=== PATIENT | female | born 1980 | race Two or more races ===

== ENCOUNTER → 2016-11-19 | Outpatient (CLI) | payer OTHER ==
[~2016-11-19] MED LIST: IRONTAB3 PO; PREV30TA OR; TRAZ100T4 PO; [UNRECOGNIZED DRUG - OTHER]; [UNRECOGNIZED DRUG - REMARK] PO
--- NOTE | 2016-12-15 01:53 | ECWPNPC ---
PATIENT NAME: OBED ANDERSON : 1980 GENDER: FEMALE VISIT DATE: 11/19/2016 DISCHARGE DATE: 11/19/16 1610 VISIT LOCKED DATE TIME: PHYSICIAN: PREM JONES RESOURCE: PREM JONES REASON FOR APPOINTMENT 1. CHRONIC SHOULDER/LOW BACK HISTORY OF PRESENT ILLNESS NEW PATIENT CONSULT: WHEN DID YOUR PAIN FIRST START? . BRIEFLY DESCRIBE HOW YOUR PAIN STARTED? . HOW DOES YOUR PAIN CHANGE WITH TIME? . DOES YOUR PAIN AWAKEN YOU FROM SLEEP? . HOW MANY HOURS OF SLEEP DO YOU NORMALLY GET? . ANY DIAGNOSTIC TESTING? . FACILITY WHERE TESTS WERE DONE? ____. PAIN TREATMENT TREATMENT YES CANCER HAVE YOU EVER HAD ANY TYPE OF CANCER?NO NO. PAIN SCREENING: PATIENT HAS A COMPLAINT OF ACUTE OR CHRONIC PAIN YES FALL RISK SCREENING: SCREENING :NO FALLS IN THE PAST YEAR DONIS INVENTORY: QUESTIONNAIRE ASSESSEDYES SCORE VALUE CALCULATED YES SCORE: 2/63. DENIES SUICIDDAL OR HOMICIDAL IDEATION TODAY'S VISIT: NOTES: ONSET OF PAIN AFER WORKING AT [employer] AND HAD RESIDENT "POP HIS JAW OUT" ON HER SHOULDER RIGHT. HAS ALSO NOTED THE PAIN SENSATION IF CARRYING AN OBJECT ON THE RIGHT SIDE. RIGHT FINGER TIPS, GOES NUMB. THEY TEURN WHITE AND CAN HURT WITH THE COLD. STRENGTH IS FAIRLY NORMAL BUT SLIGHTLY DECREASED. NO SWELLING IN JOINTS. SHOULDER CAN OCCASIONALLY SWELL. LOW BACK PAIN HAS BEEN PRESENT SINCE PRIOR TO GASTRIC BYPASS SURGERY. ANN MARIE IS WORSE WHEN BENDING OVER AND ESPECIALLY WHEN STANDING BACK UP. WORST IN EARLY AM. PAIN RARELY RADIATES TO HIP OR LEGS. NO N/T IN FEET OR TOES. NO WEAKNESS I LEGS. HAS DONE PT AND HAD TENS WHICH WAS HELPFUL. HAD MRI AT [facility]. NO INJECTIONS, NO CHIRO. PAIN CAN LIMIT ACTIVIES AFTER. CAN DECREASE SLEEP. . CURRENT MEDICATIONS TAKING FERROUS SULFATE 325 (65 FE) MG TABLET 1 TABLET WITH MEAL ORALLY TWICE A DAY TAKING COLACE 100 MG CAPSULE 1 -2 CAPSULES NEEDED ORALLY ONCE A DAY TAKING ACETAMINOPHEN 500 MG CAPSULE 2 CAPSULES NEEDED ORALLY EVERY 6-8 HRS NEEDED FOR PAIN TAKING OMEPRAZOLE 40 MG CAPSULE DELAYED RELEASE 1 CAPSULE BEFORE MEAL ORALLY ONCE A DAY TAKING NATURAL VITAMIN D-3 5000 UNIT TABLET 1 TAB WITH MEAL ORALLY TAKING TRAZODONE HCL 100 MG TABLET 1 TABLET AT BEDTIME ORALLY ONCE A DAY TAKING TRAMADOL HCL 50 MG TABLET 1 TAB ORALLY TID TAKING BACLOFEN 10 MG TABLET 1 TABLET WITH FOOD OR MILK ORALLY THREE TIMES A DAY NOT-TAKING PHYSICAL THERAPY EVALUATE AND TREAT PHYSICAL THERAPY DIRECTED CHRONIC RIGHT SHOULDER PAIN 1-3X/WEEK NOT-TAKING VITAMIN B-12 1000 MCG TABLET SUBLINGUAL 1 TABLET UNDER THE TONGUE AND ALLOW TO DISSOLVE SUBLINGUAL ONCE A DAY NOT-TAKING AMOXICILLIN 500 MG CAPSULE 1 CAPSULE ORALLY 3 TIMES A DAY NOT-TAKING VENOFER 20 MG/ML SOLUTION DIRECTED INTRAVENOUS NOT-TAKING METHOCARBAMOL 500 MG TABLET 2 TABS ORAL EVERY 6 HOURS MEDICATION LIST REVIEWED AND RECONCILED WITH THE PATIENT PAST MEDICAL HISTORY GASTROESOPHAGEAL REFLUX DISEASE, ESOPHAGITIS PRESENCE NOT SPECIFIED IRON DEFICIENCY ANEMIA, UNSPECIFIED IRON DEFICIENCY ANEMIA TYPE STATUS POST BARIATRIC SURGERY PRIMARY INSOMNIA VITAMIN D DEFICIENCY VITAMIN B12 DEFICIENCY ALLERGIES BACTRIM DS: RASH/FEVER: ALLERGY SURGICAL HISTORY ASTRIC BY PASS 2005 SECTION 2007,2011 FAMILY HISTORY FATHER: ALIVE MOTHER: ALIVE SIBLINGS: ALIVE SON(S): ALIVE DAUGHTER(S): ALIVE SOCIAL HISTORY GENERAL: TOBACCO USE ARE YOU A:NONSMOKER RECREATIONAL DRUG USE DRUG USE?NO CAFFEINE CAFFEINE USE?NO DIET: NONE. EXERCISE: WALKS DAILY. MARITAL STATUS: . OTHERS AT HOME: MOTHER, SISTER AND CHILDREN. PETS: CAT. SABIANIST: NO PREFERENCE. LANGUAGE: [place]. EDUCATION: GRADUATED HS. PSYCHOLOGICAL HX TREATMENTNO PAIN CLINIC PFS, CLERGY, PUBLIC HEALTH REFERRALS CLERGY REFERRAL NEEDED?NO WAS THE PROVIDER NOTIFIED OF ANY PERTINENT INFO?NO PFS REFERRAL NEEDED?NO PUBLIC HEALTH REFERRAL NEEDED?NO PATIENT: ____. ADVANCED DIRECTIVES HEALTH CARE PROXY?NO POWER OF CLEANING TEAM MEMBER?NO HOSPITALIZATION/MAJOR DIAGNOSTIC PROCEDURE SURGERIES LISTED ONLY HOSPITALIZATIONS REVIEW OF SYSTEMS CONSTITUTIONAL: ANY CHANGE IN YOUR MEDICAL CONDITION? NO . CHILLS NO . FEVER NO . INFECTION: DO YOU HAVE NEW INFECTIONS? NO . DO YOU HAVE HISTORY OF MRSA? NO . MUSCULOSKELETAL: ANY NEW PATTERNS OF PAIN OR NUMBNESS? NO . SYTEMIC LUPUS NO . GASTROENTEROLOGY: GENERAL S/P GASTRIC BYPASS SURGERY 2004. HAS GI PAIN, NO GI BLEED. . ANY NEW CHANGE IN BOWEL CONTROL? NO . BARRETTS ESOPHAGUS NO . CIRRHOSIS NO . HEPATITIS NO . LIVER FAILURE NO . ACID REFLUX YES - TAKES PRN NEEDED . UNEXPLAINED WEIGHT LOSS NO . GENITOURINARY: ANY NEW CHANGE IN BLADDER CONTROL? NO . IS THERE A CHANCE YOU COULD BE ? NO . HEMATOLOGY/LYMPH: DO YOU TAKE ANY BLOOD THINNERS? (FOR EXAMPLE- COUMADIN, PLAVIX, AGGRENOX, PLATEL, PRADAXA, OR XARELTO) NO . WHEN WAS YOUR LAST DOSE? DATE: TIME: . LOW PLATELET COUNT NO . SICKLE CELL DISEASE NO . VON WILLIEBRANDS NO . FACTOR V LEIDEN NO . THALLASEMIA NO . ANEMIA CHRONIC- HAS HAD IRON INFUSIONS. HAS NEEDED BLOOD TRANSFUSION . EASY BRUISING NO . NEUROLOGY: HAVE YOU FALLEN IN THE PAST 6 MONTHS? NO . ANY NEW EXTREMITY NUMBNESS OR WEAKNESS? NO . HEAD INJURY NO . DEMENTIA NO . CEREBRAL PALSY NO . MULTIPLE SCLEROSIS NO . DIZZINESS NO . HEADACHE NO . STROKES NO . VERTIGO NO . CARDIOLOGY: DO YOU HAVE A PACEMAKER OR DEFIBRILLATOR? NO . ANGINA NO . HEART ATTACK NO . HEART SURGERY NO . CONGESTIVE HEART FAILURE/FLUID OVERLOAD NO . CHEST PAIN NO . HIGH BLOOD PRESSURE NO . IRREGULAR HEART BEAT NO . RESPIRATORY: HAVE YOU BEEN SICK IN THE PAST WEEK? NO . FEVER NO . FLU LIKE SYMPTOMS? NO . CPAP NO . BYPAP NO . ASTHMA NO . EMPHYSEMA NO . CHRONIC LUNG DISEASES NO . SHORTNESS OF BREATH ON EXERTION NO . DO YOU USE ANY TYPE OF TOBACCO (SMOKE, SMOKELESS, CHEW)? NO . COUGH NO . SNORING NO . INTEGUMENTARY: DO YOU HAVE ANY RASHES OR OPEN SORES? NO . ALLERGIC/IMMUNO: ARE YOU ALLERGIC TO SHELLFISH OR IV DYE? NO . ANY NEW ALLERGIES? NO . PSYCHIATRIC: DO YOU HAVE THOUGHTS OF HURTING YOURSELF OR SOMEONE ELSE? NO . ARE YOU ABUSED, NEGLECTED, OR IN AN UNSAFE ENVIRONMENT? NO . ENDOCRINOLOGY: ARE YOU DIABETIC? NO . THYROID DISORDER NO . OTHER: DO YOU NEED ANY PRESCRIPTIONS? NO . IF YES, PLEASE LIST: ____ . ANY NEW PROBLEMS WITH YOUR MEDICATIONS? NO . WHEN DID YOU LAST EAT? ____ . WHEN DID YOU LAST DRINK? ____ . WHAT DID YOU LAST DRINK? ____ . NAME OF PERSON DRIVING YOU HOME? ____ . DO YOU HAVE ANY OTHER QUESTIONS OR CONCERNS NO . REVIEWED BY: PROVIDER: PREM CHAPPELLP . VITAL SIGNS WT 175 LBS, HT 65 IN, BMI 29.12 INDEX, BP 114/60 MM HG, HR 100 /MIN, RR 18 /MIN, TEMP 98.0 F, OXYGEN SAT % 100%, NA INITIALS SC14:50, REVIEWED BY: KG. EXAMINATION GENERAL EXAMINATION: PSYCHALERT , ORIENTED X 3 , APPROPRIATE MOOD AND AFFECT , TALKATIVE. HEENT:NORMOCEPHALIC, NO LYMPHADENOPATHY, NO THYROMEGLY. LUNGS:CLEAR TO AUSCULTATION BILATERALLY. HEART:HEART RATE REGULAR, NORMAL S1S2, NO MURMURS, CLICK OR RUBS. ABDOMEN:SOFT AND NOT TENDER, BOWEL SOUNDS ACTIVE IN ALL QUADRANTS. MUSCULOSKELETAL:MUSCLE STRENGTH TESTING 5/5 BILATERAL LOWER EXTREMITIES. CAN FLEX TO 45 DEGREES, EXTEND TO 10 DEGREES, ROTATE WITHOUT DIFFICULTY. NEG SLR. POINT TENDERNESS OVER LUMBOSACRAL AXIS. POSTURE UPRIGHT. GAIT NONANTALGIC, TRIGGER POINTS:, ELICITED WITH PALPATION OVER LUMBAR PARAVERTEBRAL MUSCLES AND INTO THE SACRUM. TIGHT FIBROUS BANDS ARE IDENTIFIED IN THIS REGION RESTRICTION OF ROM IN THIS AREA. NEUROLOGIC EXAM:NO SENSORY EFICEIT IN LOWER EXTREMITIES TO LIGHTTOUCH. DIAGNOSTIC TESTS REVIEWEDXRAYS OF LUMBAR SPINE COMPLETED ON 10/13/15. THIS DEMONSTRATED MILD SCOLIOSIS. L5-S1 DEGENERATIVE DISC DISEASE. NO VERTEBAL COMPRESSSION CONFORMITIES.. ASSESSMENTS MYALGIA - M79.1 (PRIMARY) TREATMENT MYALGIA STOP BACLOFEN TABLET, 10 MG, 1 TABLET WITH FOOD OR MILK, ORALLY, THREE TIMES A DAY START BACLOFEN TABLET, 20 MG, 1 TABLET WITH FOOD OR MILK, ORALLY, EVERY 8 HRS, 30 DAY(S), 90, REFILLS 2 [facility] SPINE, SCOLIOSIS [id number],PREM M 11/19/2016 4:01:25 PM > VISIBLE ROTATION TRIGGER POINT 3 + WANDAPREM JONES 11/19/2016 4:02:54 PM > RIGHT NECK/SHOULDER NOTES: BACLOFEN: TAKE 1/2 TAB IN AM AND MIDDAY, AND WHOLE TAB AT BEDTIME. PROCEDURE CODES FA211 ESTABILISHED PATIENT [facility] CHARGE FOLLOW UP AFTER INJECTION (REASON: [facility] NEED MRI[facility]S D[facility] AND LOW BACK. CHECK AUTH FOR TPI) ELECTRONICALLY SIGNED BY KALI RAHMAN ON 12/14/2016 AT 12:50 PM EST DISCLAIMER : THIS IS A VISIT SUMMARY EXTRACTED FROM THE [employer] CHART. IT IS NOT A COPY OF THE [employer] PROGRESS NOTE. [facility]
== END ==
LOC: M PAIN 15:20
PROVIDERS: ATTEND Nurse Practitioner Family
DX: G89.29 Other chronic pain (principal); M79.1 Myalgia; K21.9 Gastro-esophageal reflux disease without esophagitis; D50.9 Iron deficiency anemia, unspecified; F51.01 Primary insomnia; E55.9 Vitamin D deficiency, unspecified; D51.9 Vitamin B12 deficiency anemia, unspecified; Z88.1 Allergy status to other antibiotic agents; Z79.1 Long term (current) use of non-steroidal anti-inflammatories (NSAID); Z79.891 Long term (current) use of opiate analgesic; Z79.899 Other long term (current) drug therapy; Z98.84 Bariatric surgery status

== ENCOUNTER 2016-11-25 11:49 | Emergency (ER) | payer OTHER ==
--- NOTE | 2016-11-25 13:01 | EDDOCDS ---
Physician Documentation [facility] Name: Miroslava Bang Age: 36 yrs Sex: Female : 1980 Arrival Date: 11/25/2016 Time: 11:49 Bed TR7 Private MD: Dee Duffy C Disposition: 11/25/16 12:55 Discharged to Home/Self Care. Impression: Acute frontal sinusitis, unspecified. - Condition is Stable. - Discharge Instructions: Sinusitis, Adult. - Prescriptions for Augmentin 875- 125 mg Oral Tablet - take 1 tablet by ORAL route every 12 hours for 10 days; 20 tablet. Fluticasone 50 mcg/actuation Nasal [place], Suspension - inhale 1 spray by INTRANASAL route 2 times per day; 1 bottle. - Medication Reconciliation form. - Follow up: Emergency Department; When: As needed; Reason: Worsening of conditions. Follow up: Dee Duffy; When: Call to arrange an appointment; Reason: Wound/Symptom Recheck, Recheck today's complaints, Worsening of conditions, Continuance of care. - Problem is an ongoing problem. - Symptoms are unchanged. Historical: - Allergies: Bactrim (Rash); - Home Meds: 1. baclofen 20 mg Oral tab twice a day 2. Iron CR 250 mg Oral cpER daily 3. trazodone 100 mg Oral tab nightly - PMHx: Anemia; Depression; - PSHx: Gastric Bypass; ; - Social history: Smoking status: Patient states was never smoker of tobacco. No barriers to communication noted, The patient speaks fluent [place], Speaks appropriately for age. - Family history: Not pertinent. - : The pt / caregiver states he / she is not on anticoagulants. Home medication list is obtained from the patient. - Exposure Risk Screening:: None identified. 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 5 in. (165.10 cm); Pain 0/10; 11:52 Body Mass Index 29.12 (79.38 kg, 165.10 cm) elp Signatures: Floyd Reina RN RN mlb1 Iman Clifton,RN RN ck1 Brennon, Pietro, BONNIE SANC cc10 MTDD
--- NOTE | 2016-11-25 13:01 | EDDOCDS ---
Nurse's Notes [facility] Name: Miroslava Bang Age: 36 yrs Sex: Female : 1980 Arrival Date: 11/25/2016 Time: 11:49 Bed TR7 Private MD: Dee Duffy C Diagnosis: Acute frontal sinusitis, unspecified Presentation: 11/25 11:53 Presenting complaint: Patient states: Sinus and ear congestion, cough, sore throat for ck1 three weeks. Adult Sepsis Screening: The patient does not have new or worsening altered mentation. Patient's respiratory rate is less than 22. Systolic blood pressure is greater than 100. Patient has a qSOFA score of 0- Negative Sepsis Screen. Suicide/Homicide risk assessment- the patient denies having any suicidal and/or homicidal ideations and does not present with any other emotional, behavioral or mental health complaints. Status: Patient is not a special service representative or dependent. Transition of care: patient was not received from another setting of care. 11:53 Acuity: RUBIO Level 4 ck1 11:53 Method Of Arrival: Walkin/Carried/Asstd ck1 Triage Assessment: 11:55 General: Appears in no apparent distress, comfortable, Behavior is appropriate for age, ck1 cooperative. Pain: Location: head Pain currently is 4 out of 10 on a pain scale. HIV screening NA for this visit Offered previously. Neurological: Level of Consciousness is awake, alert, obeys commands, Oriented to person, place, time. Respiratory: Respiratory effort is unlabored, Respiratory pattern is regular, symmetrical. Derm: Skin is intact, is healthy with good turgor, Skin is pink, warm & dry. 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 baclofen 20 mg Oral tab twice a day 2. Iron CR 250 mg Oral cpER daily 3. trazodone 100 mg Oral tab nightly - PMHx: Anemia; Depression; - PSHx: Gastric Bypass; ; - Social history: Smoking status: Patient states was never smoker of tobacco. No barriers to communication noted, The patient speaks fluent Rwandan, Speaks appropriately for age. - Family history: Not pertinent. - : The pt / caregiver states he / she is not on anticoagulants. Home medication list is obtained from the patient. - Exposure Risk Screening:: None identified. Screenin:56 Screening information is obtained from the patient. Fall risk: No risks identified. mlb1 Assistance ADL's: requires no assistance with activities of daily living. Abuse/DV Screen: The patient / caregiver reports he/she is: not in a situation that causes fear, pain or injury. Nutritional screening: No deficits noted. Advance Directives: Currently, there is no health care proxy. home support is adequate. Assessment: 12:59 General: Appears in no apparent distress, Behavior is appropriate for age, cooperative. mlb1 Pain: Denies pain. Respiratory: Airway is patent Respiratory effort is even, unlabored, Breath sounds are clear bilaterally. Reports cough that is persistent. Vital Signs: 11:52 BP 132 / 85; Pulse 114; Resp 20; Temp 98.4; Pulse Ox 100% ; Weight 79.38 kg; Height 5 elp ft. 5 in. (165.10 cm); Pain 0/10; 11:52 Body Mass Index 29.12 (79.38 kg, 165.10 cm) [facility] Vitals: 11:52 Log In Time: November 25, 2016 at 11:50. [facility] ED Course: 11:51 Patient visited by Nidia Dykes PCA. elp 11:51 Dee Duffy is Private Physician. elp 11:51 Patient moved to Waiting elp 11:52 Patient visited by Nidia Dykes PCA. elp 11:52 Patient moved to Pre RCE elp 11:54 Triage Initiated ck1 12:28 Patient moved to Triage 2 ck1 12:37 Patient visited by Iman Clifton RN. ck1 12:40 [facility] cc[facility] 12:40 Neal Horn MD is Attending Physician. cc10 12:48 Patient visited by Pietro Willett PA-C. cc10 12:48 Patient visited by Pietro Willett PA-C. cc10 12:54 Dee Duffy is Referral Physician. cc10 12:56 No IV's were initiated during this patient's visit. No procedures done that require mlb1 assistance. 12:58 Patient moved to [facility] mlb1 13:00 The patient / caregiver is instructed regarding the plan of care and ED course. mlb1 Order Results: There are currently no results for this order. Outcome: 12:55 Discharge ordered by Provider. cc10 13:00 Discharge Assessment: Patient awake, alert and oriented x 3. No cognitive and/or mlb1 functional deficits noted. Patient verbalized understanding of disposition instructions. patient administered narcotics - no. The following High Risk Discharge criteria are identified: None. Discharged to home ambulatory. Condition: good. Discharge instructions given to patient, Instructed on discharge instructions, follow up and referral plans. Demonstrated understanding of instructions, medications, Pt was receptive of discharge instructions/ teaching. Prescriptions given X 2. No special radiology studies were completed. Property sent home with patient. 13:00 Patient left the ED. mlb1 Signatures: Floyd Reina RN RN mlb1 Iman Clifton,RN RN ck1 Nidia Dykes, HOSIERY MATER HOSIERY MATER Pietro Vizcarra, PA-C PA-C cc10 MTDD
--- NOTE | 2016-11-27 14:01 | EDDOCDS ---
Nurse's Notes [facility] Name: Miroslava Bang Age: 36 yrs Sex: Female : 1980 Arrival Date: 11/25/2016 Time: 11:49 Bed TR7 Private MD: Dee Duffy C Diagnosis: Acute frontal sinusitis, unspecified Presentation: 11/25 11:53 Presenting complaint: Patient states: Sinus and ear congestion, cough, sore throat for ck1 three weeks. Adult Sepsis Screening: The patient does not have new or worsening altered mentation. Patient's respiratory rate is less than 22. Systolic blood pressure is greater than 100. Patient has a qSOFA score of 0- Negative Sepsis Screen. Suicide/Homicide risk assessment- the patient denies having any suicidal and/or homicidal ideations and does not present with any other emotional, behavioral or mental health complaints. Status: Patient is not a director of neighborhood service center or dependent. Transition of care: patient was not received from another setting of care. 11:53 Acuity: RUBIO Level 4 ck1 11:53 Method Of Arrival: Walkin/Carried/Asstd ck1 Triage Assessment: 11:55 General: Appears in no apparent distress, comfortable, Behavior is appropriate for age, ck1 cooperative. Pain: Location: head Pain currently is 4 out of 10 on a pain scale. HIV screening NA for this visit Offered previously. Neurological: Level of Consciousness is awake, alert, obeys commands, Oriented to person, place, time. Respiratory: Respiratory effort is unlabored, Respiratory pattern is regular, symmetrical. Derm: Skin is intact, is healthy with good turgor, Skin is pink, warm & dry. 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 baclofen 20 mg Oral tab twice a day 2. Iron CR 250 mg Oral cpER daily 3. trazodone 100 mg Oral tab nightly - PMHx: Anemia; Depression; - PSHx: Gastric Bypass; ; - Social history: Smoking status: Patient states was never smoker of tobacco. No barriers to communication noted, The patient speaks fluent [place] Lankan, Speaks appropriately for age. - Family history: Not pertinent. - : The pt / caregiver states he / she is not on anticoagulants. Home medication list is obtained from the patient. - Exposure Risk Screening:: None identified. Screenin:56 Screening information is obtained from the patient. Fall risk: No risks identified. mlb1 Assistance ADL's: requires no assistance with activities of daily living. Abuse/DV Screen: The patient / caregiver reports he/she is: not in a situation that causes fear, pain or injury. Nutritional screening: No deficits noted. Advance Directives: Currently, there is no health care proxy. home support is adequate. Assessment: 12:59 General: Appears in no apparent distress, Behavior is appropriate for age, cooperative. mlb1 Pain: Denies pain. Respiratory: Airway is patent Respiratory effort is even, unlabored, Breath sounds are clear bilaterally. Reports cough that is persistent. Vital Signs: 11:52 BP 132 / 85; Pulse 114; Resp 20; Temp 98.4; Pulse Ox 100% ; Weight 79.38 kg; Height 5 elp ft. 5 in. (165.10 cm); Pain 0/10; 11:52 Body Mass Index 29.12 (79.38 kg, 165.10 cm) [facility] Vitals: 11:52 Log In Time: November 25, 2016 at 11:50. [facility] ED Course: 11:51 Patient visited by Nidia Dykes PCA. elp 11:51 Dee Duffy is Private Physician. elp 11:51 Patient moved to Waiting elp 11:52 Patient visited by Nidia Dykes PCA. elp 11:52 Patient moved to Pre RCE elp 11:54 Triage Initiated ck1 12:28 Patient moved to Triage 2 ck1 12:37 Patient visited by Iman Clifton RN. ck1 12:40 Piet[facility]lett [facility]C [facility] cc[facility] 12:40 Neal Horn MD is Attending Physician. cc10 12:48 Patient visited by Pietro Willett PA-C. cc10 12:48 Patient visited by Pietro Willett PA-C. cc10 12:54 Dee Duffy is Referral Physician. cc10 12:56 No IV's were initiated during this patient's visit. No procedures done that require mlb1 assistance. 12:58 Patient moved to [facility] mlb1 13:00 The patient / caregiver is instructed regarding the plan of care and ED course. mlb1 15:08 T-Sheet-- Draft Copy was scanned into [facility] and attached to record. 15:16 Patient name changed from Miroslava\S\Delia\S\Boulio\S\ to Miroslava\S\A\S\Boulio. EDMS 15:18 [facility] Payment Agreement was scanned into [facility] and attached to record. Order Results: There are currently no results for this order. Outcome: 12:55 Discharge ordered by Provider. cc10 13:00 Discharge Assessment: Patient awake, alert and oriented x 3. No cognitive and/or mlb1 functional deficits noted. Patient verbalized understanding of disposition instructions. patient administered narcotics - no. The following High Risk Discharge criteria are identified: None. Discharged to home ambulatory. Condition: good. Discharge instructions given to patient, Instructed on discharge instructions, follow up and referral plans. Demonstrated understanding of instructions, medications, Pt was receptive of discharge instructions/ teaching. Prescriptions given X 2. No special radiology studies were completed. Property sent home with patient. 13:00 Patient left the ED. mlb1 Signatures: Dispatcher [facility] [facility] Madelaine Henao, Reg Reg gb Daysi Burkett, Reg Reg lg Floyd Reina RN RN mlb1 Iman CliftonRN RN ck1 Nidia Dykes, PROGRAM ASSISTANT PROGRAM ASSISTANT Pietro Vizcarra, PA-C PA-C cc10 Chart Complete MTDD
--- NOTE | 2016-11-27 14:01 | EDDOCDS ---
Physician Documentation [facility] Name: Miroslava Bang Age: 36 yrs Sex: Female : 1980 Arrival Date: 11/25/2016 Time: 11:49 Bed TR7 Private MD: Dee Duffy C Disposition: 11/25/16 12:55 Discharged to Home/Self Care. Impression: Acute frontal sinusitis, unspecified. - Condition is Stable. - Discharge Instructions: Sinusitis, Adult. - Prescriptions for Augmentin 875- 125 mg Oral Tablet - take 1 tablet by ORAL route every 12 hours for 10 days; 20 tablet. Fluticasone 50 mcg/actuation Nasal [place], Suspension - inhale 1 spray by INTRANASAL route 2 times per day; 1 bottle. - Medication Reconciliation form. - Follow up: Emergency Department; When: As needed; Reason: Worsening of conditions. Follow up: Dee Duffy; When: Call to arrange an appointment; Reason: Wound/Symptom Recheck, Recheck today's complaints, Worsening of conditions, Continuance of care. - Problem is an ongoing problem. - Symptoms are unchanged. Historical: - Allergies: Bactrim (Rash); - Home Meds: 1. baclofen 20 mg Oral tab twice a day 2. Iron CR 250 mg Oral cpER daily 3. trazodone 100 mg Oral tab nightly - PMHx: Anemia; Depression; - PSHx: Gastric Bypass; ; - Social history: Smoking status: Patient states was never smoker of tobacco. No barriers to communication noted, The patient speaks fluent Panamanian, Speaks appropriately for age. - Family history: Not pertinent. - : The pt / caregiver states he / she is not on anticoagulants. Home medication list is obtained from the patient. - Exposure Risk Screening:: None identified. 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 5 in. (165.10 cm); Pain 0/10; 11:52 Body Mass Index 29.12 (79.38 kg, 165.10 cm) elp MDM: 15:08 T-Sheet-- Draft Copy was scanned into [employer] and attached to record. gb 15:18 [facility] Payment Agreement was scanned into [employer] and attached to record. lg Signatures: Madelaine Henao, Reg Reg gb Daysi Burkett, Reg Reg lg Floyd Reina RN RN mlb1 Iman CliftonRN RN ck1 Pietro Willett, PAGertrudeC PAGertrudeC cc10 The chart was reviewed and I authenticate all verbal orders and agree with the evaluation and treatment provided.Attachments: 15:08 T-Sheet-- Draft Copy gb 15:18 [facility] Payment Agreement lg Chart Complete MTDD
--- NOTE | 2016-11-27 14:01 | EDDOCDS ---
Physician Documentation [facility] Name: Miroslava Bang Age: 36 yrs Sex: Female : 1980 Arrival Date: 11/25/2016 Time: 11:49 Bed TR7 Private MD: Dee Duffy C Disposition: 11/25/16 12:55 Discharged to Home/Self Care. Impression: Acute frontal sinusitis, unspecified. - Condition is Stable. - Discharge Instructions: Sinusitis, Adult. - Prescriptions for Augmentin 875- 125 mg Oral Tablet - take 1 tablet by ORAL route every 12 hours for 10 days; 20 tablet. Fluticasone 50 mcg/actuation Nasal [place], Suspension - inhale 1 spray by INTRANASAL route 2 times per day; 1 bottle. - Medication Reconciliation form. - Follow up: Emergency Department; When: As needed; Reason: Worsening of conditions. Follow up: Dee Duffy; When: Call to arrange an appointment; Reason: Wound/Symptom Recheck, Recheck today's complaints, Worsening of conditions, Continuance of care. - Problem is an ongoing problem. - Symptoms are unchanged. Historical: - Allergies: Bactrim (Rash); - Home Meds: 1. baclofen 20 mg Oral tab twice a day 2. Iron CR 250 mg Oral cpER daily 3. trazodone 100 mg Oral tab nightly - PMHx: Anemia; Depression; - PSHx: Gastric Bypass; ; - Social history: Smoking status: Patient states was never smoker of tobacco. No barriers to communication noted, The patient speaks fluent French, Speaks appropriately for age. - Family history: Not pertinent. - : The pt / caregiver states he / she is not on anticoagulants. Home medication list is obtained from the patient. - Exposure Risk Screening:: None identified. 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 5 in. (165.10 cm); Pain 0/10; 11:52 Body Mass Index 29.12 (79.38 kg, 165.10 cm) elp MDM: 15:08 T-Sheet-- Draft Copy was scanned into [employer] and attached to record. gb 15:18 [facility] Payment Agreement was scanned into [employer] and attached to record. lg Signatures: Madelaine Henao, Reg Reg gb Daysi Burkett, Reg Reg lg Floyd Reina RN RN mlb1 Iman CliftonRN RN ck1 Pietro Willett, PAGertrudeC PAGertrudeC cc10 The chart was reviewed and I authenticate all verbal orders and agree with the evaluation and treatment provided.Attachments: 15:08 T-Sheet-- Draft Copy gb 15:18 [facility] Payment Agreement lg Chart Complete MTDD
== END 2016-11-25 13:00 | disposition home or self-care (01) ==
LOC: M ED 11:49
DX: J01.90 Acute sinusitis, unspecified (principal); H92.09 Otalgia, unspecified ear; D64.9 Anemia, unspecified; F32.9 Major depressive disorder, single episode, unspecified; Z79.899 Other long term (current) drug therapy; Z88.1 Allergy status to other antibiotic agents

== ENCOUNTER 2017-01-09 10:07 | Emergency (ER) | payer OTHER ==
[~2017-01-09] VITALS: Ht 165.1 cm; Wt 79.4 kg
[2017-01-09 10:08] VITALS: BP 129/98
[2017-01-09] MEDS ORDERED: NORCOTAB PO (10:36)
[2017-01-09] MEDS ORDERED: BACL10TA2 PO (10:36)
== END 2017-01-09 10:46 | disposition home or self-care (01) ==
LOC: M ED 10:42
DX: S29.012A Strain of muscle and tendon of back wall of thorax, initial encounter (principal); X58.XXXA Exposure to other specified factors, initial encounter; Y92.89 Other specified places as the place of occurrence of the external cause; Y93.89 Activity, other specified; Y99.8 Other external cause status; R10.30 Lower abdominal pain, unspecified; D64.9 Anemia, unspecified; Z79.899 Other long term (current) drug therapy

== ENCOUNTER → 2017-01-27 | Outpatient (CLI) | payer OTHER ==
[~2017-01-27] MED LIST changes: +BACL10TA2 PO; +NORCOTAB PO
--- NOTE | 2017-02-01 23:59 | ECWPNPC ---
PATIENT NAME: OBED ANDERSON : 1980 GENDER: FEMALE VISIT DATE: 01/27/2017 DISCHARGE DATE: 01/27/17 0000 VISIT LOCKED DATE TIME: PHYSICIAN: PREM JONES RESOURCE: PREM JONES REASON FOR APPOINTMENT 1. FOLLOW UP HISTORY OF PRESENT ILLNESS TODAY'S VISIT: NOTES: FOLLOW UP VISIT. WAS TO BE SCHEDULED FOR TPI BUT THIS HAS NOT BEEN SCHEDULED/COMPLETED YET. HAD THE FLU X 2 AND THEN STREP. BACLOFEN HAS BEEN HELPINGRATES PAIN TODAY 05/17. DESCRIBES PAIN TENDER AND THROBBING. REPORTS PAIN IS LOCATED ACROSS RIGHT NECK AND SHOULDER AND ACROSS THE LOW BACK. NO RADIATION OF PAIN TO RIGHT ARM OR TO LEGS.. CURRENT MEDICATIONS TAKING FERROUS SULFATE 325 (65 FE) MG TABLET 1 TABLET WITH MEAL ORALLY TWICE A DAY TAKING COLACE 100 MG CAPSULE 1 -2 CAPSULES NEEDED ORALLY ONCE A DAY TAKING ACETAMINOPHEN 500 MG CAPSULE 2 CAPSULES NEEDED ORALLY EVERY 6-8 HRS NEEDED FOR PAIN TAKING OMEPRAZOLE 40 MG CAPSULE DELAYED RELEASE 1 CAPSULE BEFORE MEAL ORALLY ONCE A DAY TAKING NATURAL VITAMIN D-3 5000 UNIT TABLET 1 TAB WITH MEAL ORALLY DAILY TAKING TRAZODONE HCL 100 MG TABLET 1 TABLET AT BEDTIME ORALLY ONCE A DAY TAKING TRAMADOL HCL 50 MG TABLET 1 TAB ORALLY TID TAKING BACLOFEN 20 MG TABLET 1 TABLET WITH FOOD OR MILK ORALLY EVERY 8 HRS TAKING LORATADINE 10 MG TABLET 1 TABLET ORALLY ONCE A DAY NOT-TAKING PHYSICAL THERAPY EVALUATE AND TREAT PHYSICAL THERAPY DIRECTED CHRONIC RIGHT SHOULDER PAIN 1-3X/WEEK NOT-TAKING VITAMIN B-12 1000 MCG TABLET SUBLINGUAL 1 TABLET UNDER THE TONGUE AND ALLOW TO DISSOLVE SUBLINGUAL ONCE A DAY NOT-TAKING AMOXICILLIN 500 MG CAPSULE 1 CAPSULE ORALLY 3 TIMES A DAY NOT-TAKING VENOFER 20 MG/ML SOLUTION DIRECTED INTRAVENOUS NOT-TAKING METHOCARBAMOL 500 MG TABLET 2 TABS ORAL EVERY 6 HOURS MEDICATION LIST REVIEWED AND RECONCILED WITH THE PATIENT PAST MEDICAL HISTORY GASTROESOPHAGEAL REFLUX DISEASE, ESOPHAGITIS PRESENCE NOT SPECIFIED IRON DEFICIENCY ANEMIA, UNSPECIFIED IRON DEFICIENCY ANEMIA TYPE STATUS POST BARIATRIC SURGERY PRIMARY INSOMNIA VITAMIN D DEFICIENCY VITAMIN B12 DEFICIENCY ALLERGIES BACTRIM DS: RASH/FEVER: ALLERGY VITAL SIGNS WT 177.8 LBS, HT 65 IN, BMI 29.58 INDEX, BP 95/50 MM HG, REPEAT BP 108/58 MM HG, HR 90 /MIN, RR 18 /MIN, TEMP 97.6 F, OXYGEN SAT % 99, NA INITIALS [id number], REVIEWED BY: AD. EXAMINATION GENERAL EXAMINATION: PSYCHALERT , ORIENTED X 3 , APPROPRIATE MOOD AND AFFECT , TALKATIVE. HEENT:NORMOCEPHALIC, NO LYMPHADENOPATHY, NO THYROMEGLY. LUNGS:CLEAR TO AUSCULTATION BILATERALLY. HEART:HEART RATE REGULAR, NORMAL S1S2, NO MURMURS, CLICK OR RUBS. MUSCULOSKELETAL:MUSCLE STRENGTH TESTING 5/5 BILATERAL UPPER AND LOWER EXTREMITIES. POINT TENDERNESS OVER LUMBOSACRAL AXIS. POSTURE UPRIGHT. GAIT NONANTALGIC, TRIGGER POINTS:, ELICITED WITH PALPATION OVER LUMBAR PARAVERTEBRAL MUSCLES AND INTO THE SACRUM. TIGHT FIBROUS BANDS ARE IDENTIFIED IN THIS REGION RESTRICTION OF ROM IN THIS AREA. NEUROLOGIC EXAM:NO SENSORY EFICEIT IN LOWER EXTREMITIES TO LIGHTTOUCH. ASSESSMENTS MYALGIA - M79.1 (PRIMARY) CERVICALGIA - M54.2 TREATMENT MYALGIA REFILL BACLOFEN TABLET, 20 MG, 1 TABLET WITH FOOD OR MILK, ORALLY, EVERY 8 HRS, 30 DAY(S), 90, REFILLS 2 OTHERS NOTES: CALL DESIGN DRAFTER CHIEF SHELBI ABOUT NOT BEING NOTIFIED ABOUT INJECTION TREATMENT WAS MOVED. [phone]. OTC CREAMS - ASPERCREME WITH LIDOCAINE, TIGERBALM, BLUE EMU, BIOFREEZE. PREVENTIVE MEDICINE PAIN CLINIC TEACHING: PROCEDURE TEACHING TPI PROCEDURE REVIEWED WITH PT AND SHE VERBALIZED UNDERSTANDING. SHE ALREADY HAS THE PRE-PROCEDURE PAPER AND DECLINES A NEW ONE. PROCEDURE CODES FA211 ESTABILISHED PATIENT [facility] CHARGE DISPOSITION & COMMUNICATION FOLLOW UP SCEDULE FOR TPI ELECTRONICALLY SIGNED BY KALI RAHMAN ON 02/01/2017 AT 08:58 AM EDT DISCLAIMER : THIS IS A VISIT SUMMARY EXTRACTED FROM THE [employer] CHART. IT IS NOT A COPY OF THE [employer] PROGRESS NOTE. CLARISSA
== END | disposition home or self-care (01) ==
LOC: M PAIN 14:00
PROVIDERS: ATTEND Nurse Practitioner Family
DX: Z09 Encounter for follow-up examination after completed treatment for conditions other than malignant neoplasm (principal); G89.29 Other chronic pain; M79.1 Myalgia; M54.2 Cervicalgia; K21.9 Gastro-esophageal reflux disease without esophagitis; D50.9 Iron deficiency anemia, unspecified; F51.01 Primary insomnia; E55.9 Vitamin D deficiency, unspecified; E53.8 Deficiency of other specified B group vitamins; Z98.84 Bariatric surgery status; Z79.899 Other long term (current) drug therapy; Z79.891 Long term (current) use of opiate analgesic; Z88.1 Allergy status to other antibiotic agents

== ENCOUNTER 2017-02-18 14:34 | Emergency (ER) | payer MEDICAID, OTHER ==
[~2017-02-18] VITALS: Ht 165.1 cm; Wt 81.6 kg
[2017-02-18] MEDS ORDERED: TYLE325T5 PO (14:45)
[2017-02-18] MEDS ORDERED: KETOROLAC 60 MG/2 ML VIAL (J1885) IM ONE (15:30)
[2017-02-18] MEDS ORDERED: PRED20TA PO (15:32)
[2017-02-18] MEDS ORDERED: CYCL10TA PO (15:32)
[2017-02-18 15:56] VITALS: BP 113/61
== END 2017-02-18 15:59 | disposition home or self-care (01) ==
LOC: M ED 15:43
DX: S39.012A Strain of muscle, fascia and tendon of lower back, initial encounter (principal); X50.0XXA Overexertion from strenuous movement or load, initial encounter; Y92.89 Other specified places as the place of occurrence of the external cause; Y93.89 Activity, other specified; Y99.8 Other external cause status; Z98.84 Bariatric surgery status; Z88.2 Allergy status to sulfonamides; Z79.899 Other long term (current) drug therapy
CPT/HCPCS: 96372; 99282; J1885

== ENCOUNTER → 2017-03-22 | Outpatient (CLI) | payer OTHER ==
[~2017-03-22] MED LIST changes: +CYCL10TA PO; +PRED20TA PO; +TYLE325T5 PO
[2017-03-22 08:35] LABS: BASO % 0.8 % (0.0-1.0); EOS # 0.1 K/mm3 (0.0-0.50); LYMPH # 1.3 K/mm3 (1.5-4.5); MEAN CORPUSCULAR HEMOGLOBIN 26.3 pg (27.0-33.0); MEAN CORPUSCULAR HGB CONC 31.3 g/dl (32.0-36.5); MEAN CORPUSCULAR VOLUME 84.2 fl (80.0-96.0); MONO # 0.2 K/mm3 (0.0-0.8); MONO % 6.9 % (0.0-5.0); NEUTROPHILS # 1.7 K/mm3 (1.8-7.7); NEUTROPHILS % 51.9 % (36.0-66.0); RED CELL DISTRIBUTION WIDTH 14.3 % (11.5-14.5); WHITE BLOOD COUNT 3.2 K/mm3 (4.0-10.0)
[2017-03-22 08:58] LABS: ALBUMIN 3.4 GM/DL (3.2-5.2); ALKALINE PHOSPHATASE 59 U/L (45-117); ALT/SGPT 14 U/L (12-78); ANION GAP 6 MEQ/L (8-16); AST/SGOT 9 U/L (15-37); BILIRUBIN,TOTAL 0.3 MG/DL (0.2-1.0); BLOOD UREA NITROGEN 10 MG/DL (7-18); CARBON DIOXIDE LEVEL 29 MEQ/L (21-32); CHLORIDE LEVEL 106 MEQ/L (98-107); CHOLESTEROL LEVEL 136 MG/DL (<200); CREATININE FOR GFR 0.73 MG/DL (0.55-1.02); FERRITIN 3 NG/ML (8-252); GLOMERULAR FILTRATION RATE > 60.0 (>60); GLUCOSE, FASTING 79 MG/DL (70-105); SODIUM LEVEL 141 MEQ/L (136-145); TOTAL PROTEIN 6.5 GM/DL (6.4-8.2); TRIGLYCERIDES LEVEL 81 MG/DL (<150)
== END ==
LOC: M LAB 07:39
PROVIDERS: ATTEND Physician Assistant Medical
DX: E61.1 Iron deficiency (principal); E78.2 Mixed hyperlipidemia; E55.9 Vitamin D deficiency, unspecified

== ENCOUNTER → 2017-04-13 | Outpatient (CLI) | payer OTHER ==
[~2017-04-13] MED LIST changes: +AMOX500C PO; +CLAR10CA3 PO; +ULTR50TA PO
--- NOTE | 2017-04-13 09:05 | REP ---
MRI CERVICAL SPINE WITHOUT CONTRAST: HISTORY: Neck pain. COMPARISON: 10/12/2013. There is no disc bulge or herniation. The spinal canal and neural foramina are patent. The spinal cord is normal in signal intensity. Normal signal intensity is present in the cervical vertebral bodies. IMPRESSION: Normal study. Signed by Maximus Reilly MD 04/13/2017 09:41 A
== END ==
LOC: M RAD 06:46
PROVIDERS: ATTEND Physician Assistant Medical
DX: M54.2 Cervicalgia (principal)

== ENCOUNTER 2017-04-20 14:15 | Emergency (ER) | payer OTHER ==
[~2017-04-20] VITALS: Ht 167.6 cm; Wt 86.6 kg
[~2017-04-20 14:15] MED LIST changes: -AMOX500C PO; -CLAR10CA3 PO; -ULTR50TA PO
[2017-04-20] MEDS ORDERED: CLAR10CA3 PO (14:29)
[2017-04-20] MEDS ORDERED: ULTR50TA PO (14:42)
[2017-04-20] MEDS ORDERED: AMOX500C PO (14:42)
[2017-04-20 14:56] VITALS: BP 121/71
== END 2017-04-20 14:59 | disposition home or self-care (01) ==
LOC: M ED 14:48
DX: K02.9 Dental caries, unspecified (principal); K08.89 Other specified disorders of teeth and supporting structures; K08.59 Other unsatisfactory restoration of tooth; Z88.2 Allergy status to sulfonamides; Z79.899 Other long term (current) drug therapy

== ENCOUNTER → 2017-05-17 | Outpatient (CLI) | payer OTHER ==
[~2017-05-17] MED LIST changes: +AMOX500C PO; +ASPI81CH PO; +AUGM875T28 PO; +BACL1TAB9; +BACL1TAB9 PO; +CLAR10CA3 PO; +FERR325T3 PO; +OMEP40CA2 PO; +TRAM50TA2 PO; +TRAZ-136 PO; -TRAZ100T4 PO; +ULTR50TA8 PO; +VITA1CAP40 PO
[2017-05-17 09:49] LABS: BASO % 0.6 % (0.0-1.0); EOS % 0.7 % (0.0-3.0); LYMPH % 31.4 % (24.0-44.0); MEAN CORPUSCULAR HEMOGLOBIN 26.7 pg (27.0-33.0); MEAN CORPUSCULAR HGB CONC 32.4 g/dl (32.0-36.5); MEAN CORPUSCULAR VOLUME 82.3 fl (80.0-96.0); MONO # 0.2 K/mm3 (0.0-0.8); MONO % 4.8 % (0.0-5.0); RED CELL DISTRIBUTION WIDTH 15.4 % (11.5-14.5); WHITE BLOOD COUNT 3.3 K/mm3 (4.0-10.0)
[2017-05-17 10:41] LABS: ALBUMIN 3.6 GM/DL (3.2-5.2); ALBUMIN/GLOBULIN RATIO 1.09 (1.00-1.93); ALKALINE PHOSPHATASE 62 U/L (45-117); ALT/SGPT 16 U/L (12-78); ANION GAP 6 MEQ/L (8-16); AST/SGOT 13 U/L (15-37); BILIRUBIN,TOTAL 0.2 MG/DL (0.2-1.0); BLOOD UREA NITROGEN 11 MG/DL (7-18); CALCIUM LEVEL 8.3 MG/DL (8.5-10.1); CARBON DIOXIDE LEVEL 27 MEQ/L (21-32); CHLORIDE LEVEL 107 MEQ/L (98-107); CHOLESTEROL LEVEL 143 MG/DL (<200); CREATININE FOR GFR 0.68 MG/DL (0.55-1.02); FERRITIN 4 NG/ML (8-252); GLOMERULAR FILTRATION RATE > 60.0 (>60); GLUCOSE, FASTING 72 MG/DL (70-105); POTASSIUM SERUM 4.1 MEQ/L (3.5-5.1); SODIUM LEVEL 140 MEQ/L (136-145); TOTAL PROTEIN 6.9 GM/DL (6.4-8.2); TRIGLYCERIDES LEVEL 64 MG/DL (<150)
== END ==
LOC: M LAB 08:38
PROVIDERS: ATTEND Physician Assistant Medical
DX: E61.1 Iron deficiency (principal); E78.2 Mixed hyperlipidemia; E55.9 Vitamin D deficiency, unspecified

== ENCOUNTER 2017-05-21 11:28 | Emergency (ER) | payer OTHER ==
[~2017-05-21] VITALS: Ht 165.1 cm; Wt 86.4 kg
[2017-05-21 11:28] VITALS: BP 155/91
[~2017-05-21 11:28] MED LIST changes: -ASPI81CH PO; -AUGM875T28 PO; -BACL1TAB9; -BACL1TAB9 PO; -FERR325T3 PO; -OMEP40CA2 PO; -TRAM50TA2 PO; -VITA1CAP40 PO
[2017-05-21] MEDS ORDERED: BACL1TAB9 PO (11:34)
[2017-09-06] MEDS ORDERED: BACL1TAB9 (14:11)
== END 2017-05-21 11:48 | disposition home or self-care (01) ==
LOC: M ED 11:28
DX: H65.02 Acute serous otitis media, left ear (principal); Z88.2 Allergy status to sulfonamides; Z79.899 Other long term (current) drug therapy

== ENCOUNTER 2017-06-06 15:44 | Emergency (ER) | payer OTHER ==
[~2017-06-06] VITALS: Ht 165.1 cm; Wt 86.4 kg
[~2017-06-06 15:44] MED LIST changes: +BACL1TAB9 PO
[2017-06-06] MEDS ORDERED: CLAR10CA3 PO (15:55)
[2017-06-06] MEDS ORDERED: OMEP40CA2 PO (15:55)
[2017-06-06] MEDS ORDERED: TRAM50TA2 PO (15:55)
[2017-06-06] MEDS ORDERED: FERR325T3 PO (15:55)
[2017-06-06] MEDS ORDERED: VITA1CAP40 PO (15:55)
[2017-06-06 17:28] LABS: ALBUMIN 4.3 GM/DL (3.2-5.2); ALBUMIN/GLOBULIN RATIO 1.08 (1.00-1.93); ALKALINE PHOSPHATASE 68 U/L (45-117); ALT/SGPT 14 U/L (12-78); ANION GAP 9 MEQ/L (8-16); AST/SGOT 10 U/L (15-37); BILIRUBIN,TOTAL 0.3 MG/DL (0.2-1.0); BLOOD UREA NITROGEN 12 MG/DL (7-18); CALCIUM LEVEL 9.1 MG/DL (8.5-10.1); CARBON DIOXIDE LEVEL 26 MEQ/L (21-32); CHLORIDE LEVEL 107 MEQ/L (98-107); CREATININE FOR GFR 0.83 MG/DL (0.55-1.02); GLOMERULAR FILTRATION RATE > 60.0 (>60); GLUCOSE, FASTING 89 MG/DL (70-105); POTASSIUM SERUM 3.5 MEQ/L (3.5-5.1); SODIUM LEVEL 142 MEQ/L (136-145); TOTAL PROTEIN 8.3 GM/DL (6.4-8.2)
[2017-06-06 17:35] LABS: BASO % 0.5 % (0.0-1.0); EOS % 0.5 % (0.0-3.0); LARGE UNSTAINED CELL # 0.1 K/mm3 (0.0-0.4); LARGE UNSTAINED CELL % 1.6 % (0.0-4.0); LYMPH # 1.1 K/mm3 (1.5-4.5); LYMPH % 31.3 % (24.0-44.0); MEAN CORPUSCULAR HEMOGLOBIN 26.5 pg (27.0-33.0); MEAN CORPUSCULAR HGB CONC 33.2 g/dl (32.0-36.5); MEAN CORPUSCULAR VOLUME 79.8 fl (80.0-96.0); MONO # 0.2 K/mm3 (0.0-0.8); MONO % 5.6 % (0.0-5.0); NEUTROPHILS % 60.5 % (36.0-66.0); PLATELET COUNT, AUTOMATED 235 k/mm3 (150-450); RED CELL DISTRIBUTION WIDTH 15.1 % (11.5-14.5); WHITE BLOOD COUNT 3.3 K/mm3 (4.0-10.0)
[2017-06-06 17:46] VITALS: BP 119/83
[2017-09-06] MEDS ORDERED: BACL1TAB9 (14:11)
== END 2017-06-06 18:11 | disposition home or self-care (01) ==
LOC: M ED 15:44
DX: D64.9 Anemia, unspecified (principal); R42 Dizziness and giddiness; R53.83 Other fatigue; Z79.899 Other long term (current) drug therapy; Z88.2 Allergy status to sulfonamides; Z88.8 Allergy status to other drugs, medicaments and biological substances

== ENCOUNTER → 2017-06-30 | Outpatient (REF) | payer OTHER ==
[~2017-06-30] MED LIST changes: +ASPI81CH PO; +AUGM875T28 PO; +BACL1TAB9; +FERR325T3 PO; +OMEP40CA2 PO; +TRAM50TA2 PO; +VITA1CAP40 PO
[2017-06-30 14:44] LABS: PERCENT SATURATION 25.3 % (13.2-45.0)
== END ==
LOC: M LAB REF 13:49
PROVIDERS: ATTEND Internal Medicine Medical Oncology
DX: D50.9 Iron deficiency anemia, unspecified (principal)

== ENCOUNTER → 2017-07-05 | Outpatient (CLI) | payer OTHER ==
--- NOTE | 2017-07-14 00:01 | ECWPNPC ---
PATIENT NAME: OBED ANDERSON : 1980 GENDER: FEMALE VISIT DATE: 07/05/2017 DISCHARGE DATE: 07/05/17927 VISIT LOCKED DATE TIME: PHYSICIAN: PREM JONES RESOURCE: PREM JONES REASON FOR APPOINTMENT 1. MRI REVIEW HISTORY OF PRESENT ILLNESS HISTORY OF PRESENT ILLNESS: PAIN THE PATIENT DESCRIBES THE PAIN... FALL RISK SCREENING: SCREENING :NO FALLS IN THE PAST YEAR TODAY'S VISIT: NOTES: RATES PAIN TODAY 6/10. NOTES PAIN IS INTERMITTANT AND SHOOTING. PAIN IS CENTERED ACROSS LOW BACK. USES HEAT, GEL AND MUSCLES RUBS. PAIN WORSE AT THE END OF THE DAY. . CURRENT MEDICATIONS TAKING FERROUS SULFATE 325 (65 FE) MG TABLET 1 TABLET WITH MEAL ORALLY QID TAKING COLACE 100 MG CAPSULE 1 -2 CAPSULES NEEDED ORALLY ONCE A DAY TAKING ACETAMINOPHEN 500 MG CAPSULE 2 CAPSULES NEEDED ORALLY EVERY 6-8 HRS NEEDED FOR PAIN TAKING OMEPRAZOLE 40 MG CAPSULE DELAYED RELEASE 1 CAPSULE BEFORE MEAL ORALLY ONCE A DAY TAKING NATURAL VITAMIN D-3 5000 UNIT TABLET 1 TAB WITH MEAL ORALLY DAILY TAKING TRAZODONE HCL 100 MG TABLET 1 TABLET AT BEDTIME ORALLY ONCE A DAY TAKING TRAMADOL HCL 50 MG TABLET 1 TAB ORALLY TID TAKING LORATADINE 10 MG TABLET 1 TABLET ORALLY ONCE A DAY TAKING BACLOFEN 20 MG TABLET 1 TABLET WITH FOOD OR MILK ORALLY EVERY 8 HRS NOT-TAKING PHYSICAL THERAPY EVALUATE AND TREAT PHYSICAL THERAPY DIRECTED CHRONIC RIGHT SHOULDER PAIN 1-3X/WEEK NOT-TAKING VITAMIN B-12 1000 MCG TABLET SUBLINGUAL 1 TABLET UNDER THE TONGUE AND ALLOW TO DISSOLVE SUBLINGUAL ONCE A DAY NOT-TAKING AMOXICILLIN 500 MG CAPSULE 1 CAPSULE ORALLY 3 TIMES A DAY NOT-TAKING VENOFER 20 MG/ML SOLUTION DIRECTED INTRAVENOUS NOT-TAKING METHOCARBAMOL 500 MG TABLET 2 TABS ORAL EVERY 6 HOURS MEDICATION LIST REVIEWED AND RECONCILED WITH THE PATIENT PAST MEDICAL HISTORY GASTROESOPHAGEAL REFLUX DISEASE, ESOPHAGITIS PRESENCE NOT SPECIFIED IRON DEFICIENCY ANEMIA, UNSPECIFIED IRON DEFICIENCY ANEMIA TYPE STATUS POST BARIATRIC SURGERY PRIMARY INSOMNIA VITAMIN D DEFICIENCY VITAMIN B12 DEFICIENCY ALLERGIES BACTRIM DS: RASH/FEVER: ALLERGY SURGICAL HISTORY GASTRIC BY PASS 2005 C- SECTION X2 2007,2011 HOSPITALIZATION/MAJOR DIAGNOSTIC PROCEDURE SURGERIES LISTED ONLY HOSPITALIZATIONS REVIEW OF SYSTEMS REVIEWED BY: PROVIDER: PREM JONES CANOE INSPECTOR FINAL . CONSTITUTIONAL: ANY CHANGE IN YOUR MEDICAL CONDITION? NO . CHILLS NO . FEVER NO . INFECTION: DO YOU HAVE NEW INFECTIONS? NO . DO YOU HAVE HISTORY OF MRSA? NO . MUSCULOSKELETAL: ANY NEW PATTERNS OF PAIN OR NUMBNESS? NO . GASTROENTEROLOGY: ANY NEW CHANGE IN BOWEL CONTROL? NO . GENITOURINARY: ANY NEW CHANGE IN BLADDER CONTROL? NO . IS THERE A CHANCE YOU COULD BE ? NO . HEMATOLOGY/LYMPH: DO YOU TAKE ANY BLOOD THINNERS? (FOR EXAMPLE- COUMADIN, PLAVIX, AGGRENOX, PLATEL, PRADAXA, OR XARELTO) NO . WHEN WAS YOUR LAST DOSE? DATE: TIME: . NEUROLOGY: HAVE YOU FALLEN IN THE PAST 6 MONTHS? NO . ANY NEW EXTREMITY NUMBNESS OR WEAKNESS? NO . CARDIOLOGY: DO YOU HAVE A PACEMAKER OR DEFIBRILLATOR? NO . RESPIRATORY: HAVE YOU BEEN SICK IN THE PAST WEEK? NO . FEVER NO . FLU LIKE SYMPTOMS? NO . COUGH NO . INTEGUMENTARY: DO YOU HAVE ANY RASHES OR OPEN SORES? YES, OPEN SORES TO FEET 3 WEEKS AGO PT WAS COOKING AND HOT SAUCE SPLATTERED ON TO FEET. PT SAW PCP FOR THIS AND COVERS THEM WITH NEOSPORIN AND BANDAIDS . ALLERGIC/IMMUNO: ARE YOU ALLERGIC TO SHELLFISH OR IV DYE? NO . ANY NEW ALLERGIES? NO . PSYCHIATRIC: DO YOU HAVE THOUGHTS OF HURTING YOURSELF OR SOMEONE ELSE? NO . ARE YOU ABUSED, NEGLECTED, OR IN AN UNSAFE ENVIRONMENT? NO . ENDOCRINOLOGY: ARE YOU DIABETIC? NO . OTHER: DO YOU NEED ANY PRESCRIPTIONS? NO . IF YES, PLEASE LIST: ____ . ANY NEW PROBLEMS WITH YOUR MEDICATIONS? NO . WHEN DID YOU LAST EAT? ____ . WHEN DID YOU LAST DRINK? ____ . WHAT DID YOU LAST DRINK? ____ . NAME OF PERSON DRIVING YOU HOME? ____ . DO YOU HAVE ANY OTHER QUESTIONS OR CONCERNS NO . VITAL SIGNS WT 191 LBS, HT 65 IN, BMI 31.78 INDEX, BP 128/69 MM HG, HR 88 /MIN, RR 18 /MIN, TEMP 98.2 F, OXYGEN SAT % 100%, REVIEWED BY: EM. EXAMINATION GENERAL EXAMINATION: PSYCHALERT , ORIENTED X 3 , APPROPRIATE MOOD AND AFFECT , TALKATIVE. LUNGS:CLEAR TO AUSCULTATION BILATERALLY. HEART:HEART RATE REGULAR, NORMAL S1S2, NO MURMURS, CLICK OR RUBS. MUSCULOSKELETAL:. POINT TENDERNESS OVER LUMBOSACRAL AXIS. POSTURE UPRIGHT. GAIT NONANTALGIC, TRIGGER POINTS:, ELICITED WITH PALPATION OVER LUMBAR PARAVERTEBRAL MUSCLES AND INTO THE SACRUM. TIGHT FIBROUS BANDS ARE IDENTIFIED IN THIS REGION RESTRICTION OF ROM IN THIS AREA. DIAGNOSTIC TESTS REVIEWEDMRI OF LUMBAR SPINE COMPLETED ON 05/04/17 REVIEWED DEGENERATIVE CHANGES /SPONDYLOSIS NOTED. LEFT SIDED NEURAL FORAMINAL NARROWING AT L5-S1. DISC BULGES ARE NOTED AT L4-5 AND L5-S1 AND TO A LESSER EXTENT AT L2.MRI CERVICAL SPINE COMPELETED ON 04/13/17. DEMONSTRATES NORMAL STUDY WITH NO EVIDENCE OF DISC BULGES OR HERNIATION.. ASSESSMENTS MYALGIA - M79.1 (PRIMARY) CERVICALGIA - M54.2 TREATMENT MYALGIA REFILL TRAMADOL HCL TABLET, 50 MG, 1-2 TAB, ORALLY, Q 6 HRS PRN PAIN, 30 DAY(S), 120, REFILLS 1 TRIGGER POINT 3 + PREM RODRIGUEZ 07/05/2017 9:16:19 AM > LOW BACK NOTES: CONTINE EXECISES AND STRETCHES.,TRIGGER POINT INJECTION MATERIAL WAS PRINTED, REVIEWED AND GIVEN TO PT. CLINICAL NOTES: ISTOP REGISTRY REVIEWED AND DEMNOSTRATES COMPLLIANCE. PROCEDURE CODES FA211 ESTABILISHED PATIENT [facility] CHARGE DISPOSITION & COMMUNICATION FOLLOW UP AFTER INJECTION (REASON: CHECK AUTH FOR TPI) ELECTRONICALLY SIGNED BY KALI RAHMAN ON 07/13/2017 AT 11:37 AM EDT DISCLAIMER : THIS IS A VISIT SUMMARY EXTRACTED FROM THE [employer] CHART. IT IS NOT A COPY OF THE [employer] PROGRESS NOTE. CLARISSA
== END ==
LOC: M PAIN 08:30
PROVIDERS: ATTEND Nurse Practitioner Family
DX: G89.29 Other chronic pain (principal); M79.1 Myalgia; M54.2 Cervicalgia; K21.9 Gastro-esophageal reflux disease without esophagitis; D50.9 Iron deficiency anemia, unspecified; G47.00 Insomnia, unspecified; E55.9 Vitamin D deficiency, unspecified; E53.8 Deficiency of other specified B group vitamins; Z79.891 Long term (current) use of opiate analgesic; Z79.899 Other long term (current) drug therapy; Z88.8 Allergy status to other drugs, medicaments and biological substances

== ENCOUNTER 2017-08-20 17:22 | Emergency (ER) | payer OTHER ==
[~2017-08-20] VITALS: Ht 167.6 cm; Wt 88.6 kg
[~2017-08-20 17:22] MED LIST changes: -ASPI81CH PO; -AUGM875T28 PO; -BACL1TAB9
[2017-08-20] MEDS ORDERED: ASPI81CH PO (17:41)
[2017-08-20] MEDS ORDERED: AUGM875T28 PO (20:04)
[2017-08-20] MEDS ORDERED: TRAM50TA2 PO (20:05)
[2017-08-20 20:08] VITALS: BP 130/72
[2017-09-06] MEDS ORDERED: BACL1TAB9 (14:11)
== END 2017-08-20 20:13 | disposition home or self-care (01) ==
LOC: M ED 17:22
DX: J32.9 Chronic sinusitis, unspecified (principal); K08.89 Other specified disorders of teeth and supporting structures; Z79.899 Other long term (current) drug therapy; Z88.2 Allergy status to sulfonamides; Z88.8 Allergy status to other drugs, medicaments and biological substances

== ENCOUNTER → 2017-08-23 | Outpatient (CLI) | payer OTHER ==
[~2017-08-23] MED LIST changes: +ASPI81CH PO; +AUGM875T28 PO; +BACL1TAB9; +BUPIVACAINE HCL 0.25% 10 ML VIAL As Ordered ONE; +BUPIVACAINE HCL 0.25% 30 ML VIAL As Ordered ONE; +TRIAMCINOLONE ACETONIDE SUSP 40 MG/ML VIAL (J3301) As Ordered ONE; +diazePAM 5 MG TAB As Ordered ONE; +oxyCODONE 5MG TAB As Ordered ONE
--- NOTE | 2017-09-05 23:59 | ECWPNPC ---
PATIENT NAME: OBED ANDERSON : 1980 GENDER: FEMALE VISIT DATE: 08/23/2017 DISCHARGE DATE: 08/23/17 1636 VISIT LOCKED DATE TIME: PHYSICIAN: LATONYA ÁLVAREZ RESOURCE: LATONYA ÁLVAREZ REASON FOR APPOINTMENT 1. LOW BACK -TPI HISTORY OF PRESENT ILLNESS HISTORY OF PRESENT ILLNESS: PAIN THE PATIENT DESCRIBES THE PAIN... FALL RISK SCREENING: SCREENING :NO FALLS IN THE PAST YEAR CURRENT MEDICATIONS TAKING FERROUS SULFATE 325 (65 FE) MG TABLET 1 TABLET WITH MEAL ORALLY QID, NOTES: 08-23-17 0800 TAKING COLACE 100 MG CAPSULE 1 -2 CAPSULES NEEDED ORALLY ONCE A DAY, NOTES: NONE NEEDED TAKING ACETAMINOPHEN 500 MG CAPSULE 2 CAPSULES NEEDED ORALLY EVERY 6-8 HRS NEEDED FOR PAIN, NOTES: NONE NEEDED TAKING OMEPRAZOLE 40 MG CAPSULE DELAYED RELEASE 1 CAPSULE BEFORE MEAL ORALLY ONCE A DAY, NOTES: NONE NEEDED TAKING TRAZODONE HCL 100 MG TABLET 1 TABLET AT BEDTIME ORALLY ONCE A DAY, NOTES: 08-22-17 2100 TAKING LORATADINE 10 MG TABLET 1 TABLET ORALLY ONCE A DAY, NOTES: 08-23-17 08 TAKING BACLOFEN 20 MG TABLET 1 TABLET WITH FOOD OR MILK ORALLY EVERY 8 HRS, NOTES: 08-23-17 08 TAKING TRAMADOL HCL 50 MG TABLET 1-2 TAB ORALLY Q 6 HRS PRN PAIN, NOTES: 08-23-17 08 DISCONTINUED NATURAL VITAMIN D-3 5000 UNIT TABLET 1 TAB WITH MEAL ORALLY DAILY DISCONTINUED VITAMIN B-12 1000 MCG TABLET SUBLINGUAL 1 TABLET UNDER THE TONGUE AND ALLOW TO DISSOLVE SUBLINGUAL ONCE A DAY DISCONTINUED AMOXICILLIN 500 MG CAPSULE 1 CAPSULE ORALLY 3 TIMES A DAY DISCONTINUED VENOFER 20 MG/ML SOLUTION DIRECTED INTRAVENOUS DISCONTINUED METHOCARBAMOL 500 MG TABLET 2 TABS ORAL EVERY 6 HOURS UNKNOWN PHYSICAL THERAPY EVALUATE AND TREAT PHYSICAL THERAPY DIRECTED CHRONIC RIGHT SHOULDER PAIN 1-3X/WEEK MEDICATION LIST REVIEWED AND RECONCILED WITH THE PATIENT PAST MEDICAL HISTORY GASTROESOPHAGEAL REFLUX DISEASE, ESOPHAGITIS PRESENCE NOT SPECIFIED IRON DEFICIENCY ANEMIA, UNSPECIFIED IRON DEFICIENCY ANEMIA TYPE STATUS POST BARIATRIC SURGERY PRIMARY INSOMNIA VITAMIN D DEFICIENCY VITAMIN B12 DEFICIENCY ALLERGIES BACTRIM DS: RASH/FEVER: ALLERGY SOCIAL HISTORY GENERAL: TOBACCO USE ARE YOU A:NONSMOKER RECREATIONAL DRUG USE DRUG USE?NO CAFFEINE CAFFEINE USE?NO DIET: NONE. EXERCISE: WALKS DAILY. MARITAL STATUS: . OTHERS AT HOME: MOTHER, SISTER AND CHILDREN. PETS: CAT. JAIN NO PREFERENCE. LANGUAGE MONGOLIAN. EDUCATION GRADUATED HS. PSYCHOLOGICAL HX TREATMENTNO PAIN CLINIC PFS, CLERGY, PUBLIC HEALTH REFERRALS PFS REFERRAL NEEDED?NO CLERGY REFERRAL NEEDED?NO PUBLIC HEALTH REFERRAL NEEDED?NO WAS THE PROVIDER NOTIFIED OF ANY PERTINENT INFO?NO HAS THE PATIENT BEEN EDUCATED REGARDING HIS/HER PLAN OF CARE?YES HAS THE PATIENT BEEN EDUCATED REGARDING PAIN, THE RISK FOR PAIN, THE IMPORTANCE OF EFFECTIVE PAIN MANAGEMENT, AND THE PAIN ASSESSMENT PROCESS?YES PATIENT: ____. ADVANCE DIRECTIVES HEALTH CARE PROXY?NO POWER OF SMUDGER?NO REVIEW OF SYSTEMS REVIEWED BY: PROVIDER: . CONSTITUTIONAL: ANY CHANGE IN YOUR MEDICAL CONDITION? NO . CHILLS NO . FEVER NO . INFECTION: DO YOU HAVE NEW INFECTIONS? NO . DO YOU HAVE HISTORY OF MRSA? NO . MUSCULOSKELETAL: ANY NEW PATTERNS OF PAIN OR NUMBNESS? NO . GASTROENTEROLOGY: ANY NEW CHANGE IN BOWEL CONTROL? NO . GENITOURINARY: ANY NEW CHANGE IN BLADDER CONTROL? NO . IS THERE A CHANCE YOU COULD BE ? NO . HEMATOLOGY/LYMPH: DO YOU TAKE ANY BLOOD THINNERS? (FOR EXAMPLE- COUMADIN, PLAVIX, AGGRENOX, PLATEL, PRADAXA, OR XARELTO) NO . WHEN WAS YOUR LAST DOSE? DATE: TIME: . NEUROLOGY: HAVE YOU FALLEN IN THE PAST 6 MONTHS? NO . ANY NEW EXTREMITY NUMBNESS OR WEAKNESS? NO . CARDIOLOGY: DO YOU HAVE A PACEMAKER OR DEFIBRILLATOR? NO . RESPIRATORY: HAVE YOU BEEN SICK IN THE PAST WEEK? NO . FEVER NO . FLU LIKE SYMPTOMS? NO . COUGH NO . INTEGUMENTARY: DO YOU HAVE ANY RASHES OR OPEN SORES? NO . ALLERGIC/IMMUNO: ARE YOU ALLERGIC TO SHELLFISH OR IV DYE? NO . ANY NEW ALLERGIES? NO . PSYCHIATRIC: DO YOU HAVE THOUGHTS OF HURTING YOURSELF OR SOMEONE ELSE? NO . ARE YOU ABUSED, NEGLECTED, OR IN AN UNSAFE ENVIRONMENT? NO . ENDOCRINOLOGY: ARE YOU DIABETIC? NO . OTHER: DO YOU NEED ANY PRESCRIPTIONS? NO . IF YES, PLEASE LIST: ____ . ANY NEW PROBLEMS WITH YOUR MEDICATIONS? NO . WHEN DID YOU LAST EAT? 08-23-17 0800 . WHEN DID YOU LAST DRINK? 08-23-17 NOON . WHAT DID YOU LAST DRINK? WATER . NAME OF PERSON DRIVING YOU HOME? BRISA . DO YOU HAVE ANY OTHER QUESTIONS OR CONCERNS YES, INQUIRE ABOUT DIFFERENT PAIN MED . VITAL SIGNS WT 195 LBS, HT 65 IN, BMI 32.45 INDEX, BP 125/61 MM HG, HR 71 /MIN, RR 18 /MIN, TEMP 98.0 F, OXYGEN SAT % 100%, NA INITIALS SC 15:02, REVIEWED BY: CM. ASSESSMENTS MYALGIA - M79.1 (PRIMARY) PROCEDURES PN TRIGGER POINT INJECTION WITH STEROIDS PRE PROCEDURE DIAGNOSIS 1. MYALGIA 2. PAIN AT BILATERAL LOWER BACK AREA POST PROCEDURE DIAGNOSIS 1. MYALGIA 2. PAIN AT BILATERAL LOWER BACK AREA PROCEDURE TRIGGER POINT INJECTION AT BILATERAL LOWER BACK AREA SURGEON DR. LATONYA ÁLVAREZ NURSE MIDWIFE/CLINICAL INSTRUCTOR NONE ANESTHESIA LOCAL PRE PROCEDURE NOTE THE PATIENT HAS A HISTORY OF CHRONIC PAIN AT THE RIGHT AND LEFT LOWER BACK AREA. I EVALUATE THE PATIENT AND REVIEWED THE CHART. THERE IS EVIDENCE OF BANDS OF TISSUE WITH RESTRICTION OF MOVEMENT AND PRESENCE OF TRIGGER POINT AT THE AFFECTED AREA. I WENT OVER THE RISKS, ALTERNATIVES, AND BENEFITS ASSOCIATED WITH THIS PROCEDURE. THE PATIENT WOULD LIKE TO PROCEED AND GIVE CONSENT TO PERFORMED THE PROCEDURE. THE PATIENT DENIES UNEXPLAINABLE WEIGHT LOSS, FEVER, CHILLS, OR NEW CHANGES IN URINARY OR BOWEL CONTROL DESCRIPTION OF PROCEDURE THE PATIENT WAS BROUGHT TO THE PROCEDURE ROOM AND PLACED IN THE SITTING POSITION. THE AREA WAS CLEANED WITH ALCOHOL. THE PROCEDURE WAS DONE USING ASEPTIC STERILE TECHNIQUE. I CHECKED LATERALITY AND THE LEVEL WHERE THE PROCEDURE WAS GOING TO BE PERFORMED WITH THE PATIENT AND THE SUPPORTING STAFF AT THE MOMENT OF THE TIME OUT IN THE PROCEDURE ROOM. USING A 25-GAUGE NEEDLE, TRIGGER POINTS WERE INJECTED AT THE RIGHT AND LEFT LOWER BACK AREA WITH A TOTAL OF 40 ML OF BUPIVACAINE 0.25% AND KENALOG 40 MG. THERE WAS NO EVIDENCE OF BLOOD, PARESTHESIA OR CEREBROSPINAL FLUID DURING THE PROCEDURE. THE PATIENT WAS SENT TO THE RECOVERY ROOM. THE PATIENT WAS MOVING THE EXTREMITIES AND DOING WELL. THERE WAS NO COMPLICATION DURING THE PROCEDURE POST PROCEDURE NOTE THE PATIENT WILL BE SEEN IN A FOLLOW UP IN THE NEXT FEW WEEKS. INSTRUCTIONS WERE GIVEN, QUESTIONS WERE ANSWERED, AND THE PATIENT EXPRESSED UNDERSTANDING AND AGREES WITH THE PLAN. I, YOANA HOOKER, DOCUMENTED THE ABOVE INFORMATION ACTING A SCRIBE FOR DR. ÁLVAREZ. I HAVE REVIEWED THE ABOVE DOCUMENT, WRITTEN BY YOANA PIRES AND I VERIFY THAT IT IS ACCURATE PROCEDURE CODES 43103 INJ TRIGGER POINT 11/09 [facility] DISPOSITION & COMMUNICATION FOLLOW UP 3 WEEKS ELECTRONICALLY SIGNED BY LATONYA ÁLVAREZ MD ON 09/05/2017 AT 07:40 PM EDT DISCLAIMER : THIS IS A VISIT SUMMARY EXTRACTED FROM THE [employer] CHART. IT IS NOT A COPY OF THE [employer] PROGRESS NOTE. CLARISSA
== END ==
LOC: M PAIN 15:00
PROVIDERS: ATTEND Anesthesiology
DX: G89.29 Other chronic pain (principal); M54.5 Low back pain; M79.1 Myalgia; K21.9 Gastro-esophageal reflux disease without esophagitis; D50.9 Iron deficiency anemia, unspecified; F51.01 Primary insomnia; E55.9 Vitamin D deficiency, unspecified; Z79.891 Long term (current) use of opiate analgesic; Z79.899 Other long term (current) drug therapy
CPT/HCPCS: 20552; J3301

== ENCOUNTER → 2017-09-20 | Outpatient (CLI) | payer OTHER ==
[~2017-09-20] MED LIST changes: -BUPIVACAINE HCL 0.25% 10 ML VIAL As Ordered ONE; -BUPIVACAINE HCL 0.25% 30 ML VIAL As Ordered ONE; -TRIAMCINOLONE ACETONIDE SUSP 40 MG/ML VIAL (J3301) As Ordered ONE; -diazePAM 5 MG TAB As Ordered ONE; -oxyCODONE 5MG TAB As Ordered ONE
--- NOTE | 2017-10-07 01:12 | ECWPNPC ---
PATIENT NAME: OBED ANDERSON : 1980 GENDER: FEMALE VISIT DATE: 09/20/2017 DISCHARGE DATE: 09/20/17 1530 VISIT LOCKED DATE TIME: PHYSICIAN: PREM JONES RESOURCE: PREM JONES REASON FOR APPOINTMENT 1. POST PROCEDURE/MEDS HISTORY OF PRESENT ILLNESS HISTORY OF PRESENT ILLNESS: PAIN THE PATIENT DESCRIBES THE PAIN... FALL RISK SCREENING: SCREENING :NO FALLS IN THE PAST YEAR TODAY'S VISIT: NOTES: S/P TPI TO LOW BACK COMPLETED ON08/23/17. DID NOTE IMPROVEMENT AFTER INJECTION BUT HAD LEFT SCIATIC PAIN AND HAD TO GO ER. IS STILL HAVING PAIN RADIATING DOWN LEFT LEFT. IS WORKING 2 JOBS AND HAS WALKING AND STANDING MORE. . CURRENT MEDICATIONS TAKING FERROUS SULFATE 325 (65 FE) MG TABLET 1 TABLET WITH MEAL ORALLY QID TAKING COLACE 100 MG CAPSULE 1 -2 CAPSULES NEEDED ORALLY ONCE A DAY TAKING OMEPRAZOLE 40 MG CAPSULE DELAYED RELEASE 1 CAPSULE BEFORE MEAL ORALLY ONCE A DAY TAKING TRAZODONE HCL 100 MG TABLET 1 TABLET AT BEDTIME ORALLY ONCE A DAY TAKING LORATADINE 10 MG TABLET 1 TABLET ORALLY ONCE A DAY TAKING BACLOFEN 20 MG TABLET 1 TABLET WITH FOOD OR MILK ORALLY EVERY 8 HRS NOT-TAKING ACETAMINOPHEN 500 MG CAPSULE 2 CAPSULES NEEDED ORALLY EVERY 6-8 HRS NEEDED FOR PAIN NOT-TAKING VOLTAREN 1 % GEL 2 GRAMS TO AFFECTED AREA OF LOWER BACK TRANSDERMAL Q6 HOURS, NOTES: INSURANCE WONT COVER NOT-TAKING TRAMADOL HCL 50 MG TABLET 1-2 TAB ORALLY Q 6 HRS PRN PAIN MEDICATION LIST REVIEWED AND RECONCILED WITH THE PATIENT PAST MEDICAL HISTORY GASTROESOPHAGEAL REFLUX DISEASE, ESOPHAGITIS PRESENCE NOT SPECIFIED IRON DEFICIENCY ANEMIA, UNSPECIFIED IRON DEFICIENCY ANEMIA TYPE STATUS POST BARIATRIC SURGERY PRIMARY INSOMNIA VITAMIN D DEFICIENCY VITAMIN B12 DEFICIENCY ALLERGIES BACTRIM DS: RASH/FEVER: ALLERGY SURGICAL HISTORY GASTRIC BY PASS 2005 C- SECTION X2 2007,2011 SOCIAL HISTORY GENERAL: TOBACCO USE ARE YOU A:NONSMOKER RECREATIONAL DRUG USE DRUG USE? NO. CAFFEINE CAFFEINE USE? NO . DIET: NONE. EXERCISE: WALKS DAILY. MARITAL STATUS: . OTHERS AT HOME: MOTHER, SISTER AND CHILDREN. PETS: CAT. ORIENTAL ORTHODOX NO PREFERENCE. LANGUAGE PORTUGUESE. EDUCATION GRADUATED HS. LEARNING BARRIERS / SPECIAL NEEDS BARRIERS TO LEARNING?NO READINESS TO LEARN?YES LEARNING PREFERENCES?NO LEARNING CAPABILITIES PRESENT?YES PSYCHOLOGICAL HX TREATMENT NO . PAIN CLINIC PFS, CLERGY, PUBLIC HEALTH REFERRALS PFS REFERRAL NEEDED?NO CLERGY REFERRAL NEEDED?NO PUBLIC HEALTH REFERRAL NEEDED?NO WAS THE PROVIDER NOTIFIED OF ANY PERTINENT INFO?NO HAS THE PATIENT BEEN EDUCATED REGARDING HIS/HER PLAN OF CARE?YES HAS THE PATIENT BEEN EDUCATED REGARDING PAIN, THE RISK FOR PAIN, THE IMPORTANCE OF EFFECTIVE PAIN MANAGEMENT, AND THE PAIN ASSESSMENT PROCESS?YES PATIENT: ____. ADVANCE DIRECTIVES HEALTH CARE PROXY? NO, POWER OF PERSONAL COMPUTER NETWORK ENGINEER? NO. HOSPITALIZATION/MAJOR DIAGNOSTIC PROCEDURE SURGERIES LISTED ONLY HOSPITALIZATIONS REVIEW OF SYSTEMS REVIEWED BY: PROVIDER: . CONSTITUTIONAL: ANY CHANGE IN YOUR MEDICAL CONDITION? NO . CHILLS NO . FEVER NO . INFECTION: DO YOU HAVE NEW INFECTIONS? NO . DO YOU HAVE HISTORY OF MRSA? NO . MUSCULOSKELETAL: ANY NEW PATTERNS OF PAIN OR NUMBNESS? NO . GASTROENTEROLOGY: ANY NEW CHANGE IN BOWEL CONTROL? NO . GENITOURINARY: ANY NEW CHANGE IN BLADDER CONTROL? NO . IS THERE A CHANCE YOU COULD BE ? NO . HEMATOLOGY/LYMPH: DO YOU TAKE ANY BLOOD THINNERS? (FOR EXAMPLE- COUMADIN, PLAVIX, AGGRENOX, PLATEL, PRADAXA, OR XARELTO) NO . WHEN WAS YOUR LAST DOSE? DATE: TIME: . NEUROLOGY: HAVE YOU FALLEN IN THE PAST 6 MONTHS? NO . ANY NEW EXTREMITY NUMBNESS OR WEAKNESS? NO . CARDIOLOGY: DO YOU HAVE A PACEMAKER OR DEFIBRILLATOR? NO . RESPIRATORY: HAVE YOU BEEN SICK IN THE PAST WEEK? NO . FEVER NO . FLU LIKE SYMPTOMS? NO . COUGH NO . INTEGUMENTARY: DO YOU HAVE ANY RASHES OR OPEN SORES? NO . ALLERGIC/IMMUNO: ARE YOU ALLERGIC TO SHELLFISH OR IV DYE? NO . ANY NEW ALLERGIES? NO . PSYCHIATRIC: DO YOU HAVE THOUGHTS OF HURTING YOURSELF OR SOMEONE ELSE? NO . ARE YOU ABUSED, NEGLECTED, OR IN AN UNSAFE ENVIRONMENT? NO . ENDOCRINOLOGY: ARE YOU DIABETIC? NO . OTHER: DO YOU NEED ANY PRESCRIPTIONS? YES . IF YES, PLEASE LIST: BACLOFEN, TRAMADOL . ANY NEW PROBLEMS WITH YOUR MEDICATIONS? NO . WHEN DID YOU LAST EAT? ____ . WHEN DID YOU LAST DRINK? ____ . WHAT DID YOU LAST DRINK? ____ . NAME OF PERSON DRIVING YOU HOME? ____ . DO YOU HAVE ANY OTHER QUESTIONS OR CONCERNS NO . VITAL SIGNS WT 195 LBS, HT 65 IN, BMI 32.45 INDEX, BP 117/66 MM HG, HR 78 /MIN, RR 18 /MIN, TEMP 97 F, OXYGEN SAT % 98, REVIEWED BY: NL. ASSESSMENTS MYALGIA - M79.1 (PRIMARY) TREATMENT MYALGIA START TIZANIDINE HCL TABLET, 4 MG, 1/2 TO 1 TAB, ORALLY, THREE TIMES A DAY, 30 DAY(S), 90, REFILLS 1 REFILL TRAMADOL HCL TABLET, 50 MG, 1-2 TAB, ORALLY, Q 6 HRS PRN PAIN, 30 DAY(S), 120, REFILLS 1 INJECTION ANESTHETIC SACROILIAC JOINTPREM JONES 09/20/2017 3:18:02 PM > LEFT NOTES: ICE AND HEAT TO LOW BACK. PROCEDURE CODES FA211 ESTABILISHED PATIENT [facility] CHARGE DISPOSITION & COMMUNICATION FOLLOW UP AFTER INJECTION (REASON: CHECK AUTH FOR LEFT SIJ INJECTION) ELECTRONICALLY SIGNED BY KALI RAHMAN ON 10/05/2017 AT 08:48 AM EST DISCLAIMER : THIS IS A VISIT SUMMARY EXTRACTED FROM THE [employer] CHART. IT IS NOT A COPY OF THE [employer] PROGRESS NOTE. CLARISSA
== END ==
LOC: M PAIN 14:00
PROVIDERS: ATTEND Nurse Practitioner Family
DX: G89.29 Other chronic pain (principal); M79.1 Myalgia; K21.9 Gastro-esophageal reflux disease without esophagitis; D50.9 Iron deficiency anemia, unspecified; Z98.84 Bariatric surgery status; G47.00 Insomnia, unspecified; E55.9 Vitamin D deficiency, unspecified; E53.8 Deficiency of other specified B group vitamins; Z79.899 Other long term (current) drug therapy; Z88.1 Allergy status to other antibiotic agents

== ENCOUNTER → 2017-10-27 | Outpatient (CLI) | payer OTHER ==
[~2017-10-27] MED LIST changes: -AMOX500C PO; -ASPI81CH PO; -AUGM875T28 PO; -BACL10TA2 PO; -BACL1TAB9; -BACL1TAB9 PO; +BUPIVACAINE HCL 0.25% 30 ML VIAL As Ordered; -CLAR10CA3 PO; -CYCL10TA PO; -FERR325T3 PO; -IRONTAB3 PO; +ISOVUE-M 300 61% 15ML VIAL (Q9967) As Ordered; +LIDOCAINE 1% SDV INJ 30 ML VIAL As Ordered; -NORCOTAB PO; -OMEP40CA2 PO; -PRED20TA PO; -PREV30TA OR; -TRAM50TA2 PO; -TRAZ-136 PO; +TRIAMCINOLONE ACETONIDE SUSP 40 MG/ML VIAL (J3301) As Ordered; -TYLE325T5 PO; -ULTR50TA8 PO; -VITA1CAP40 PO; -[UNRECOGNIZED DRUG - OTHER]; -[UNRECOGNIZED DRUG - REMARK] PO; +diazePAM 5 MG TAB As Ordered; +oxyCODONE 5MG TAB As Ordered
== END ==
LOC: M PAIN 10:15
DX: G89.29 Other chronic pain (principal); M46.1 Sacroiliitis, not elsewhere classified; M53.88 Other specified dorsopathies, sacral and sacrococcygeal region; K21.9 Gastro-esophageal reflux disease without esophagitis; G47.00 Insomnia, unspecified; Z88.1 Allergy status to other antibiotic agents; Z79.891 Long term (current) use of opiate analgesic; Z79.899 Other long term (current) drug therapy; Z98.84 Bariatric surgery status
CPT/HCPCS: J3301

== ENCOUNTER → 2017-12-06 | Outpatient (CLI) | payer OTHER | LOC: M PAIN 10:15 | DX: M25.511 Pain in right shoulder (principal); M79.1 Myalgia; M54.2 Cervicalgia; G89.29 Other chronic pain; K21.9 Gastro-esophageal reflux disease without esophagitis; E55.9 Vitamin D deficiency, unspecified; D50.9 Iron deficiency anemia, unspecified; Z79.899 Other long term (current) drug therapy; Z98.84 Bariatric surgery status; Z88.1 Allergy status to other antibiotic agents | CPT/HCPCS: G0463 ==

== ENCOUNTER → 2017-12-20 | Outpatient (CLI) | payer OTHER ==
[2017-12-20 08:28] LABS: ALBUMIN 3.9 GM/DL (3.2-5.2); ALBUMIN/GLOBULIN RATIO 1.08 (1.00-1.93); ALKALINE PHOSPHATASE 83 U/L (45-117); ALT/SGPT 20 U/L (12-78); ANION GAP 7 MEQ/L (8-16); AST/SGOT 16 U/L (7-37); BILIRUBIN,TOTAL 0.3 MG/DL (0.2-1.0); BLOOD UREA NITROGEN 10 MG/DL (7-18); CALCIUM LEVEL 8.6 MG/DL (8.5-10.1); CARBON DIOXIDE LEVEL 29 MEQ/L (21-32); CHLORIDE LEVEL 105 MEQ/L (98-107); CHOLESTEROL LEVEL 211 MG/DL (<200); CHOLESTEROL RISK RATIO 3.767 (<5); CREATININE FOR GFR 0.75 MG/DL (0.55-1.30); GLOMERULAR FILTRATION RATE > 60.0 (>60); GLUCOSE, FASTING 80 MG/DL (70-100); HDL CHOLESTEROL 56 MG/DL (>40); LDL CHOLESTEROL 129.2 MG/DL (<100); NON-HDL-C 155 MG/DL; POTASSIUM SERUM 4.1 MEQ/L (3.5-5.1); SODIUM LEVEL 141 MEQ/L (136-145); TOTAL PROTEIN 7.5 GM/DL (6.4-8.2); TRIGLYCERIDES LEVEL 129 MG/DL (<150)
[2017-12-20 09:43] LABS: TOTAL 25(OH) VITAMIN D 20.3 NG/ML (30.0-100.0)
== END ==
LOC: M LAB 07:09
DX: E78.2 Mixed hyperlipidemia (principal)
CPT/HCPCS: 80053

== ENCOUNTER → 2017-12-20 | Outpatient (CLI) | payer OTHER | LOC: M RAD 07:13 | DX: M25.511 Pain in right shoulder (principal); M79.621 Pain in right upper arm | CPT/HCPCS: 73030 ==

== ENCOUNTER → 2017-12-24 | Outpatient (CLI) | payer OTHER ==
[~2017-12-24] MED LIST changes: +BUPIVACAINE HCL 0.25% 10 ML VIAL As Ordered; -ISOVUE-M 300 61% 15ML VIAL (Q9967) As Ordered; -LIDOCAINE 1% SDV INJ 30 ML VIAL As Ordered
== END ==
LOC: M PAIN 09:45
DX: G89.29 Other chronic pain (principal); M54.2 Cervicalgia; M25.511 Pain in right shoulder; M79.1 Myalgia; K21.9 Gastro-esophageal reflux disease without esophagitis; G47.00 Insomnia, unspecified; Z79.891 Long term (current) use of opiate analgesic; Z79.899 Other long term (current) drug therapy; Z88.1 Allergy status to other antibiotic agents; Z98.84 Bariatric surgery status
CPT/HCPCS: J3301

== ENCOUNTER → 2018-01-11 | Outpatient (REF) | payer OTHER ==
[2018-01-11 18:45] LABS: FERRITIN 6 NG/ML (8-252); IRON (FE) 106 UG/DL (50-170); PERCENT SATURATION 19.2 % (13.2-45.0); TOTAL IRON BINDING CAPACITY 552 UG/DL (250-450)
== END ==
LOC: M LAB REF 17:34
DX: D64.9 Anemia, unspecified (principal)

== ENCOUNTER 2018-02-18 13:13 | Outpatient (RCR) | payer OTHER | END 2018-03-07 | LOC: M PT 13:13 | DX: Z51.89 Encounter for other specified aftercare (principal); M54.2 Cervicalgia; M79.1 Myalgia; M25.511 Pain in right shoulder ==

== ENCOUNTER → 2018-02-28 | Outpatient (CLI) | payer OTHER | LOC: M PAIN 11:15 | DX: M79.1 Myalgia (principal); M54.2 Cervicalgia; M25.511 Pain in right shoulder; K21.9 Gastro-esophageal reflux disease without esophagitis; G47.00 Insomnia, unspecified; Z79.891 Long term (current) use of opiate analgesic; Z79.899 Other long term (current) drug therapy; Z88.1 Allergy status to other antibiotic agents | CPT/HCPCS: G0463 ==

== ENCOUNTER → 2018-03-24 | Outpatient (REF) | payer OTHER, MEDICAID ==
[2018-03-24 14:10] LABS: HEMATOCRIT 38.4 % (36.0-47.0); HEMOGLOBIN 12.1 g/dl (12.0-15.5); IMMATURE GRANULOCYTE % 0.3 % (0-3.0); LYMPH # 1.4 10^3/uL (1.5-4.5); LYMPH % 36.6 % (24.0-44.0); MEAN CORPUSCULAR HEMOGLOBIN 27.1 pg (27.0-33.0); MEAN CORPUSCULAR HGB CONC 31.5 g/dl (32.0-36.5); MEAN CORPUSCULAR VOLUME 85.9 fl (80.0-96.0); MONO # 0.3 10^3/uL (0.0-0.8); MONO % 7.3 % (0.0-5.0); NEUTROPHILS # 2.1 10^3/uL (1.8-7.7); NEUTROPHILS % 53.8 % (36.0-66.0); PLATELET COUNT, AUTOMATED 291 10^3/uL (150-450); RED BLOOD COUNT 4.47 10^6/uL (4.00-5.40); RED CELL DISTRIBUTION WIDTH 13.7 % (11.5-14.5); WHITE BLOOD COUNT 3.8 10^3/uL (4.0-10.0)
[2018-03-24 14:17] LABS: ESTIMATED AVERAGE GLUCOSE 88 MG/DL (60-110); HEMOGLOBIN A1c 4.7 %
[2018-03-24 14:18] LABS: FOLATE 8.4 NG/ML; TOTAL 25(OH) VITAMIN D 16.4 NG/ML (30.0-100.0); VITAMIN B12 LEVEL 303 PG/ML
[2018-03-24 14:26] LABS: ALBUMIN 4.1 GM/DL (3.2-5.2); ALBUMIN/GLOBULIN RATIO 1.11 (1.00-1.93); ALKALINE PHOSPHATASE 97 U/L (45-117); ALT/SGPT 27 U/L (12-78); ANION GAP 4 MEQ/L (8-16); AST/SGOT 19 U/L (7-37); BILIRUBIN,TOTAL 0.4 MG/DL (0.2-1.0); BLOOD UREA NITROGEN 8 MG/DL (7-18); CALCIUM LEVEL 8.9 MG/DL (8.5-10.1); CARBON DIOXIDE LEVEL 30 MEQ/L (21-32); CHLORIDE LEVEL 108 MEQ/L (98-107); CHOLESTEROL LEVEL 176 MG/DL (<200); CHOLESTEROL RISK RATIO 2.514 (<5); CREATININE FOR GFR 0.67 MG/DL (0.55-1.30); FERRITIN 5 NG/ML (8-252); GLOMERULAR FILTRATION RATE > 60.0 (>60); GLUCOSE, FASTING 81 MG/DL (70-100); HDL CHOLESTEROL 70 MG/DL (>40); IRON (FE) 56 UG/DL (50-170); LDL CHOLESTEROL 89.8 MG/DL (<100); NON-HDL-C 106 MG/DL; POTASSIUM SERUM 4.5 MEQ/L (3.5-5.1); SODIUM LEVEL 142 MEQ/L (136-145); THYROID STIMULATING HORMONE 0.666 uIU/ML (0.358-3.740); TOTAL PROTEIN 7.8 GM/DL (6.4-8.2); TRIGLYCERIDES LEVEL 81 MG/DL (<150)
[2018-03-24 15:08] LABS: CHLAMYDIA DNA AMPLIFICATION NEGATIVE (NEGATIVE); GC DNA AMPLIFICATION NEGATIVE (NEGATIVE)
[2018-03-29 00:07] LABS: VITAMIN B1 LEVEL WHOLE BLOOD 23.8 nmol/L (66.5-200.0)
== END ==
LOC: M LAB REF 11:57
DX: R53.83 Other fatigue (principal); Z13.29 Encounter for screening for other suspected endocrine disorder; D50.9 Iron deficiency anemia, unspecified; E55.9 Vitamin D deficiency, unspecified; Z11.3 Encounter for screening for infections with a predominantly sexual mode of transmission
CPT/HCPCS: 82746

== ENCOUNTER → 2018-06-03 | Outpatient (CLI) | payer OTHER | LOC: M PAIN 13:45 | DX: M79.1 Myalgia (principal); K21.9 Gastro-esophageal reflux disease without esophagitis; G47.00 Insomnia, unspecified; E55.9 Vitamin D deficiency, unspecified; Z79.891 Long term (current) use of opiate analgesic; Z79.899 Other long term (current) drug therapy; Z88.1 Allergy status to other antibiotic agents; Z98.84 Bariatric surgery status | CPT/HCPCS: J3301 ==

== ENCOUNTER → 2018-06-17 | Outpatient (CLI) | payer OTHER | LOC: M PAIN 09:30 | DX: M79.1 Myalgia (principal); K21.9 Gastro-esophageal reflux disease without esophagitis; D50.9 Iron deficiency anemia, unspecified; E55.9 Vitamin D deficiency, unspecified; Z98.84 Bariatric surgery status; Z79.899 Other long term (current) drug therapy; Z88.8 Allergy status to other drugs, medicaments and biological substances | CPT/HCPCS: G0463 ==

== ENCOUNTER 2018-07-13 12:09 | Emergency (ER) | payer OTHER | END 2018-07-13 15:30 | disposition left against medical advice (07) | LOC: M ED 12:09 | DX: Z53.21 Procedure and treatment not carried out due to patient leaving prior to being seen by health care provider (principal) ==

== ENCOUNTER 2018-07-16 15:56 | Inpatient (IN) | payer OTHER ==
[2018-07-16] MEDS: NS 1,000 ML IV ×2 (17:15→19:56)
[2018-07-16 17:30] LABS: HEMOGLOBIN 11.7 g/dl (12.0-15.5); MEAN CORPUSCULAR HEMOGLOBIN 25.9 pg (27.0-33.0); MEAN CORPUSCULAR HGB CONC 31.6 g/dl (32.0-36.5); PLATELET COUNT, AUTOMATED 400 10^3/uL (150-450); RED BLOOD COUNT 4.51 10^6/uL (4.00-5.40); RED CELL DISTRIBUTION WIDTH 16.5 % (11.5-14.5); WHITE BLOOD COUNT 10.7 10^3/uL (4.0-10.0)
[2018-07-16 17:34] LABS: CONTROL LINE HCG INT CTR LINE PRESENT; HCG, SERUM QUALITATIVE NEGATIVE (NEGATIVE)
[2018-07-16 17:43] LABS: ALBUMIN 4.6 GM/DL (3.2-5.2); ALBUMIN/GLOBULIN RATIO 1.28 (1.00-1.93); ALKALINE PHOSPHATASE 82 U/L (45-117); ALT/SGPT 20 U/L (12-78); ANION GAP 16 MEQ/L (8-16); AST/SGOT 32 U/L (7-37); BILIRUBIN,DIRECT 0.1 MG/DL (0.0-0.2); BILIRUBIN,TOTAL 0.6 MG/DL (0.2-1.0); BLOOD UREA NITROGEN 17 MG/DL (7-18); CALCIUM LEVEL 9.4 MG/DL (8.5-10.1); CARBON DIOXIDE LEVEL 22 MEQ/L (21-32); CHLORIDE LEVEL 101 MEQ/L (98-107); CPK CREATINE PHOSPHOKINASE 209 U/L (26-192); CREATININE FOR GFR 1.48 MG/DL (0.55-1.30); ETHYL ALCOHOL (ETHANOL) < 0.003 % (0.000-0.010); GLOMERULAR FILTRATION RATE 42.2 (>60); GLUCOSE, FASTING 83 MG/DL (70-100); POTASSIUM SERUM 3.6 MEQ/L (3.5-5.1); SALICYLATE LEVEL < 1.7 MG/DL (5.0-30.0); SODIUM LEVEL 139 MEQ/L (136-145); TOTAL PROTEIN 8.2 GM/DL (6.4-8.2); TROPONIN I < 0.02 NG/ML (< 0.10)
[2018-07-16 17:49] LABS: CK-MB VALUE MASS 5.2 NG/ML (<3.6); MB/CK RELATIVE INDEX 2.48 (< OR =4); THYROID STIMULATING HORMONE 0.103 uIU/ML (0.358-3.740)
[2018-07-16 17:52] LABS: ACETAMINOPHEN LEVEL < 2.0 UG/ML (10.0-30.0)
[2018-07-16] MEDS: BACLOFEN 10 MG TAB PO (17:53)
[2018-07-16] MEDS: LORazepam 2 MG/ML VIAL (J2060) IV ×5 (17:54→19:53)
[2018-07-16] MEDS: diphenhydrAMINE INJ 50MG/ML VIAL (J1200) IV (19:32)
[2018-07-16] MEDS ORDERED: ACETAMINOPHEN TAB 650MG DOSE (2X325MG) PO (19:45)
[2018-07-16] MEDS ORDERED: LORazepam 2 MG/ML VIAL (J2060) IV (19:45)
[2018-07-16] MEDS ORDERED: OLANZapine INTRAMUSCULAR 10 MG VIAL (S0166) IM (20:30)
[2018-07-16] MEDS ORDERED: MIDAZOLAM INJ 2 MG/2 ML VIAL (J2250) As Ordered ×3 (20:35→21:45)
[2018-07-16] MEDS ORDERED: PROPOFOL 1,000 MG/100 ML VIAL As Ordered (20:41)
[2018-07-16] MEDS: PROPOFOL 1,000 MG in APPROPRIATE DILUENT 1 EA IV ×2 (20:56→23:36)
[2018-07-16] MEDS ORDERED: MORPHINE 4 MG/ML 1ML VIAL/SYRINGE (J2270) IV (21:30)
[2018-07-16 21:37] LABS: ABG BASE EXCESS -3.6 (-2.0-2.0); ABG HCO3 19.5 MEQ/L (22.0-26.0); ABG O2 SATURATION 99.3 % (95.0-99.0); ABG PARTIAL PRESSURE CO2 29.2 mmHg (35.0-45.0); ABG PARTIAL PRESSURE O2 168.8 mmHg (75.0-100.0); ABG STANDARD HCO3 21.5 MEQ/L (22.0-26.0); ABG TOTAL CO2 20.4 MEQ/L (22.0-29.0); ABG pH (ARTERIAL) 7.442 UNITS (7.350-7.450)
[2018-07-16] MEDS: MIDAZOLAM INJ 2 MG/2 ML VIAL (J2250) IV ×3 (21:45→22:30)
[2018-07-16 21:58] LABS: AMPHETAMINES LEVEL URINE NEGATIVE (NEGATIVE); BARBITURATES URINE NEGATIVE (NEGATIVE); BENZODIAZEPINES URINE POSITIVE (NEGATIVE); CANNABINOIDS URINE NEGATIVE (NEGATIVE); COCAINE METABOLITE URINE NEGATIVE (NEGATIVE); METHADONE URINE NEGATIVE (NEGATIVE); OPIATES URINE POSITIVE (NEGATIVE); PHENCYCLIDINE URINE NEGATIVE (NEGATIVE)
[2018-07-16] MEDS ORDERED: BACLOFEN 10 MG TAB PO (22:00)
[2018-07-17] MEDS: PROPOFOL 1,000 MG in APPROPRIATE DILUENT 1 EA IV ×3 (02:49→08:13)
[2018-07-17 04:35] LABS: BASO % 0.2 % (0.0-1.0); HEMATOCRIT 31.7 % (36.0-47.0); HEMOGLOBIN 9.9 g/dl (12.0-15.5); IMMATURE GRANULOCYTE % 0.5 % (0-3.0); LYMPH # 0.8 10^3/uL (1.5-4.5); LYMPH % 7.5 % (24.0-44.0); MEAN CORPUSCULAR HEMOGLOBIN 26.1 pg (27.0-33.0); MEAN CORPUSCULAR HGB CONC 31.2 g/dl (32.0-36.5); MEAN CORPUSCULAR VOLUME 83.4 fl (80.0-96.0); MONO # 0.5 10^3/uL (0.0-0.8); MONO % 4.5 % (0.0-5.0); NEUTROPHILS # 8.7 10^3/uL (1.8-7.7); NEUTROPHILS % 87.3 % (36.0-66.0); RED CELL DISTRIBUTION WIDTH 16.7 % (11.5-14.5)
[2018-07-17 04:41] LABS: PLATELET COUNT, AUTOMATED 290 10^3/uL (150-450)
[2018-07-17 04:49] LABS: ANION GAP 13 MEQ/L (8-16); BLOOD UREA NITROGEN 16 MG/DL (7-18); CALCIUM LEVEL 8.5 MG/DL (8.5-10.1); CARBON DIOXIDE LEVEL 20 MEQ/L (21-32); CHLORIDE LEVEL 109 MEQ/L (98-107); CREATININE FOR GFR 0.91 MG/DL (0.55-1.30); GLOMERULAR FILTRATION RATE > 60.0 (>60); GLUCOSE, FASTING 87 MG/DL (70-100); POTASSIUM SERUM 3.2 MEQ/L (3.5-5.1); SODIUM LEVEL 142 MEQ/L (136-145)
[2018-07-17] MEDS: MIDAZOLAM INJ 2 MG/2 ML VIAL (J2250) IV ×2 (04:53→07:57)
[2018-07-17 06:14] LABS: ABG BASE EXCESS -3.2 (-2.0-2.0); ABG HCO3 20.3 MEQ/L (22.0-26.0); ABG O2 SATURATION 99.5 % (95.0-99.0); ABG PARTIAL PRESSURE O2 197.9 mmHg (75.0-100.0); ABG STANDARD HCO3 21.9 MEQ/L (22.0-26.0); ABG TOTAL CO2 21.3 MEQ/L (22.0-29.0); ABG pH (ARTERIAL) 7.434 UNITS (7.350-7.450)
[2018-07-17] MEDS: IPRATROPIUM 0.5MG/ALBUTEROL 2.5MG INH SOL UD 3ML (DUONEB)(J7620) NEB (07:53)
[2018-07-17] MEDS: CHLORHEXIDINE ORAL RINSE 0.12%/15ML 120ML BOTTLE MT (08:41)
[2018-07-17] MEDS: ENOXAPARIN 40 MG/0.4 ML SYRINGE (J1650) SC (08:41)
[2018-07-17] MEDS ORDERED: PILL CRUSHER/CUTTER 1 EACH XX (08:45)
[2018-07-17] MEDS: THIAMINE 100 MG TAB PO (10:30)
[2018-07-17] MEDS: POTASSIUM CHLORIDE 10 MEQ SR TABLET PO (10:30)
[2018-07-18 07:32] LABS: BASO % 0.4 % (0.0-1.0); EOS % 0.4 % (0.0-3.0); HEMATOCRIT 31.3 % (36.0-47.0); IMMATURE GRANULOCYTE % 0.4 % (0-3.0); LYMPH # 1.1 10^3/uL (1.5-4.5); MEAN CORPUSCULAR HEMOGLOBIN 25.9 pg (27.0-33.0); MEAN CORPUSCULAR HGB CONC 31.9 g/dl (32.0-36.5); MEAN CORPUSCULAR VOLUME 81.1 fl (80.0-96.0); MONO # 0.4 10^3/uL (0.0-0.8); MONO % 7.9 % (0.0-5.0); NEUTROPHILS # 3.8 10^3/uL (1.8-7.7); NEUTROPHILS % 70.9 % (36.0-66.0); PLATELET COUNT, AUTOMATED 254 10^3/uL (150-450); RED BLOOD COUNT 3.86 10^6/uL (4.00-5.40); WHITE BLOOD COUNT 5.4 10^3/uL (4.0-10.0)
[2018-07-18 07:40] LABS: ANION GAP 9 MEQ/L (8-16); BLOOD UREA NITROGEN 8 MG/DL (7-18); CALCIUM LEVEL 8.3 MG/DL (8.5-10.1); CARBON DIOXIDE LEVEL 25 MEQ/L (21-32); CHLORIDE LEVEL 109 MEQ/L (98-107); CREATININE FOR GFR 0.57 MG/DL (0.55-1.30); GLOMERULAR FILTRATION RATE > 60.0 (>60); GLUCOSE, FASTING 88 MG/DL (70-100); POTASSIUM SERUM 2.9 MEQ/L (3.5-5.1); SODIUM LEVEL 143 MEQ/L (136-145)
[2018-07-18] MEDS: VITAMIN D 50,000 UNITS CAPSULE (ERGOCALCIFEROL 1.25MG) PO (08:46)
[2018-07-18] MEDS: THIAMINE 100 MG TAB PO (08:46)
[2018-07-18] MEDS: POTASSIUM CHLORIDE 10 MEQ SR TABLET PO (08:46)
[2018-07-18] MEDS: KCL 10MEQ/100ML SWI (KRUN) 10 MEQ in APPROPRIATE DILUENT 1 EA IV ×4 (08:46→12:01)
[2018-07-18] MEDS ORDERED: PROPOFOL 200 MG/20 ML VIAL (11:23)
[2018-07-18] MEDS ORDERED: ROCURONIUM BROMIDE 50 MG/5 ML VIAL (11:23)
[2018-07-18 20:04] LABS: POTASSIUM SERUM 3.7 MEQ/L (3.5-5.1)
[2018-07-19 06:16] LABS: BASO % 0.6 % (0.0-1.0); EOS # 0.1 10^3/uL (0.0-0.50); EOS % 1.3 % (0.0-3.0); HEMATOCRIT 31.5 % (36.0-47.0); HEMOGLOBIN 10.2 g/dl (12.0-15.5); IMMATURE GRANULOCYTE % 0.4 % (0-3.0); LYMPH % 14.1 % (24.0-44.0); MEAN CORPUSCULAR HEMOGLOBIN 26.4 pg (27.0-33.0); MEAN CORPUSCULAR HGB CONC 32.4 g/dl (32.0-36.5); MEAN CORPUSCULAR VOLUME 81.6 fl (80.0-96.0); MONO # 0.4 10^3/uL (0.0-0.8); MONO % 6.1 % (0.0-5.0); NEUTROPHILS # 5.2 10^3/uL (1.8-7.7); NEUTROPHILS % 77.5 % (36.0-66.0); PLATELET COUNT, AUTOMATED 233 10^3/uL (150-450); RED BLOOD COUNT 3.86 10^6/uL (4.00-5.40); RED CELL DISTRIBUTION WIDTH 16.7 % (11.5-14.5); WHITE BLOOD COUNT 6.8 10^3/uL (4.0-10.0)
[2018-07-19 06:37] LABS: ANION GAP 8 MEQ/L (8-16); BLOOD UREA NITROGEN 8 MG/DL (7-18); CALCIUM LEVEL 8.4 MG/DL (8.5-10.1); CARBON DIOXIDE LEVEL 28 MEQ/L (21-32); CHLORIDE LEVEL 107 MEQ/L (98-107); CREATININE FOR GFR 0.56 MG/DL (0.55-1.30); GLOMERULAR FILTRATION RATE > 60.0 (>60); GLUCOSE, FASTING 89 MG/DL (70-100); POTASSIUM SERUM 3.4 MEQ/L (3.5-5.1); SODIUM LEVEL 143 MEQ/L (136-145)
[2018-07-19] MEDS: THIAMINE 100 MG TAB PO (08:42)
[2018-07-19] MEDS: POTASSIUM CHLORIDE 10 MEQ SR TABLET PO (08:43)
[2018-07-19] MEDS: traMADol 50 MG TAB PO (19:18)
[2018-07-19] MEDS: RAMELTEON 8 MG TAB (ROZEREM) PO (21:19)
[2018-07-20 06:46] LABS: HEMATOCRIT 31.9 % (36.0-47.0); MEAN CORPUSCULAR HEMOGLOBIN 26.2 pg (27.0-33.0); MEAN CORPUSCULAR HGB CONC 31.3 g/dl (32.0-36.5); MEAN CORPUSCULAR VOLUME 83.5 fl (80.0-96.0); PLATELET COUNT, AUTOMATED 224 10^3/uL (150-450); RED BLOOD COUNT 3.82 10^6/uL (4.00-5.40); RED CELL DISTRIBUTION WIDTH 16.6 % (11.5-14.5); WHITE BLOOD COUNT 5.7 10^3/uL (4.0-10.0)
[2018-07-20 07:11] LABS: ANION GAP 6 MEQ/L (8-16); BLOOD UREA NITROGEN 7 MG/DL (7-18); CALCIUM LEVEL 8.4 MG/DL (8.5-10.1); CARBON DIOXIDE LEVEL 29 MEQ/L (21-32); CHLORIDE LEVEL 107 MEQ/L (98-107); CREATININE FOR GFR 0.57 MG/DL (0.55-1.30); GLOMERULAR FILTRATION RATE > 60.0 (>60); GLUCOSE, FASTING 86 MG/DL (70-100); POTASSIUM SERUM 3.5 MEQ/L (3.5-5.1); SODIUM LEVEL 142 MEQ/L (136-145)
[2018-07-20] MEDS: THIAMINE 100 MG TAB PO (08:26)
== END 2018-07-20 11:29 | disposition home or self-care (01) | DRG 776 ==
LOC: M MSPAV 07-17 19:51 → M ED 15:56 → M ED INP 19:40 → M ICU 21:43
PROC: 0BH17EZ Insertion of Endotracheal Airway into Trachea, Via Natural or Artificial Opening (ICD-10-PCS; principal; 2018-07-16)
PROC: 5A1935Z Respiratory Ventilation, Less than 24 Consecutive Hours (ICD-10-PCS; 2018-07-16)
DX: F13.230 Sedative, hypnotic or anxiolytic dependence with withdrawal, uncomplicated (principal); J96.90 Respiratory failure, unspecified, unspecified whether with hypoxia or hypercapnia; G93.40 Encephalopathy, unspecified; N17.9 Acute kidney failure, unspecified; M54.5 Low back pain; E86.0 Dehydration; M54.2 Cervicalgia; K21.9 Gastro-esophageal reflux disease without esophagitis; E87.6 Hypokalemia; D50.9 Iron deficiency anemia, unspecified; T42.8X6A Underdosing of antiparkinsonism drugs and other central muscle-tone depressants, initial encounter; Z88.2 Allergy status to sulfonamides; Z79.82 Long term (current) use of aspirin; Z91.128 Patient's intentional underdosing of medication regimen for other reason; Z98.84 Bariatric surgery status; Z79.891 Long term (current) use of opiate analgesic; Z79.899 Other long term (current) drug therapy

== ENCOUNTER → 2018-08-09 | Outpatient (CLI) | payer OTHER | LOC: M PAIN 14:00 | DX: M79.12 Myalgia of auxiliary muscles, head and neck (principal); M54.5 Low back pain; K21.9 Gastro-esophageal reflux disease without esophagitis; E55.9 Vitamin D deficiency, unspecified; G47.00 Insomnia, unspecified; Z79.891 Long term (current) use of opiate analgesic; Z79.899 Other long term (current) drug therapy; Z88.1 Allergy status to other antibiotic agents; Z88.8 Allergy status to other drugs, medicaments and biological substances; Z98.84 Bariatric surgery status | CPT/HCPCS: G0463 ==

== ENCOUNTER → 2019-02-03 | Outpatient (CLI) | payer OTHER ==
[~2019-02-03] MED LIST changes: +AMOX500C PO; +ASPI81CH49 PO; +AUGM875T28 PO; +BACL10TA2 PO; +BACL1TAB9 PO; -BUPIVACAINE HCL 0.25% 10 ML VIAL As Ordered; -BUPIVACAINE HCL 0.25% 30 ML VIAL As Ordered; +CLAR10CA3 PO; +CYCL10TA PO; +FERR325T3 PO; +HYDR-3715 PO; +IRONTAB3 PO; +OMEP40CA2 PO; +PRED20TA PO; +PREV30TA OR; +THIA100T7 PO; +TRAM50TA2 PO; +TRAZ-163 PO; -TRIAMCINOLONE ACETONIDE SUSP 40 MG/ML VIAL (J3301) As Ordered; +TYLE325T5 PO; +ULTR50TA8 PO; +VITA50005 PO; +[UNRECOGNIZED DRUG - OTHER]; +[UNRECOGNIZED DRUG - REMARK] PO; -diazePAM 5 MG TAB As Ordered; -oxyCODONE 5MG TAB As Ordered
--- NOTE | 2019-02-15 01:54 | ECWPNPC ---
PATIENT NAME: OBED ANDERSON : 1980 GENDER: FEMALE VISIT DATE: 02/03/2019 DISCHARGE DATE: 02/03/19 1423 VISIT LOCKED DATE TIME: PHYSICIAN: GAIL GARRISON RESOURCE: GAIL GARRISON REASON FOR APPOINTMENT 1. POST TPI HISTORY OF PRESENT ILLNESS HISTORY OF PRESENT ILLNESS: HERE FOR F/U OF CHRONIC RIGHT UPPER BACK/NECK PAIN.ALSO SUFFERS FROM CHRONIC LOW BACK PAIN.USUALLY RESPONDS WELL TO TPI IN PAST.RATING PAIN VAS 7/10.. PAIN THE PATIENT DESCRIBES THE PAIN... FALL RISK SCREENING: SCREENING :NO FALLS REPORTED IN THE LAST YEAR CURRENT MEDICATIONS TAKING FERROUS SULFATE 325 (65 FE) MG TABLET 1 TABLET WITH MEAL ORALLY QID TAKING COLACE 100 MG CAPSULE 1 -2 CAPSULES NEEDED ORALLY ONCE A DAY TAKING OMEPRAZOLE 40 MG CAPSULE DELAYED RELEASE 1 CAPSULE BEFORE MEAL ORALLY ONCE A DAY TAKING VITAMIN D 1000 UNIT TABLET 1 TABLET ORALLY ONCE A DAY TAKING TRAMADOL HCL 50 MG TABLET 1-2 TAB ORALLY Q 6 HRS PRN PAIN MDD=6 TAKING BACLOFEN 20 MG TABLET 1 TABLET WITH FOOD OR MILK ORALLY EVERY 8 HRS, NOTES: PT TOLD TO STOP WHEN HOSPITALIZED TAKING TIZANIDINE HCL 2 MG TABLET 1 TABLET NEEDED ORALLY BEFORE BEDTIME NOT-TAKING TRAZODONE HCL 100 MG TABLET 1 TABLET AT BEDTIME ORALLY ONCE A DAY NOT-TAKING LORATADINE 10 MG TABLET 1 TABLET ORALLY ONCE A DAY MEDICATION LIST REVIEWED AND RECONCILED WITH THE PATIENT PAST MEDICAL HISTORY GASTROESOPHAGEAL REFLUX DISEASE, ESOPHAGITIS PRESENCE NOT SPECIFIED IRON DEFICIENCY ANEMIA, UNSPECIFIED IRON DEFICIENCY ANEMIA TYPE STATUS POST BARIATRIC SURGERY PRIMARY INSOMNIA VITAMIN D DEFICIENCY VITAMIN B12 DEFICIENCY ALLERGIES BACTRIM DS: RASH/FEVER - ALLERGY BACLOFEN: CONFUSION - CONTRAINDICATION SURGICAL HISTORY GASTRIC BY PASS 2005 C- SECTION X2 2007,2011 FAMILY HISTORY FATHER: ALIVE MOTHER: ALIVE SIBLINGS: ALIVE SON(S): ALIVE DAUGHTER(S): ALIVE SOCIAL HISTORY GENERAL: TOBACCO USE ARE YOU A:NONSMOKER ALCOHOL SCREENING DID YOU HAVE A DRINK CONTAINING ALCOHOL IN THE PAST YEAR?NO POINTS0 INTERPRETATIONNEGATIVE RECREATIONAL DRUG USE DRUG USE? NO. CAFFEINE CAFFEINE USE? NO . DRUZE NO PREFERENCE. LANGUAGE ALBANIAN. EDUCATION GRADUATED HS. LEARNING BARRIERS / SPECIAL NEEDS BARRIERS TO LEARNING?NO READINESS TO LEARN?YES LEARNING PREFERENCES?NO LEARNING CAPABILITIES PRESENT?YES DIET: NONE. EXERCISE: WALKS DAILY. MARITAL STATUS: . OTHERS AT HOME: MOTHER, SISTER AND CHILDREN. PAIN CLINIC PFS, CLERGY, PUBLIC HEALTH REFERRALS PFS REFERRAL NEEDED?NO CLERGY REFERRAL NEEDED?NO PUBLIC HEALTH REFERRAL NEEDED?NO WAS THE PROVIDER NOTIFIED OF ANY PERTINENT INFO?NO HAS THE PATIENT BEEN EDUCATED REGARDING HIS/HER PLAN OF CARE?YES HAS THE PATIENT BEEN EDUCATED REGARDING PAIN, THE RISK FOR PAIN, THE IMPORTANCE OF EFFECTIVE PAIN MANAGEMENT, AND THE PAIN ASSESSMENT PROCESS?YES ADVANCE DIRECTIVE ADVANCE DIRECTIVE DISCUSSED WITH PATIENT:YES DECLINED INFORMATION REVIEWED WITH PATIENT 08/09/18 1411 JS. HOSPITALIZATION/MAJOR DIAGNOSTIC PROCEDURE SURGERIES LISTED ONLY HOSPITALIZATIONS AMS 06/2018 REVIEW OF SYSTEMS REVIEWED BY: PROVIDER: GAIL VERGARA . CONSTITUTIONAL: ANY CHANGE IN YOUR MEDICAL CONDITION? NO . CHILLS NO . FEVER NO . INFECTION: DO YOU HAVE NEW INFECTIONS? NO . DO YOU HAVE HISTORY OF MRSA? NO . MUSCULOSKELETAL: ANY NEW PATTERNS OF PAIN OR NUMBNESS? NO . GASTROENTEROLOGY: ANY NEW CHANGE IN BOWEL CONTROL? NO . GENITOURINARY: ANY NEW CHANGE IN BLADDER CONTROL? NO . IS THERE A CHANCE YOU COULD BE ? NO . HEMATOLOGY/LYMPH: DO YOU TAKE ANY BLOOD THINNERS? (FOR EXAMPLE- COUMADIN, PLAVIX, AGGRENOX, PLATEL, PRADAXA, OR XARELTO) NO . WHEN WAS YOUR LAST DOSE? DATE: TIME: . NEUROLOGY: HAVE YOU FALLEN IN THE PAST 12 MONTHS? NO . ANY NEW EXTREMITY NUMBNESS OR WEAKNESS? NO . CARDIOLOGY: DO YOU HAVE A PACEMAKER OR DEFIBRILLATOR? NO . RESPIRATORY: HAVE YOU BEEN SICK IN THE PAST WEEK? NO . FEVER NO . FLU LIKE SYMPTOMS? NO . COUGH NO . INTEGUMENTARY: DO YOU HAVE ANY RASHES OR OPEN SORES? NO . ALLERGIC/IMMUNO: ARE YOU ALLERGIC TO IV DYE? NO . ANY NEW ALLERGIES? NO . PSYCHIATRIC: DO YOU HAVE THOUGHTS OF HURTING YOURSELF OR SOMEONE ELSE? NO . ARE YOU ABUSED, NEGLECTED, OR IN AN UNSAFE ENVIRONMENT? NO . ENDOCRINOLOGY: ARE YOU DIABETIC? NO . OTHER: DO YOU NEED ANY PRESCRIPTIONS? YES, TRAMADOL . IF YES, PLEASE LIST: ____ . ANY NEW PROBLEMS WITH YOUR MEDICATIONS? NO . WHEN DID YOU LAST EAT? ____ . WHEN DID YOU LAST DRINK? ____ . WHAT DID YOU LAST DRINK? ____ . NAME OF PERSON DRIVING YOU HOME? ____ . DO YOU HAVE ANY OTHER QUESTIONS OR CONCERNS NO . VITAL SIGNS WT 204.0 LBS, HT 65 IN, BMI 33.94 INDEX, BP 150/77 MM HG, HR 95 /MIN, RR 18 /MIN, TEMP 99.4 F, OXYGEN SAT % 100%, NA INITIALS SC 13:20, REVIEWED BY: YASSINE. EXAMINATION GENERAL EXAMINATION: GENERAL APPEARANCE: AWAKE,ALERT ,PLEAASANT . PSYCH AFFECT NORMAL . LUNGS: LUNG [place]HE[place]RIA ARE CLEAR TO AUSCULTATION BILATERALLY. GOOD MOVEMENT OF AIR . HEART: S1, S2 IN A REGULAR RATE AND RHYTHM. NO SIGNIFICANT MURMURS, RUBS OR GALLOPS NOTED . CERVICAL TRIGGER POINTS: RIGHT CERVICAL AND TRAPEZIUS ..PAIN IS AGGREVATED WITH ROJM NECK. ASSESSMENTS MYALGIA, OTHER SITE - M79.18 (PRIMARY) TREATMENT MYALGIA, OTHER SITE NOTES: TPI RIGHT NECK. PROCEDURE CODES FA211 ESTABILISHED PATIENT [facility] CHARGE DISPOSITION & COMMUNICATION FOLLOW UP POST (REASON: TPI RIGHT NECK) ELECTRONICALLY SIGNED BY URSULA BARDALES ON 02/13/2019 AT 02:41 PM EDT DISCLAIMER : THIS IS A VISIT SUMMARY EXTRACTED FROM THE [employer] CHART. IT IS NOT A COPY OF THE [employer] PROGRESS NOTE. CLARISSA
== END ==
LOC: M PAIN 13:15
PROVIDERS: ATTEND Nurse Practitioner Family
DX: M79.18 Myalgia, other site (principal); K21.9 Gastro-esophageal reflux disease without esophagitis; D50.9 Iron deficiency anemia, unspecified; G47.00 Insomnia, unspecified; E55.9 Vitamin D deficiency, unspecified; E53.8 Deficiency of other specified B group vitamins; Z98.84 Bariatric surgery status; Z79.899 Other long term (current) drug therapy; Z88.2 Allergy status to sulfonamides; Z88.8 Allergy status to other drugs, medicaments and biological substances

== ENCOUNTER 2019-03-02 13:54 | Emergency (ER) | payer OTHER ==
[~2019-03-02] VITALS: Ht 165.1 cm; Wt 89.2 kg
[2019-03-02] MEDS ORDERED: IBUP-1022 PO (14:45)
[2019-03-02] MEDS ORDERED: PENI500T PO (14:45)
[2019-03-02 15:12] VITALS: BP 178/100
== END 2019-03-02 15:24 | disposition home or self-care (01) ==
LOC: M ED 13:54
DX: K04.6 Periapical abscess with sinus (principal); R68.84 Jaw pain; S02.5XXA Fracture of tooth (traumatic), initial encounter for closed fracture; X58.XXXA Exposure to other specified factors, initial encounter; Y92.89 Other specified places as the place of occurrence of the external cause; K02.9 Dental caries, unspecified; E11.9 Type 2 diabetes mellitus without complications; I10 Essential (primary) hypertension; Z98.84 Bariatric surgery status; Z88.2 Allergy status to sulfonamides; Z79.899 Other long term (current) drug therapy

== ENCOUNTER → 2019-05-09 | Outpatient (CLI) | payer OTHER ==
[~2019-05-09] MED LIST changes: +BUPIVACAINE HCL 0.25% 10 ML VIAL As Ordered ONE; +BUPIVACAINE HCL 0.25% 30 ML VIAL As Ordered ONE; +IBUP-1022 PO; +PENI500T PO; +TRIAMCINOLONE ACETONIDE SUSP 40 MG/ML VIAL (J3301) As Ordered ONE; +diazePAM 5 MG TAB As Ordered ONE; +oxyCODONE 5MG TAB As Ordered ONE
--- NOTE | 2019-05-19 00:56 | ECWPNPC ---
PATIENT NAME: OBED ANDERSON : 1980 GENDER: FEMALE VISIT DATE: 05/09/2019 DISCHARGE DATE: 05/09/19 1202 VISIT LOCKED DATE TIME: PHYSICIAN: LATONYA ÁLVAREZ MD RESOURCE: LATONYA ÁLVAREZ MD REASON FOR APPOINTMENT 1. TPI HISTORY OF PRESENT ILLNESS HISTORY OF PRESENT ILLNESS: PAIN THE PATIENT DESCRIBES THE PAIN... FALL RISK SCREENING: SCREENING :NO FALLS REPORTED IN THE LAST YEAR CURRENT MEDICATIONS TAKING FERROUS SULFATE 325 (65 FE) MG TABLET 1 TABLET WITH MEAL ORALLY QID, NOTES: 05/08 2000 TAKING COLACE 100 MG CAPSULE 1 -2 CAPSULES NEEDED ORALLY ONCE A DAY, NOTES: LAST WEEK TAKING TRAMADOL HCL 50 MG TABLET 1-2 TAB ORALLY Q 6 HRS PRN PAIN MDD=6, NOTES: 05/08 1700 TAKING TIZANIDINE HCL 2 MG TABLET 1 TABLET NEEDED ORALLY BEFORE BEDTIME, NOTES: 05/08 2100 TAKING BACLOFEN 20 MG TABLET 1 TABLET WITH FOOD OR MILK ORALLY EVERY 8 HRS, NOTES: 05/09 0800 NOT-TAKING OMEPRAZOLE 40 MG CAPSULE DELAYED RELEASE 1 CAPSULE BEFORE MEAL ORALLY ONCE A DAY NOT-TAKING VITAMIN D 1000 UNIT TABLET 1 TABLET ORALLY ONCE A DAY NOT-TAKING TRAZODONE HCL 100 MG TABLET 1 TABLET AT BEDTIME ORALLY ONCE A DAY NOT-TAKING LORATADINE 10 MG TABLET 1 TABLET ORALLY ONCE A DAY MEDICATION LIST REVIEWED AND RECONCILED WITH THE PATIENT PAST MEDICAL HISTORY GASTROESOPHAGEAL REFLUX DISEASE, ESOPHAGITIS PRESENCE NOT SPECIFIED IRON DEFICIENCY ANEMIA, UNSPECIFIED IRON DEFICIENCY ANEMIA TYPE STATUS POST BARIATRIC SURGERY PRIMARY INSOMNIA VITAMIN D DEFICIENCY VITAMIN B12 DEFICIENCY NECK PAIN ALLERGIES BACTRIM DS: RASH/FEVER - ALLERGY BACLOFEN: CONFUSION - SIDE EFFECTS SURGICAL HISTORY GASTRIC BY PASS 2005 C- SECTION X2 2007,2011 FAMILY HISTORY FATHER: ALIVE, HISTORY UNKNOWN MOTHER: ALIVE, ANXIETY. DDD, DIAGNOSED WITH HYPERTENSION, OTHER SIBLINGS: ALIVE SON(S): ALIVE DAUGHTER(S): ALIVE SOCIAL HISTORY GENERAL: TOBACCO USE ARE YOU A:NONSMOKER OTHERS AT HOME: MOTHER, SISTER AND CHILDREN. EDUCATION LEVEL OF EDUCATION:FINISHED HIGH SCHOOL DIET: NONE. LANGUAGE EQUATORIAL GUINEAN. DOMESTIC VIOLENCE DO YOU FEEL SAFE IN YOUR ENVIRONMENT?YES RECREATIONAL DRUG USE DRUG USE? NO. EXERCISE: WALKS DAILY. LEARNING BARRIERS / SPECIAL NEEDS BARRIERS TO LEARNING?NO HEARING IMPAIRED?NO VISION IMPAIRED?YES :CORRECTIVE LENSES COGNITIVELY IMPAIRED?NO READINESS TO LEARN?YES LEARNING PREFERENCES?NO LEARNING CAPABILITIES PRESENT?YES EMOTIONAL BARRIERS?NO SPECIAL DEVICES?NO MEDICAL CLAIMS REPRESENTATIVE NEEDED?NO PAIN CLINIC PFS, CLERGY, PUBLIC HEALTH REFERRALS PFS REFERRAL NEEDED?NO CLERGY REFERRAL NEEDED?NO PUBLIC HEALTH REFERRAL NEEDED?NO WAS THE PROVIDER NOTIFIED OF ANY PERTINENT INFO?NO HAS THE PATIENT BEEN EDUCATED REGARDING HIS/HER PLAN OF CARE?YES HAS THE PATIENT BEEN EDUCATED REGARDING PAIN, THE RISK FOR PAIN, THE IMPORTANCE OF EFFECTIVE PAIN MANAGEMENT, AND THE PAIN ASSESSMENT PROCESS?YES LATEX QUESTIONNAIRE LATEX ALLERGY : HAVE YOU EVER DEVELOPED ANY TYPE OF REACTION AFTER HANDLING LATEX PRODUCTS SUCH RUBBER GLOVES, CONDOMS, DIAPHRAGMS, BALLOONS, SOCKS, OR UNDERWEAR?NO LATEX ALLERGY : HAVE YOU EVER DEVELOPED ANY TYPE OF REACTION DURING OR AFTER DENTAL APPOINTMENT, VAGINAL/RECTAL EXAMINATION, SURGICAL PROCEDURE, OR ANY OTHER EXPOSURE?NO LATEX RISK : HAVE YOU EVER HAD ANY DIFFICULTY BREATHING OR HIVES AFTER EATING OR HANDLING ANY FRUITS, OR VEGETABLES; SUCH KIWI, BANANAS, STONE FRUITS, OR CHESTNUTSNO LATEX RISK : DO YOU HAVE A PREVIOUS PERSONAL HISTORY OF MORE THAN NINE SURGERIES, SPINA BIFIDA, OR REPEATED CATHERTIZATIONS? NO LATEX RISK : ARE YOU FREQUENTLY EXPOSED TO LATEX PRODUCTS IN YOUR OCCUPATION?NO DATE ASKED : 05/09/2019 CAFFEINE CAFFEINE USE? NO. ADVANCE DIRECTIVE ADVANCE DIRECTIVE DISCUSSED WITH PATIENT:YES 05/09/19 PT DOES NOT HAVE ANY ADVANCED DIRECTIVES AND SHE DECLINED INFORMATION ON HCP AT THIS TIME. AD SYNAGOGUE NO PREFERENCE. MARITAL STATUS: . ALCOHOL SCREENING DID YOU HAVE A DRINK CONTAINING ALCOHOL IN THE PAST YEAR?NO POINTS0 INTERPRETATIONNEGATIVE REVIEWED WITH PATIENT 08/09/18 1411 JS. HOSPITALIZATION/MAJOR DIAGNOSTIC PROCEDURE SURGERIES LISTED ONLY HOSPITALIZATIONS AMS 06/2018 REVIEW OF SYSTEMS REVIEWED BY: PROVIDER: . CONSTITUTIONAL: ANY CHANGE IN YOUR MEDICAL CONDITION? NO . CHILLS NO . FEVER NO . INFECTION: DO YOU HAVE NEW INFECTIONS? NO . DO YOU HAVE HISTORY OF MRSA? NO . MUSCULOSKELETAL: ANY NEW PATTERNS OF PAIN OR NUMBNESS? NO . GASTROENTEROLOGY: ANY NEW CHANGE IN BOWEL CONTROL? NO . GENITOURINARY: ANY NEW CHANGE IN BLADDER CONTROL? NO . IS THERE A CHANCE YOU COULD BE ? NO . HEMATOLOGY/LYMPH: DO YOU TAKE ANY BLOOD THINNERS? (FOR EXAMPLE- COUMADIN, PLAVIX, AGGRENOX, PLATEL, PRADAXA, OR XARELTO) NO . WHEN WAS YOUR LAST DOSE? DATE: TIME: . NEUROLOGY: HAVE YOU FALLEN IN THE PAST 12 MONTHS? NO . ANY NEW EXTREMITY NUMBNESS OR WEAKNESS? NO . CARDIOLOGY: DO YOU HAVE A PACEMAKER OR DEFIBRILLATOR? NO . RESPIRATORY: HAVE YOU BEEN SICK IN THE PAST WEEK? NO . FEVER NO . FLU LIKE SYMPTOMS? NO . COUGH NO . INTEGUMENTARY: DO YOU HAVE ANY RASHES OR OPEN SORES? NO . ALLERGIC/IMMUNO: ARE YOU ALLERGIC TO IV DYE? NO . ANY NEW ALLERGIES? NO . PSYCHIATRIC: DO YOU HAVE THOUGHTS OF HURTING YOURSELF OR SOMEONE ELSE? NO . ARE YOU ABUSED, NEGLECTED, OR IN AN UNSAFE ENVIRONMENT? NO . ENDOCRINOLOGY: ARE YOU DIABETIC? NO . OTHER: DO YOU NEED ANY PRESCRIPTIONS? NO . IF YES, PLEASE LIST: ____ . ANY NEW PROBLEMS WITH YOUR MEDICATIONS? NO . WHEN DID YOU LAST EAT? ____05/08/19 1700 . WHEN DID YOU LAST DRINK? ____05/09/19 0700 . WHAT DID YOU LAST DRINK? ____WATER . NAME OF PERSON DRIVING YOU HOME? ____KEYSHAWN MONICA . DO YOU HAVE ANY OTHER QUESTIONS OR CONCERNS NO . VITAL SIGNS WT 202.6 LBS, HT 65 IN, BMI 33.71 INDEX, BP 126/67 MM HG, HR 91 /MIN, RR 18 /MIN, TEMP 98.7 F, OXYGEN SAT % 100%, SAFE IN ENV? (Y/N) Y, NA INITIALS LA 10:25, REVIEWED BY: AD. ASSESSMENTS MYALGIA, OTHER SITE - M79.18 (PRIMARY) PROCEDURES PN TRIGGER POINT INJECTION WITH STEROIDS PRE PROCEDURE DIAGNOSIS 1. MYALGIA 2. PAIN AT RIGHT SHOULDER AREA POST PROCEDURE DIAGNOSIS 1. MYALGIA 2. PAIN AT RIGHT SHOULDER AREA PROCEDURE TRIGGER POINT INJECTION AT RIGHT SHOULDER AREA SURGEON DR. LATONYA ÁLVAREZ CLEARANCE COORDINATOR NONE ANESTHESIA LOCAL PRE PROCEDURE NOTE THE PATIENT HAS A HISTORY OF CHRONIC PAIN AT THE RIGHT SHOULDER AREA. I EVALUATE THE PATIENT AND REVIEWED THE CHART. THERE IS EVIDENCE OF BANDS OF TISSUE WITH RESTRICTION OF MOVEMENT AND PRESENCE OF TRIGGER POINT AT THE AFFECTED AREA. I WENT OVER THE RISKS, ALTERNATIVES, AND BENEFITS ASSOCIATED WITH THIS PROCEDURE. THE PATIENT WOULD LIKE TO PROCEED AND GIVE CONSENT TO PERFORMED THE PROCEDURE. THE PATIENT DENIES UNEXPLAINABLE WEIGHT LOSS, FEVER, CHILLS, OR NEW CHANGES IN URINARY OR BOWEL CONTROL DESCRIPTION OF PROCEDURE THE PATIENT WAS BROUGHT TO THE PROCEDURE ROOM AND PLACED IN THE SITTING POSITION. THE AREA WAS CLEANED WITH ALCOHOL. THE PROCEDURE WAS DONE USING ASEPTIC STERILE TECHNIQUE. I CHECKED LATERALITY AND THE LEVEL WHERE THE PROCEDURE WAS GOING TO BE PERFORMED WITH THE PATIENT AND THE SUPPORTING STAFF AT THE MOMENT OF THE TIME OUT IN THE PROCEDURE ROOM. USING A 25-GAUGE NEEDLE, TRIGGER POINTS WERE INJECTED AT THE RIGHT SHOULDER AREA WITH A TOTAL OF 40 ML OF BUPIVACAINE 0.25% AND KENALOG 40 MG. THERE WAS NO EVIDENCE OF BLOOD, PARESTHESIA OR CEREBROSPINAL FLUID DURING THE PROCEDURE. THE PATIENT WAS SENT TO THE RECOVERY ROOM. THE PATIENT WAS MOVING THE EXTREMITIES AND DOING WELL. THERE WAS NO COMPLICATION DURING THE PROCEDURE POST PROCEDURE NOTE THE PATIENT WILL BE SEEN IN A FOLLOW UP IN THE NEXT FEW WEEKS. INSTRUCTIONS WERE GIVEN, QUESTIONS WERE ANSWERED, AND THE PATIENT EXPRESSED UNDERSTANDING AND AGREES WITH THE PLAN. I, DVAIN SOTO, DOCUMENTED THE ABOVE INFORMATION ACTING A SCRIBE FOR DR. ÁLVAREZ. I HAVE REVIEWED THE ABOVE DOCUMENT, WRITTEN BY DAVIN PIRES AND I VERIFY THAT IT IS ACCURATE. PROCEDURE CODES 97247 INJ TRIGGER POINT /2 [facility] [place] [facility] FOLLOW UP 3 WEEKS ELECTRONICALLY SIGNED BY LATONYA ÁLVAREZ MD, MD ON 05/18/2019 AT 01:47 PM EDT DISCLAIMER : THIS IS A VISIT SUMMARY EXTRACTED FROM THE [employer] [facility] CHART. IT IS NOT A COPY OF THE [employer] [facility] PROGRESS NOTE. CLARISSA
== END ==
LOC: M PAIN 10:30
PROVIDERS: ATTEND Anesthesiology
DX: M79.18 Myalgia, other site (principal); K21.9 Gastro-esophageal reflux disease without esophagitis; D50.9 Iron deficiency anemia, unspecified; G47.00 Insomnia, unspecified; E55.9 Vitamin D deficiency, unspecified; E53.8 Deficiency of other specified B group vitamins; M54.2 Cervicalgia; Z98.84 Bariatric surgery status; Z79.891 Long term (current) use of opiate analgesic; Z79.899 Other long term (current) drug therapy; Z88.2 Allergy status to sulfonamides; Z88.8 Allergy status to other drugs, medicaments and biological substances
CPT/HCPCS: 20552; J3301

== ENCOUNTER 2019-06-24 07:08 | Emergency (ER) | payer OTHER ==
[~2019-06-24] VITALS: Ht 167.6 cm; Wt 90.9 kg
[~2019-06-24 07:08] MED LIST changes: -BUPIVACAINE HCL 0.25% 10 ML VIAL As Ordered ONE; -BUPIVACAINE HCL 0.25% 30 ML VIAL As Ordered ONE; -OMEP40CA2 PO; +OMEP40CA97 PO; -TRAZ-163 PO; +TRAZ-257 PO; -TRIAMCINOLONE ACETONIDE SUSP 40 MG/ML VIAL (J3301) As Ordered ONE; -diazePAM 5 MG TAB As Ordered ONE; -oxyCODONE 5MG TAB As Ordered ONE
[2019-06-24 07:09] VITALS: BP 129/83
[2019-06-24] MEDS ORDERED: BACL1TAB9 PO ×2 (07:22→08:07)
== END 2019-06-24 08:10 | disposition home or self-care (01) ==
LOC: M ED 07:08
DX: Z76.0 Encounter for issue of repeat prescription (principal); G89.29 Other chronic pain; M54.2 Cervicalgia; M54.9 Dorsalgia, unspecified; Z98.84 Bariatric surgery status; G93.40 Encephalopathy, unspecified; Z87.09 Personal history of other diseases of the respiratory system; K21.9 Gastro-esophageal reflux disease without esophagitis; Z87.440 Personal history of urinary (tract) infections; D64.9 Anemia, unspecified; E55.9 Vitamin D deficiency, unspecified; E53.8 Deficiency of other specified B group vitamins; F32.9 Major depressive disorder, single episode, unspecified; Z79.899 Other long term (current) drug therapy; Z88.2 Allergy status to sulfonamides; Z88.1 Allergy status to other antibiotic agents

== ENCOUNTER → 2019-06-26 | Outpatient (CLI) | payer OTHER ==
[~2019-06-26] MED LIST changes: +OMEP40CA2 PO; -OMEP40CA97 PO; +TRAZ-163 PO; -TRAZ-257 PO
--- NOTE | 2019-07-13 03:03 | ECWPNPC ---
PATIENT NAME: OBED ANDERSON : 1980 GENDER: FEMALE VISIT DATE: 06/26/2019 DISCHARGE DATE: 06/26/19 1158 VISIT LOCKED DATE TIME: PHYSICIAN: GAIL GARRISON RESOURCE: GAIL GARRISON DISCLAIMER : THIS IS A VISIT SUMMARY EXTRACTED FROM THE [employer] CHART. IT IS NOT A COPY OF THE [employer] PROGRESS NOTE. MTDD
== END ==
LOC: M PAIN 11:15
PROVIDERS: ATTEND Nurse Practitioner Family
DX: M79.18 Myalgia, other site (principal); D50.9 Iron deficiency anemia, unspecified; Z98.84 Bariatric surgery status; F51.01 Primary insomnia; Z88.1 Allergy status to other antibiotic agents; Z88.8 Allergy status to other drugs, medicaments and biological substances; Z79.891 Long term (current) use of opiate analgesic; Z79.899 Other long term (current) drug therapy

== ENCOUNTER 2019-08-21 11:26 | Observation (INO) | payer OTHER ==
[~2019-08-21] VITALS: Ht 162.6 cm; Wt 88.4 kg
[~2019-08-21 11:26] MED LIST changes: -OMEP40CA2 PO; +OMEP40CA97 PO
[2019-08-21] MEDS ORDERED: IRON65TA2 PO (11:37)
[2019-08-21] MEDS ORDERED: NS 1,000 ML IV ONE (13:15)
[2019-08-21 14:10] LABS: HEMATOCRIT 31.2 % (36.0-47.0); MEAN CORPUSCULAR HGB CONC 28.8 g/dl (32.0-36.5); MEAN CORPUSCULAR VOLUME 72.9 fl (80.0-96.0); PLATELET COUNT, AUTOMATED 295 10^3/uL (150-450); RED BLOOD COUNT 4.28 10^6/uL (4.00-5.40); WHITE BLOOD COUNT 4.3 10^3/uL (4.0-10.0)
[2019-08-21 14:17] LABS: HCG, SERUM QUALITATIVE NEGATIVE (NEGATIVE)
[2019-08-21 14:27] LABS: AMPHETAMINES LEVEL URINE NEGATIVE (NEGATIVE); BARBITURATES URINE NEGATIVE (NEGATIVE); BENZODIAZEPINES URINE NEGATIVE (NEGATIVE); CANNABINOIDS URINE NEGATIVE (NEGATIVE); COCAINE METABOLITE URINE NEGATIVE (NEGATIVE); METHADONE URINE NEGATIVE (NEGATIVE); OPIATES URINE NEGATIVE (NEGATIVE); PHENCYCLIDINE URINE NEGATIVE (NEGATIVE)
[2019-08-21 14:34] LABS: ACETAMINOPHEN LEVEL < 2.0 UG/ML (10.0-30.0); ALBUMIN 4.2 GM/DL (3.2-5.2); ALT/SGPT 15 U/L (12-78); BILIRUBIN,DIRECT 0.1 MG/DL (0.0-0.2); BILIRUBIN,TOTAL 0.4 MG/DL (0.2-1.0); BLOOD UREA NITROGEN 5 MG/DL (7-18); CALCIUM LEVEL 9.1 MG/DL (8.5-10.1); CARBON DIOXIDE LEVEL 23 MEQ/L (21-32); CHLORIDE LEVEL 110 MEQ/L (98-107); CREATININE FOR GFR 0.76 MG/DL (0.55-1.30); ETHYL ALCOHOL (ETHANOL) < 0.003 % (0.000-0.010); GLOMERULAR FILTRATION RATE > 60.0 (>60); GLUCOSE, FASTING 81 MG/DL (70-100); POTASSIUM SERUM 3.5 MEQ/L (3.5-5.1); SALICYLATE LEVEL < 1.7 MG/DL (5.0-30.0); SODIUM LEVEL 142 MEQ/L (136-145); THYROID STIMULATING HORMONE 0.227 uIU/ML (0.358-3.740); TOTAL PROTEIN 7.7 GM/DL (6.4-8.2)
[2019-08-21] MEDS ORDERED: BACL1TAB9 PO (15:02)
[2019-08-21] MEDS ORDERED: TIZA4TAB4 PO (15:02)
[2019-08-21] MEDS ORDERED: ACET25TA12 PO (15:04)
--- NOTE | 2019-08-21 15:14 | HPEPDOC ---
[facility] Medical History & Physical Date of Admission Aug 21, 2019 Date of Service: Aug 21, 2019 Attending Physician: RODGER HERNANDEZ MD History and Physical CHIEF COMPLAINT: Shaking, malaise, fatigue, restless HISTORY OF PRESENT ILLNESS: 38-year-old female with past medical history of chronic back pain due to work-related injury on baclofen and tramadol, presents with symptoms concerning for baclofen withdrawal. She recently moved and reports losing her baclofen, last dose was for 5 days ago, presents to the ED with restlessness, shaking, malaise, fatigue. In the ED, patient is tachycardic with concerns of hallucinations. She reports having similar episode in the past when she was withdrawing from baclofen, reports requiring propofol infusion and intubation at that time. Patient will be admitted for observation and restart home baclofen. She reports significant improvement after getting benzodiazepines in the ED, remains symptomatic, but reports significant improvement. 10 point review of system was negative except for above PAST MEDICAL HISTORY: 1. Anemia. 2. Chronic back pain. 3. Iron deficiency. PAST SURGICAL HISTORY: 1. Gastric bypass. 2. 2. SOCIAL HISTORY: Never smoker, rare alcohol use FAMILY HISTORY: Mother with stroke ALLERGIES: Please see below. HOME MEDICATIONS: Please see below. PHYSICAL EXAMINATION: VITAL SIGNS: Please see below. GENERAL: No distress HEENT: Normocephalic, atraumatic, moist mucous membranes NECK: Supple CARDIOVASCULAR EXAMINATION: S1, S2, tachycardic RESPIRATORY EXAMINATION: Clear to auscultation, no wheezing ABDOMINAL EXAMINATION: Soft, nontender, nondistended, positive bowel sounds EXTREMITIES: Range of motion intact SKIN: No rash NEUROLOGICAL EXAMINATION: Alert and oriented 3, no focal deficits PSYCHIATRIC EXAMINATION: Calm and cooperative LABORATORY DATA: See below. MICROBIOLOGY: Please see below. ASSESSMENT: 38-year-old female with past medical history of gastric bypass, chronic back pain due to work-related injury on baclofen, admitted for baclofen withdrawal.. . PLAN: 1. Medication withdrawal. Restart home baclofen. Admit for observation, will give additional benzodiazepines if needed. Reports significant improvement after getting Valium IV in the ED. Restart home tramadol. Currently hemodynamically stable. 2. Iron deficiency. Continue home iron supplementation. 3. Obesity. Status post gastric bypass. DVT prophylaxis: Heparin subcutaneous. GI prophylaxis: Not needed Vital Signs Vital Signs Date Time Temp Pulse Resp B/P (MAP) Pulse Ox O2 Delivery O2 Flow Rate FiO2 08/21/19 15:00 78 18 148/78 (101) 100 Room Air 08/21/19 11:26 97.6 Laboratory Data Labs 24H Laboratory Tests 2 08/21/19 13:48: Nucleated Red Blood Cells % (auto) 0.0, Urine Color STRAW, Urine Appearance HAZY, Urine pH 5.0, Urine Specific [place] 1.004, Urine Protein NEGATIVE, Urine Glucose (UA) NEGATIVE, Urine Ketones 1+H, Urine Blood 2+H, Urine Nitrite NEGATIVE, Urine Bilirubin NEGATIVE, Urine Urobilinogen 0.2, Urine Leukocyte Esterase NEGATIVE, Urine WBC (Auto) 0, Urine RBC (Auto) 0, Urine Hyaline Casts (Auto) 0, Urine Bacteria (Auto) 1+H, Urine Squamous Epithelial Cells 9, Urine Sperm (Auto) , Anion Gap 9, Glomerular Filtration Rate > 60.0, Calcium Level 9.1, Aspartate Amino Transf (AST/SGOT) 16, Alanine Aminotransferase (ALT/SGPT) 15, Alkaline Phosphatase 93, Total Bilirubin 0.4, Direct Bilirubin 0.1, Total Protein 7.7, Albumin 4.2, Albumin/Globulin Ratio 1.20, Thyroid Stimulating Hormone (TSH) 0.227L, Human Chorionic Gonadotropin, Qual NEGATIVE, Salicylates Level < 1.7L, Urine Opiates Screen NEGATIVE, Urine Methadone Screen NEGATIVE, Acetaminophen Level < 2.0L, Urine Barbiturates Screen NEGATIVE, Urine Phencyclidine Screen NEGATIVE, Urine Amphetamines Screen NEGATIVE, Urine Benzodiazepines Screen NEGATIVE, Urine Cocaine Metabolite Screen NEGATIVE, Urine Cannabinoids Screen NEGATIVE, Ethyl Alcohol Level < 0.003 CBC/BMP Laboratory Tests 08/21/19 13:48 Red Blood Count 4.28, Mean Corpuscular Volume 72.9 L, Mean Corpuscular Hemoglobin 21.0 L, Mean Corpuscular Hemoglobin Concent 28.8 L, Red Cell Distribution Width 17.7 H Home Medications Scheduled Baclofen (Baclofen) 20 Mg Tablet, 20 MG PO TID Ferrous Sulfate (Iron) 325 Mg Tablet, 325 MG PO TID Scheduled PRN Acetaminophen/Diphenhydramine (Acetaminophen Pm Caplet) 1 Each Tablet, 1 TAB PO QHS PRN for SLEEP Tizanidine HCl (Tizanidine HCl) 4 Mg Tablet, 4 MG PO QHS PRN for SLEEP Tramadol HCl (Tramadol HCl) 50 Mg Tab, 100 MG PO Q6H PRN for PAIN Allergies Coded Allergies: Sulfa (Sulfonamide Antibiotics) (Verified Allergy, Intermediate, hives, 03/02/19) sulfamethoxazole (Verified Allergy, Intermediate, hives, 03/02/19) trimethoprim (Verified Allergy, Intermediate, hives, 03/02/19) A-FIB/CHADSVASC A-FIB History Current/History of A-Fib/PAF?: No RODGER HERNANDEZ MD Aug 21, 2019 15:14
[2019-08-21] MEDS ORDERED: POTASSIUM CHLORIDE 10 MEQ SR TABLET PO ONE (16:00)
[2019-08-21 17:10] VITALS: BP 138/78
[2019-08-21] MEDS: BACLOFEN 10 MG TAB PO SCH ×2 (17:25→21:10)
[2019-08-21] MEDS: FERROUS SULFATE 325MG TAB PO SCH ×2 (17:26→21:10)
[2019-08-21] MEDS: traMADol 50 MG TAB PO PRN (17:48)
[2019-08-21] MEDS ORDERED: diphenhydrAMINE 25 MG CAP PO PRN (21:00)
[2019-08-21] MEDS: HEPARIN SOD (PORCINE) 5000 UNITS/ML VIAL SC SCH (21:10)
[2019-08-21 22:00] VITALS: BP 135/71
[2019-08-22] MEDS: HEPARIN SOD (PORCINE) 5000 UNITS/ML VIAL SC SCH (05:07)
[2019-08-22 06:00] VITALS: BP 144/81
[2019-08-22 06:13] LABS: HEMATOCRIT 30.7 % (36.0-47.0); HEMOGLOBIN 8.9 g/dl (12.0-15.5); MEAN CORPUSCULAR HEMOGLOBIN 21.1 pg (27.0-33.0); MEAN CORPUSCULAR VOLUME 72.7 fl (80.0-96.0); PLATELET COUNT, AUTOMATED 290 10^3/uL (150-450); RED BLOOD COUNT 4.22 10^6/uL (4.00-5.40); WHITE BLOOD COUNT 3.3 10^3/uL (4.0-10.0)
[2019-08-22 06:33] LABS: ALT/SGPT 15 U/L (12-78); BILIRUBIN,TOTAL 0.4 MG/DL (0.2-1.0); BLOOD UREA NITROGEN 5 MG/DL (7-18); CALCIUM LEVEL 8.7 MG/DL (8.5-10.1); CARBON DIOXIDE LEVEL 25 MEQ/L (21-32); CHLORIDE LEVEL 110 MEQ/L (98-107); CREATININE FOR GFR 0.73 MG/DL (0.55-1.30); GLOMERULAR FILTRATION RATE > 60.0 (>60); GLUCOSE, FASTING 91 MG/DL (70-100); POTASSIUM SERUM 3.4 MEQ/L (3.5-5.1); SODIUM LEVEL 142 MEQ/L (136-145); TOTAL PROTEIN 7.9 GM/DL (6.4-8.2)
--- NOTE | 2019-08-22 07:38 | ECGEPIP ---
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
[2019-08-22] MEDS: traMADol 50 MG TAB PO PRN (07:50)
[2019-08-22] MEDS: FERROUS SULFATE 325MG TAB PO SCH (07:50)
[2019-08-22] MEDS: BACLOFEN 10 MG TAB PO SCH (07:50)
[2019-08-22] MEDS ORDERED: POTASSIUM CHLORIDE 10 MEQ SR TABLET PO ONE (09:00)
[2019-08-22] MEDS ORDERED: BACL1TAB9 PO (12:22)
[2019-08-22] MEDS ORDERED: TRAM1CAP15 PO (14:30)
--- NOTE | 2019-08-22 17:28 | DS.PDOC ---
Discharge Summary General Date of Admission Aug 21, 2019 at 11:27 Date of Discharge 08/22/2019 Attending Physician: RODGER HERNANDEZ MD Discharge Summary PROCEDURES PERFORMED DURING STAY: None. ADMITTING DIAGNOSES: 1. Medication withdrawal. DISCHARGE DIAGNOSES: 1. Medication withdrawal. COMPLICATIONS/CHIEF COMPLAINT: Chronic Neckand Back Pain,Drug Withddrawal,Steven De. HISTORY OF PRESENT ILLNESS: 38-year-old female with history of chronic back pain due to work-related injury was admitted for baclofen withdrawal. She recently moved and lost her baclofen, tramadol, presented to the ED with symptoms concerning for withdrawal, which included shakiness, dizziness, anxiety, tac hycardia, tachypnea. She was restarted on baclofen, tramadol, and received 1 dose of benzodiazepines. She reports near complete resolution of symptoms today, has no complaints at this time, wishes to go home. She will be sent home on a 5 day supply of baclofen and tramadol until she has her appointment with her pain management physician. HOSPITAL COURSE: As above. DISCHARGE MEDICATIONS: Please see below. ALLERGIES: Please see below. PHYSICAL EXAMINATION: VITAL SIGNS: Please see below. GENERAL: No distress HEENT: Normocephalic, atraumatic, moist mucous membranes NECK: Supple CARDIOVASCULAR EXAMINATION: S1, S2, no murmurs RESPIRATORY EXAMINATION: Clear to auscultation, no wheezing ABDOMINAL EXAMINATION: Soft, nontender, nondistended, positive bowel sounds EXTREMITIES: Range of motion intact SKIN: No rash NEUROLOGICAL EXAMINATION: Alert and oriented 3, no focal deficits PSYCHIATRIC EXAMINATION: Calm and cooperative LABORATORY DATA: Please see below. PROGNOSIS: Good ACTIVITY: As tolerated. DIET: Regular DISCHARGE PLAN: Issues. Follow with pain management and PCP in 1-2 weeks DISPOSITION: 01 Home, Self-Care. DISCHARGE INSTRUCTIONS: 1. As above. DISCHARGE CONDITION: Stable. TIME SPENT ON DISCHARGE: Greater than 26 minutes. Vital Signs/I&Os Vital Signs Date Time Temp Pulse Resp B/P (MAP) Pulse Ox O2 Delivery O2 Flow Rate FiO2 08/22/19 08:20 18 08/22/19 06:00 98.8 83 144/81 (102) 96 08/21/19 16:30 Room Air I&O- Last 24 Hours up to 6 AM 08/22/19 05:59 Intake Total 920 ml Output Total 350 ml Balance 570 ml Laboratory Data Labs 24H Laboratory Tests 2 08/22/19 05:47: Nucleated Red Blood Cells % (auto) 0.0, Anion Gap 7L, Glomerular Filtration Rate > 60.0, Blood Urea Nitrogen 5L, Creatinine 0.73, Sodium Level 142, Potassium Level 3.4L, Chloride Level 110H, Carbon Dioxide Level 25, Calcium Level 8.7, Aspartate Amino Transf (AST/SGOT) 16, Alanine Aminotransferase (ALT/SGPT) 15, Alkaline Phosphatase 89, Total Bilirubin 0.4, Total Protein 7.9, Albumin 4.0, Magnesium Level 2.0, Albumin/Globulin Ratio 1.03 CBC/BMP Laboratory Tests 08/22/19 05:47 Red Blood Count 4.22, Mean Corpuscular Volume 72.7 L, Mean Corpuscular Hemoglobin 21.1 L, Mean Corpuscular Hemoglobin Concent 29.0 L, Red Cell Distribution Width 17.9 H, Calcium Level 8.7, Aspartate Amino Transf (AST/SGOT) 16, Alanine Aminotransferase (ALT/SGPT) 15, Alkaline Phosphatase 89, Total Bilirubin 0.4, Total Protein 7.9, Albumin 4.0 Discharge Medications Scheduled Baclofen (Baclofen) 20 Mg Tablet, 20 MG PO TID Ferrous Sulfate (Iron) 325 Mg Tablet, 325 MG PO TID, (Reported) Tramadol Hcl (Tramadol HCl ER) 100 Mg Cpbp.25.75, 100 MG PO Q6H for severe pain Scheduled PRN Acetaminophen/Diphenhydramine (Acetaminophen Pm Caplet) 1 Each Tablet, 1 TAB PO QHS PRN for SLEEP, (Reported) Tizanidine HCl (Tizanidine HCl) 4 Mg Tablet, 4 MG PO QHS PRN for SLEEP, (Reported) Tramadol HCl (Tramadol HCl) 50 Mg Tab, 100 MG PO Q6H PRN for PAIN, (Reported) Allergies Coded Allergies: Sulfa (Sulfonamide Antibiotics) (Verified Allergy, Intermediate, hives, 03/02/19) sulfamethoxazole (Verified Allergy, Intermediate, hives, 03/02/19) trimethoprim (Verified Allergy, Intermediate, hives, 03/02/19) RODGER HERNANDEZ MD Aug 22, 2019 17:28
== END 2019-08-22 13:30 | disposition home or self-care (01) ==
LOC: M ED 11:26 → M ED INP 11:27 → M MSPAV 17:00
PROVIDERS: ADMIT Internal Medicine; ATTEND Internal Medicine
DX: F11.23 Opioid dependence with withdrawal (principal); G89.29 Other chronic pain; M54.5 Low back pain; D50.9 Iron deficiency anemia, unspecified; Z98.84 Bariatric surgery status; Z79.899 Other long term (current) drug therapy; Z88.2 Allergy status to sulfonamides; Z88.1 Allergy status to other antibiotic agents
CPT/HCPCS: 36415; 80048; 80053; 80076; 80307; 81001; 83735; 84443; 84703; 85027; 93005; 93041; 94760; 96361; 96372; 96374; 99285; G0480; J3360

== ENCOUNTER → 2019-10-16 | Outpatient (CLI) | payer OTHER ==
[~2019-10-16] MED LIST changes: +ACET25TA12 PO; +IRON65TA2 PO; +TIZA4TAB4 PO; +TRAM1CAP15 PO
--- NOTE | 2019-10-19 02:38 | ECWPNPC ---
PATIENT NAME: OBED ANDERSON : 1980 GENDER: FEMALE VISIT DATE: 10/16/2019 DISCHARGE DATE: 10/16/19 1442 VISIT LOCKED DATE TIME: PHYSICIAN: KATE SEBASTIAN RESOURCE: KATE SEBASTIAN REASON FOR APPOINTMENT 1. RIGHT NECK HISTORY OF PRESENT ILLNESS HISTORY OF PRESENT ILLNESS: PAIN THE PATIENT DESCRIBES THE PAIN... 39-YEAR-OLD FEMALE IN FOR CHRONIC PAIN FOLLOW-UP SHE RATES HER PAIN CURRENTLY AT A 7 OUT OF 10 AND DESCRIBES IT SORE, TENDER, AND SHARP. SHE FEELS HER MEDICATIONS ARE WORKING WELL AND DENIES MED SIDE EFFECTS AT THIS TIME. SHE DOES ADMIT TO DISCONTINUATION OF TIZANIDINE. SHE WOULD LIKE TO DISCUSS TRIGGER POINTS FOR HER RIGHT SHOULDER AND NECK AREA SHE'S HAD THESE IN THE PAST AND THEY HAVE HELPED TO ALLEVIATE HER SYMPTOMS. FALL RISK SCREENING: SCREENING :NO FALLS REPORTED IN THE LAST YEAR CURRENT MEDICATIONS TAKING FERROUS SULFATE 325 (65 FE) MG TABLET 1 TABLET WITH MEAL ORALLY QID TAKING COLACE 100 MG CAPSULE 1 -2 CAPSULES NEEDED ORALLY ONCE A DAY TAKING TIZANIDINE HCL 4 MG TABLET 1 TABLET NEEDED ORALLY BEFORE BEDTIME TAKING TRAMADOL HCL 50 MG TABLET 1-2 TAB ORALLY Q8H PRN MDD6 TAKING BACLOFEN 20 MG TABLET 1 TABLET WITH FOOD OR MILK ORALLY EVERY 8 HRS NOT-TAKING OMEPRAZOLE 40 MG CAPSULE DELAYED RELEASE 1 CAPSULE BEFORE MEAL ORALLY ONCE A DAY NOT-TAKING VITAMIN D 1000 UNIT TABLET 1 TABLET ORALLY ONCE A DAY NOT-TAKING TRAZODONE HCL 100 MG TABLET 1 TABLET AT BEDTIME ORALLY ONCE A DAY NOT-TAKING LORATADINE 10 MG TABLET 1 TABLET ORALLY ONCE A DAY MEDICATION LIST REVIEWED AND RECONCILED WITH THE PATIENT PAST MEDICAL HISTORY GASTROESOPHAGEAL REFLUX DISEASE, ESOPHAGITIS PRESENCE NOT SPECIFIED IRON DEFICIENCY ANEMIA, UNSPECIFIED IRON DEFICIENCY ANEMIA TYPE STATUS POST BARIATRIC SURGERY PRIMARY INSOMNIA VITAMIN D DEFICIENCY VITAMIN B12 DEFICIENCY NECK PAIN ALLERGIES BACTRIM DS: RASH/FEVER - ALLERGY BACLOFEN: CONFUSION - SIDE EFFECTS SURGICAL HISTORY GASTRIC BY PASS 2005 C- SECTION X2 2007,2011 FAMILY HISTORY FATHER: ALIVE, HISTORY UNKNOWN MOTHER: ALIVE, ANXIETY. DDD, DIAGNOSED WITH OTHER SPECIFIED CONDITIONS INFLUENCING HEALTH STATUS, HYPERTENSION SIBLINGS: ALIVE SON(S): ALIVE DAUGHTER(S): ALIVE SOCIAL HISTORY GENERAL: TOBACCO USE ARE YOU A:NONSMOKER OTHERS AT HOME: MOTHER, SISTER AND CHILDREN. EDUCATION LEVEL OF EDUCATION:FINISHED HIGH SCHOOL DIET: NONE. LANGUAGE DANISH. DOMESTIC VIOLENCE DO YOU FEEL SAFE IN YOUR ENVIRONMENT?YES RECREATIONAL DRUG USE DRUG USE? NO. EXERCISE: WALKS DAILY. LEARNING BARRIERS / SPECIAL NEEDS BARRIERS TO LEARNING?NO HEARING IMPAIRED?NO VISION IMPAIRED?YES COGNITIVELY IMPAIRED?NO :CORRECTIVE LENSES READINESS TO LEARN?YES LEARNING PREFERENCES?NO LEARNING CAPABILITIES PRESENT?YES EMOTIONAL BARRIERS?NO SPECIAL DEVICES?NO WIRE HARNESS ASSEMBLER NEEDED?NO PAIN CLINIC PFS, CLERGY, PUBLIC HEALTH REFERRALS PFS REFERRAL NEEDED?NO CLERGY REFERRAL NEEDED?NO PUBLIC HEALTH REFERRAL NEEDED?NO WAS THE PROVIDER NOTIFIED OF ANY PERTINENT INFO?NO HAS THE PATIENT BEEN EDUCATED REGARDING HIS/HER PLAN OF CARE?YES HAS THE PATIENT BEEN EDUCATED REGARDING PAIN, THE RISK FOR PAIN, THE IMPORTANCE OF EFFECTIVE PAIN MANAGEMENT, AND THE PAIN ASSESSMENT PROCESS?YES LATEX QUESTIONNAIRE LATEX ALLERGY : HAVE YOU EVER DEVELOPED ANY TYPE OF REACTION AFTER HANDLING LATEX PRODUCTS SUCH RUBBER GLOVES, CONDOMS, DIAPHRAGMS, BALLOONS, SOCKS, OR UNDERWEAR?NO LATEX ALLERGY : HAVE YOU EVER DEVELOPED ANY TYPE OF REACTION DURING OR AFTER DENTAL APPOINTMENT, VAGINAL/RECTAL EXAMINATION, SURGICAL PROCEDURE, OR ANY OTHER EXPOSURE?NO DATE ASKED : 05/09/2019 LATEX RISK : HAVE YOU EVER HAD ANY DIFFICULTY BREATHING OR HIVES AFTER EATING OR HANDLING ANY FRUITS, OR VEGETABLES; SUCH KIWI, BANANAS, STONE FRUITS, OR CHESTNUTSNO LATEX RISK : DO YOU HAVE A PREVIOUS PERSONAL HISTORY OF MORE THAN NINE SURGERIES, SPINA BIFIDA, OR REPEATED CATHERIZATIONS? NO LATEX RISK : ARE YOU FREQUENTLY EXPOSED TO LATEX PRODUCTS IN YOUR OCCUPATION?NO CAFFEINE CAFFEINE USE? NO. ADVANCE DIRECTIVE ADVANCE DIRECTIVE DISCUSSED WITH PATIENT:YES PT DOES NOT HAVE ANY ADVANCED DIRECTIVES AND SHE DECLINED INFORMATION ON HCP AT THIS TIME. DRUZE NO PREFERENCE. MARITAL STATUS: . ALCOHOL SCREENING DID YOU HAVE A DRINK CONTAINING ALCOHOL IN THE PAST YEAR?NO POINTS0 INTERPRETATIONNEGATIVE REVIEWED WITH PATIENT 08/09/18 1411 JS. HOSPITALIZATION/MAJOR DIAGNOSTIC PROCEDURE SURGERIES LISTED ONLY HOSPITALIZATIONS AMS 06/2018 REVIEW OF SYSTEMS REVIEWED BY: PROVIDER: STEPHEN BASS . CONSTITUTIONAL: ANY CHANGE IN YOUR MEDICAL CONDITION? NO . CHILLS NO . FEVER NO . INFECTION: DO YOU HAVE NEW INFECTIONS? NO . DO YOU HAVE HISTORY OF MRSA? NO . MUSCULOSKELETAL: ANY NEW PATTERNS OF PAIN OR NUMBNESS? NO . GASTROENTEROLOGY: ANY NEW CHANGE IN BOWEL CONTROL? NO . GENITOURINARY: ANY NEW CHANGE IN BLADDER CONTROL? NO . IS THERE A CHANCE YOU COULD BE ? NO . HEMATOLOGY/LYMPH: DO YOU TAKE ANY BLOOD THINNERS? (FOR EXAMPLE- COUMADIN, PLAVIX, AGGRENOX, PLATEL, PRADAXA, OR XARELTO) NO . WHEN WAS YOUR LAST DOSE? DATE: TIME: . NEUROLOGY: HAVE YOU FALLEN IN THE PAST 12 MONTHS? NO . ANY NEW EXTREMITY NUMBNESS OR WEAKNESS? NO . CARDIOLOGY: DO YOU HAVE A PACEMAKER OR DEFIBRILLATOR? NO . RESPIRATORY: HAVE YOU BEEN SICK IN THE PAST WEEK? NO . FEVER NO . FLU LIKE SYMPTOMS? NO . COUGH NO . INTEGUMENTARY: DO YOU HAVE ANY RASHES OR OPEN SORES? NO . ALLERGIC/IMMUNO: ARE YOU ALLERGIC TO IV DYE? NO . ANY NEW ALLERGIES? NO . PSYCHIATRIC: DO YOU HAVE THOUGHTS OF HURTING YOURSELF OR SOMEONE ELSE? NO . ARE YOU ABUSED, NEGLECTED, OR IN AN UNSAFE ENVIRONMENT? NO . ENDOCRINOLOGY: ARE YOU DIABETIC? NO . OTHER: DO YOU NEED ANY PRESCRIPTIONS? NO . IF YES, PLEASE LIST: ____ . ANY NEW PROBLEMS WITH YOUR MEDICATIONS? NO . WHEN DID YOU LAST EAT? ____ . WHEN DID YOU LAST DRINK? ____ . WHAT DID YOU LAST DRINK? ____ . NAME OF PERSON DRIVING YOU HOME? ____ . DO YOU HAVE ANY OTHER QUESTIONS OR CONCERNS NO . VITAL SIGNS WT 196.6 LBS, HT 65 IN, BMI 32.71 INDEX, BP 188/79 MM HG, HR 130 /MIN, RR 18 /MIN, TEMP 97.0 F, OXYGEN SAT % 97%, SAFE IN ENV? (Y/N) Y, NA INITIALS AW 1329, REVIEWED BY: KG. EXAMINATION GENERAL EXAMINATION: GENERALNO ACUTE DISTRESS, WELL NOURISHED AND HYDRATED. PSYCHAPPROPRIATE MOOD AND AFFECT . NECK: POINT TENDER RIGHT NECK, AND TRAPEZIUS, SURROUNDING SKIN SHOWS NO ERYTHEMA, ECCHYMOSIS, INCREASED WARMTH, AND/OR SKIN ERUPTIONS NOTED. . LUNGS:CLEAR TO AUSCULTATION BILATERALLY, NO WHEEZES, RHONCHI, RALES. HEART:NO MURMURS, REGULAR RATE AND RHYTHM. ASSESSMENTS MYALGIA, OTHER SITE - M79.18 (PRIMARY) MYALGIA OF MUSCLE OF NECK - M79.18 TREATMENT MYALGIA, OTHER SITE STOP TIZANIDINE HCL TABLET, 4 MG, 1 TABLET NEEDED, ORALLY, BEFORE BEDTIME CLINICAL NOTES: 39-YEAR-OLD FEMALE IN FOR CHRONIC PAIN FOLLOW-UP. GIVEN PRESENTING SYMPTOMS AND RESULTS OF PHYSICAL EXAMINATION RECOMMENDED TPI OF THE RIGHT NECK AND SHOULDER WITH POSTPROCEDURAL FOLLOW-UP. FURTHER RECOMMENDED CONTINUATION OF CURRENT MEDICATIONS. PATIENT HAS EXPRESSED UNDERSTANDING OF AND WAS IN AGREEMENT WITH TREATMENT PLAN. GIVEN TIME TO ASK QUESTIONS AND EXPRESS CONCERNS., ISTOP REGISTRY REVIEWED AND DEMONSTRATES COMPLLIANCE. (REF # [id number] ) BRINGS IN MEDICATIONS WHICH IS APPROPRIATE FOR WHAT WAS DISPENSED. RECENT URINE TOXICOLOGY REVIEWED. NO UNAUTHORIZED MEDICATIONS. NO ILLICIT SUBSTANCES AND PRESCRIBED MEDICATIONS WERE PRESENT. MYALGIA OF MUSCLE OF NECK REFILL BACLOFEN TABLET, 20 MG, 1 TABLET WITH FOOD OR MILK, ORALLY, EVERY 8 HRS, 30 DAY(S), 90 TABLET, REFILLS 0 PROCEDURE CODES FA211 ESTABILISHED PATIENT [facility] CHARGE DISPOSITION & COMMUNICATION FOLLOW UP POSTPROCEDURE (REASON: TPI OF THE RIGHT NECK AND SHOULDER) ELECTRONICALLY SIGNED BY URSULA TOBIN ON 10/18/2019 AT 09:10 AM EST DISCLAIMER : THIS IS A VISIT SUMMARY EXTRACTED FROM THE [employer] CHART. IT IS NOT A COPY OF THE [employer] PROGRESS NOTE. CLARISSA
== END ==
LOC: M PAIN 13:30
PROVIDERS: ATTEND Family Medicine
DX: M79.18 Myalgia, other site (principal); D50.9 Iron deficiency anemia, unspecified; Z98.84 Bariatric surgery status; F51.01 Primary insomnia; Z88.1 Allergy status to other antibiotic agents; Z88.8 Allergy status to other drugs, medicaments and biological substances; Z79.899 Other long term (current) drug therapy

== ENCOUNTER 2020-01-06 09:23 | Emergency (ER) | payer OTHER ==
[~2020-01-06] VITALS: Ht 162.6 cm; Wt 85.5 kg
[~2020-01-06 09:23] MED LIST changes: -TRAZ-163 PO; +TRAZ-257 PO
[2020-01-06 10:44] LABS: BASO % 0.7 % (0.0-1.0); EOS % 0.2 % (0.0-3.0); HEMATOCRIT 28.8 % (36.0-47.0); LYMPH # 1.1 10^3/uL (1.5-5.0); MEAN CORPUSCULAR HEMOGLOBIN 19.5 pg (27.0-33.0); MEAN CORPUSCULAR HGB CONC 27.8 g/dl (32.0-36.5); MEAN CORPUSCULAR VOLUME 70.2 fl (80.0-96.0); MONO # 0.3 10^3/uL (0.0-0.8); MONO % 4.3 % (0.0-5.0); NEUTROPHILS # 4.5 10^3/uL (1.5-8.5); NEUTROPHILS % 76.5 % (36.0-66.0); PLATELET COUNT, AUTOMATED 380 10^3/uL (150-450); WHITE BLOOD COUNT 5.8 10^3/uL (4.0-10.0)
[2020-01-06] MEDS ORDERED: ONDA4TAB6 PO (10:57)
[2020-01-06 11:04] VITALS: BP 163/72
== END 2020-01-06 11:05 | disposition home or self-care (01) ==
LOC: M ED 09:23
DX: D64.9 Anemia, unspecified (principal); Z88.2 Allergy status to sulfonamides; Z88.8 Allergy status to other drugs, medicaments and biological substances

== ENCOUNTER → 2020-01-18 | Outpatient (CLI) | payer OTHER ==
[~2020-01-18] MED LIST changes: +ONDA4TAB6 PO
--- NOTE | 2020-01-24 03:23 | ECWPNPC ---
PATIENT NAME: OBED ANDERSON : 1980 GENDER: FEMALE VISIT DATE: 01/18/2020 DISCHARGE DATE: 01/18/20 1444 VISIT LOCKED DATE TIME: PHYSICIAN: KATE SEBASTIAN RESOURCE: KATE SEBASTIAN REASON FOR APPOINTMENT 1. NURSING VISIT HISTORY OF PRESENT ILLNESS HISTORY OF PRESENT ILLNESS: PAIN THE PATIENT DESCRIBES THE PAIN... FALL RISK SCREENING: SCREENING :NO FALLS REPORTED IN THE LAST YEAR CURRENT MEDICATIONS TAKING FERROUS SULFATE 325 (65 FE) MG TABLET 1 TABLET WITH MEAL ORALLY QID TAKING COLACE 100 MG CAPSULE 1 -2 CAPSULES NEEDED ORALLY ONCE A DAY TAKING TRAMADOL HCL 50 MG TABLET 1-2 TAB ORALLY Q8H PRN MDD6 TAKING BACLOFEN 20 MG TABLET 1 TABLET WITH FOOD OR MILK ORALLY EVERY 8 HRS TAKING TYLENOL PM EXTRA STRENGTH NOT-TAKING OMEPRAZOLE 40 MG CAPSULE DELAYED RELEASE 1 CAPSULE BEFORE MEAL ORALLY ONCE A DAY NOT-TAKING VITAMIN D 1000 UNIT TABLET 1 TABLET ORALLY ONCE A DAY NOT-TAKING TRAZODONE HCL 100 MG TABLET 1 TABLET AT BEDTIME ORALLY ONCE A DAY NOT-TAKING LORATADINE 10 MG TABLET 1 TABLET ORALLY ONCE A DAY MEDICATION LIST REVIEWED AND RECONCILED WITH THE PATIENT PAST MEDICAL HISTORY GASTROESOPHAGEAL REFLUX DISEASE, ESOPHAGITIS PRESENCE NOT SPECIFIED IRON DEFICIENCY ANEMIA, UNSPECIFIED IRON DEFICIENCY ANEMIA TYPE STATUS POST BARIATRIC SURGERY PRIMARY INSOMNIA VITAMIN D DEFICIENCY VITAMIN B12 DEFICIENCY NECK PAIN ALLERGIES BACTRIM DS: RASH/FEVER - ALLERGY BACLOFEN: CONFUSION - SIDE EFFECTS SURGICAL HISTORY GASTRIC BY PASS 2005 C- SECTION X2 2007,2011 FAMILY HISTORY FATHER: ALIVE, HISTORY UNKNOWN MOTHER: ALIVE, ANXIETY. DDD, DIAGNOSED WITH HYPERTENSION, OTHER SPECIFIED CONDITIONS INFLUENCING HEALTH STATUS SIBLINGS: ALIVE SON(S): ALIVE DAUGHTER(S): ALIVE SOCIAL HISTORY GENERAL: TOBACCO USE ARE YOU A:NONSMOKER OTHERS AT HOME: MOTHER, SISTER AND CHILDREN. EDUCATION LEVEL OF EDUCATION:FINISHED HIGH SCHOOL DIET: NONE. LANGUAGE KYRGYZ. DOMESTIC VIOLENCE DO YOU FEEL SAFE IN YOUR ENVIRONMENT?YES RECREATIONAL DRUG USE DRUG USE? NO. EXERCISE: WALKS DAILY. LEARNING BARRIERS / SPECIAL NEEDS BARRIERS TO LEARNING?NO HEARING IMPAIRED?NO VISION IMPAIRED?YES COGNITIVELY IMPAIRED?NO :CORRECTIVE LENSES READINESS TO LEARN?YES LEARNING PREFERENCES?NO LEARNING CAPABILITIES PRESENT?YES EMOTIONAL BARRIERS?NO SPECIAL DEVICES?NO CYCLE SPECIALIST NEEDED?NO PAIN CLINIC PFS, CLERGY, PUBLIC HEALTH REFERRALS PFS REFERRAL NEEDED?NO CLERGY REFERRAL NEEDED?NO PUBLIC HEALTH REFERRAL NEEDED?NO WAS THE PROVIDER NOTIFIED OF ANY PERTINENT INFO?NO HAS THE PATIENT BEEN EDUCATED REGARDING HIS/HER PLAN OF CARE?YES HAS THE PATIENT BEEN EDUCATED REGARDING PAIN, THE RISK FOR PAIN, THE IMPORTANCE OF EFFECTIVE PAIN MANAGEMENT, AND THE PAIN ASSESSMENT PROCESS?YES LATEX QUESTIONNAIRE LATEX ALLERGY : HAVE YOU EVER DEVELOPED ANY TYPE OF REACTION AFTER HANDLING LATEX PRODUCTS SUCH RUBBER GLOVES, CONDOMS, DIAPHRAGMS, BALLOONS, SOCKS, OR UNDERWEAR?NO LATEX ALLERGY : HAVE YOU EVER DEVELOPED ANY TYPE OF REACTION DURING OR AFTER DENTAL APPOINTMENT, VAGINAL/RECTAL EXAMINATION, SURGICAL PROCEDURE, OR ANY OTHER EXPOSURE?NO DATE ASKED : 05/09/2019 LATEX RISK : HAVE YOU EVER HAD ANY DIFFICULTY BREATHING OR HIVES AFTER EATING OR HANDLING ANY FRUITS, OR VEGETABLES; SUCH KIWI, BANANAS, STONE FRUITS, OR CHESTNUTSNO LATEX RISK : DO YOU HAVE A PREVIOUS PERSONAL HISTORY OF MORE THAN NINE SURGERIES, SPINA BIFIDA, OR REPEATED CATHERIZATIONS? NO LATEX RISK : ARE YOU FREQUENTLY EXPOSED TO LATEX PRODUCTS IN YOUR OCCUPATION?NO CAFFEINE CAFFEINE USE? NO. ADVANCE DIRECTIVE ADVANCE DIRECTIVE DISCUSSED WITH PATIENT:YES PT DOES NOT HAVE ANY ADVANCED DIRECTIVES AND SHE DECLINED INFORMATION ON HCP AT THIS TIME. BUDDHISM NO PREFERENCE. MARITAL STATUS: . ALCOHOL SCREENING DID YOU HAVE A DRINK CONTAINING ALCOHOL IN THE PAST YEAR?NO POINTS0 INTERPRETATIONNEGATIVE REVIEWED WITH PATIENT 08/09/18 1411 JS. HOSPITALIZATION/MAJOR DIAGNOSTIC PROCEDURE SURGERIES LISTED ONLY HOSPITALIZATIONS AMS 06/2018 REVIEW OF SYSTEMS REVIEWED BY: PROVIDER: STEPHEN BASS . CONSTITUTIONAL: ANY CHANGE IN YOUR MEDICAL CONDITION? NO . CHILLS NO . FEVER NO . INFECTION: DO YOU HAVE NEW INFECTIONS? NO . DO YOU HAVE HISTORY OF MRSA? NO . MUSCULOSKELETAL: ANY NEW PATTERNS OF PAIN OR NUMBNESS? NO . GASTROENTEROLOGY: ANY NEW CHANGE IN BOWEL CONTROL? NO . GENITOURINARY: ANY NEW CHANGE IN BLADDER CONTROL? NO . IS THERE A CHANCE YOU COULD BE ? NO . HEMATOLOGY/LYMPH: DO YOU TAKE ANY BLOOD THINNERS? (FOR EXAMPLE- COUMADIN, PLAVIX, AGGRENOX, PLATEL, PRADAXA, OR XARELTO) NO . WHEN WAS YOUR LAST DOSE? DATE: TIME: . NEUROLOGY: HAVE YOU FALLEN IN THE PAST 12 MONTHS? NO . ANY NEW EXTREMITY NUMBNESS OR WEAKNESS? NO . CARDIOLOGY: DO YOU HAVE A PACEMAKER OR DEFIBRILLATOR? NO . RESPIRATORY: HAVE YOU BEEN SICK IN THE PAST WEEK? NO . FEVER NO . FLU LIKE SYMPTOMS? NO . COUGH NO . INTEGUMENTARY: DO YOU HAVE ANY RASHES OR OPEN SORES? YES BOTTOM LEFT HIP HYRPES . ALLERGIC/IMMUNO: ARE YOU ALLERGIC TO IV DYE? NO . ANY NEW ALLERGIES? NO . PSYCHIATRIC: DO YOU HAVE THOUGHTS OF HURTING YOURSELF OR SOMEONE ELSE? NO . ARE YOU ABUSED, NEGLECTED, OR IN AN UNSAFE ENVIRONMENT? NO . ENDOCRINOLOGY: ARE YOU DIABETIC? NO . OTHER: DO YOU NEED ANY PRESCRIPTIONS? NO . IF YES, PLEASE LIST: ____ . ANY NEW PROBLEMS WITH YOUR MEDICATIONS? NO . WHEN DID YOU LAST EAT? ____ . WHEN DID YOU LAST DRINK? ____ . WHAT DID YOU LAST DRINK? ____ . NAME OF PERSON DRIVING YOU HOME? ____ . DO YOU HAVE ANY OTHER QUESTIONS OR CONCERNS NO . VITAL SIGNS WT 183.8 LBS, HT 65 IN, BMI 30.58 INDEX, BP 135/61 MM HG, HR 86 /MIN, RR 18 /MIN, TEMP 97.1 F, OXYGEN SAT % 100%, NA INITIALS MS 1335. ASSESSMENTS CHRONIC USE OF OPIATE DRUG FOR THERAPEUTIC PURPOSE - Z79.891 (PRIMARY) TREATMENT CHRONIC USE OF OPIATE DRUG FOR THERAPEUTIC PURPOSE CLINICAL NOTES: UTOX ORDERS. DISPOSITION & COMMUNICATION ELECTRONICALLY SIGNED BY URSULA TOBIN ON 01/23/2020 AT 08:49 AM EDT DISCLAIMER : THIS IS A VISIT SUMMARY EXTRACTED FROM THE [employer] CHART. IT IS NOT A COPY OF THE [employer] PROGRESS NOTE. CLARISSA
== END ==
LOC: M PAIN 13:30
PROVIDERS: ATTEND Family Medicine
DX: M79.18 Myalgia, other site (principal); D50.9 Iron deficiency anemia, unspecified; F51.01 Primary insomnia; Z98.84 Bariatric surgery status; Z88.1 Allergy status to other antibiotic agents; Z88.8 Allergy status to other drugs, medicaments and biological substances; Z79.891 Long term (current) use of opiate analgesic; Z79.899 Other long term (current) drug therapy

== ENCOUNTER → 2020-04-30 | Outpatient (CLI) | payer OTHER ==
[~2020-04-30] MED LIST changes: +CYCL-707 PO; -CYCL10TA PO
--- NOTE | 2020-05-01 23:29 | ECWPNPC ---
PATIENT NAME: OEBD ANDERSON : 1980 GENDER: FEMALE VISIT DATE: 04/30/2020 DISCHARGE DATE: 04/30/20 1049 VISIT LOCKED DATE TIME: PHYSICIAN: KATE SEBASTIAN RESOURCE: KATE SEBASTIAN REASON FOR APPOINTMENT 1. SHOULDER AND LOWER BACK PAIN VIA ZOOM [id number] [employer] II.COM PAT DONE HISTORY OF PRESENT ILLNESS GENERAL: -PERMISSION REQUESTED AND RECEIVED FROM PATIENT TO PERFORM TELEHEALTH VISIT. 39-YEAR-OLD FEMALE IN FOR CHRONIC PAIN FOLLOW-UP. SHE RATES HER PAIN CURRENTLY AT A 6 OUT OF 10 AND DESCRIBES IT THROBBING. SHE FEELS HER MEDICATIONS ARE HELPFUL AND DENIES MED SIDE EFFECTS AT THIS TIME. FALL RISK SCREENING: SCREENING :NO FALLS REPORTED IN THE LAST YEAR PAIN SCREENING: PATIENT HAS A COMPLAINT OF ACUTE OR CHRONIC PAIN :YES LOCATION OF PAIN:RIGHT SHOULDER, LOW BACK INTENSITY OF PAIN (SCALE OF 1 TO 10):6 WHAT DOES YOUR PAIN FEEL LIKE:ACHING DURATION:ONLY WITH SPECIFIC ACTIVITIES PAIN IS INCREASED BY:ACTIVITIES, PROLONGED STANDING PAIN IS DECREASED BY:USE OF PAIN MEDICATIONS, SITTING TRAMADOL LEVEL OF RELIEF FROM PAIN TREATMENTS IN THE PAST:50% PAIN HAS INTERFERED WITH THE FOLLOWING:MOOD, HOUSEWORK, RELATIONSHIP WITH OTHERS, ENJOYMENT OF LIFE PLAN/GOALS/TREATMENT/INTERVENTION/FOLLOW UP:SEE PLAN NURSING NOTE: -. PAIN CENTER INTAKE QUESTIONS: DO YOU HAVE A HISTORY OF MRSA? :NO DO YOU TAKE A BLOOD THINNERS? :NO DO YOU HAVE ANY BLEEDING DISORDERS? :NO ANY NEW NUMBNESS OR WEAKNESS IN YOUR LEGS OR ARMS? :NO ANY PACEMAKER,DEFIBRILLATOR, OR DORSAL COLUMN STIMULATOR? :NO DO YOU HAVE ANY RASHES OR OPEN SORES? :NO ARE YOU ALLERGIC TO IV DYE? :NO ARE YOU DIABETIC? :NO ANY NEW PROBLEMS WITH YOUR MEDICATIONS? :NO HAVE YOU RECEIVED A VACCINE IN THE PAST 30 DAYS? :NO DO YOU PLAN TO RECEIVE A VACCINE IN THE NEXT 21 DAYS? :NO DO YOU NEED ANY PRESCRIPTION? :YES TRAMADOL DO YOU TAKE ANY IMMUNOSUPPRESSIVE MEDICATIONS? :NO IS THERE A CHANCE YOU COULD BE ? :NO ARE YOU BREAST FEEDING? :NO CURRENT MEDICATIONS TAKING FERROUS SULFATE 325 (65 FE) MG TABLET 1 TABLET WITH MEAL ORALLY QID TAKING COLACE 100 MG CAPSULE 1 -2 CAPSULES NEEDED ORALLY ONCE A DAY TAKING TYLENOL PM EXTRA STRENGTH TAKING TRAMADOL HCL 50 MG TABLET 1-2 TAB ORALLY Q8H PRN MDD6 TAKING BACLOFEN 20 MG TABLET 1 TABLET WITH FOOD OR MILK ORALLY EVERY 8 HRS NOT-TAKING OMEPRAZOLE 40 MG CAPSULE DELAYED RELEASE 1 CAPSULE BEFORE MEAL ORALLY ONCE A DAY NOT-TAKING VITAMIN D 1000 UNIT TABLET 1 TABLET ORALLY ONCE A DAY NOT-TAKING TRAZODONE HCL 100 MG TABLET 1 TABLET AT BEDTIME ORALLY ONCE A DAY NOT-TAKING LORATADINE 10 MG TABLET 1 TABLET ORALLY ONCE A DAY MEDICATION LIST REVIEWED AND RECONCILED WITH THE PATIENT PAST MEDICAL HISTORY GASTROESOPHAGEAL REFLUX DISEASE, ESOPHAGITIS PRESENCE NOT SPECIFIED IRON DEFICIENCY ANEMIA, UNSPECIFIED IRON DEFICIENCY ANEMIA TYPE STATUS POST BARIATRIC SURGERY PRIMARY INSOMNIA VITAMIN D DEFICIENCY VITAMIN B12 DEFICIENCY NECK PAIN ALLERGIES BACTRIM DS: RASH/FEVER - ALLERGY BACLOFEN: CONFUSION - SIDE EFFECTS SURGICAL HISTORY GASTRIC BY PASS 2004 C- SECTION X2 2007,2011 FAMILY HISTORY FATHER: ALIVE, HISTORY UNKNOWN MOTHER: ALIVE, ANXIETY. DDD, DIAGNOSED WITH OTHER SPECIFIED CONDITIONS INFLUENCING HEALTH STATUS, HYPERTENSION SIBLINGS: ALIVE SON(S): ALIVE DAUGHTER(S): ALIVE SOCIAL HISTORY GENERAL: TOBACCO USE ARE YOU A:NONSMOKER LATEX QUESTIONNAIRE LATEX ALLERGY : HAVE YOU EVER DEVELOPED ANY TYPE OF REACTION AFTER HANDLING LATEX PRODUCTS SUCH RUBBER GLOVES, CONDOMS, DIAPHRAGMS, BALLOONS, SOCKS, OR UNDERWEAR?NO LATEX ALLERGY : HAVE YOU EVER DEVELOPED ANY TYPE OF REACTION DURING OR AFTER DENTAL APPOINTMENT, VAGINAL/RECTAL EXAMINATION, SURGICAL PROCEDURE, OR ANY OTHER EXPOSURE?NO LATEX RISK : HAVE YOU EVER HAD ANY DIFFICULTY BREATHING OR HIVES AFTER EATING OR HANDLING ANY FRUITS, OR VEGETABLES; SUCH KIWI, BANANAS, STONE FRUITS, OR CHESTNUTSNO LATEX RISK : DO YOU HAVE A PREVIOUS PERSONAL HISTORY OF MORE THAN NINE SURGERIES, SPINA BIFIDA, OR REPEATED CATHERIZATIONS? NO LATEX RISK : ARE YOU FREQUENTLY EXPOSED TO LATEX PRODUCTS IN YOUR OCCUPATION?NO DATE ASKED : 04/30/2020 ALCOHOL SCREENING DID YOU HAVE A DRINK CONTAINING ALCOHOL IN THE PAST YEAR?NO POINTS0 INTERPRETATIONNEGATIVE RECREATIONAL DRUG USE DRUG USE? NO. CAFFEINE CAFFEINE USE? NO. CONGREGATIONAL NO PREFERENCE. LANGUAGE MOLDOV[place]. EDUCATION LEVEL OF EDUCATION:FINISHED HIGH SCHOOL LEARNING BARRIERS / SPECIAL NEEDS BARRIERS TO LEARNING?NO HEARING IMPAIRED?NO VISION IMPAIRED?YES COGNITIVELY IMPAIRED?NO :CORRECTIVE LENSES READINESS TO LEARN?YES LEARNING PREFERENCES?NO LEARNING CAPABILITIES PRESENT?YES EMOTIONAL BARRIERS?NO SPECIAL DEVICES?NO DRAPERY WORKER NEEDED?NO DOMESTIC VIOLENCE DO YOU FEEL SAFE IN YOUR ENVIRONMENT?YES DIET: NONE. EXERCISE: WALKS DAILY. MARITAL STATUS: . OTHERS AT HOME: MOTHER, SISTER AND CHILDREN. PAIN CLINIC PFS, CLERGY, PUBLIC HEALTH REFERRALS PFS REFERRAL NEEDED?NO CLERGY REFERRAL NEEDED?NO PUBLIC HEALTH REFERRAL NEEDED?NO WAS THE PROVIDER NOTIFIED OF ANY PERTINENT INFO?NO HAS THE PATIENT BEEN EDUCATED REGARDING HIS/HER PLAN OF CARE?YES HAS THE PATIENT BEEN EDUCATED REGARDING PAIN, THE RISK FOR PAIN, THE IMPORTANCE OF EFFECTIVE PAIN MANAGEMENT, AND THE PAIN ASSESSMENT PROCESS?YES ADVANCE DIRECTIVE ADVANCE DIRECTIVE DISCUSSED WITH PATIENT:YES PT DOES NOT HAVE ANY ADVANCED DIRECTIVES AND SHE DECLINED INFORMATION ON HCP AT THIS TIME. HOSPITALIZATION/MAJOR DIAGNOSTIC PROCEDURE SURGERIES LISTED ONLY HOSPITALIZATIONS AMS 06/2018 REVIEW OF SYSTEMS CONSTITUTIONAL: ANY RECENT FEVER NO . CHILLS NO . WEIGHT CHANGE OF UNKNOWN REASONS NO . GASTROENTEROLOGY: NEW UNEXPLAINABLE CHANGES IN BOWEL CONTROL NO . CONSTIPATION NO . GENITOURINARY: ANY NEW CHANGE IN BLADDER CONTROL? NO . NEUROLOGY: NEW ONSET DIZZINESS OR NEUROLOGICAL CHANGES NOT MENTIONED NO . NEW NUMBNESS OR PAIN PATTERNS NOT MENTIONED AND PERTINENT TO TODAY'S VISIT NO . CARDIOLOGY: NEW CHEST PRESSURE NO . NEW CHEST PAIN NO . RESPIRATORY: UNEXPLAINABLE COUGH NO . NEW SHORTNESS OF BREATH NO . EXAMINATION GENERAL EXAMINATION: GENERALNO ACUTE DISTRESS, WELL NOURISHED AND HYDRATED. PSYCHAPPROPRIATE MOOD AND AFFECT , ORIENTED X 3. ASSESSMENTS CHRONIC RIGHT SHOULDER PAIN - M25.511 (PRIMARY) TREATMENT CHRONIC RIGHT SHOULDER PAIN CLINICAL NOTES: 39-YEAR-OLD FEMALE IN FOR CHRONIC PAIN FOLLOW-UP. GIVEN PRESENTING SYMPTOMS RECOMMEND FOLLOW-UP IN CLINIC TO DISCUSS POTENTIAL INJECTIONS. PATIENT HAS EXPRESSED UNDERSTANDING OF AND WAS IN AGREEMENT WITH TREATMENT PLAN. GIVEN TIME TO ASK QUESTIONS AND EXPRESS CONCERNS. , ISTOP REGISTRY REVIEWED AND DEMONSTRATES COMPLLIANCE. (REF # [id number] ) BRINGS IN MEDICATIONS WHICH IS APPROPRIATE FOR WHAT WAS DISPENSED. RECENT URINE TOXICOLOGY REVIEWED. NO UNAUTHORIZED MEDICATIONS. NO ILLICIT SUBSTANCES AND PRESCRIBED MEDICATIONS WERE PRESENT. TELEHEALTH VISIT CONDUCTED VIA ZOOM. TIME SPENT WITH PATIENT 7 MINUTES. OTHERS NOTES: VITALS NOT OBTAINED DUE TO VIRTUAL VISIT, PRE-SCREENING COMPLETED, 04/30/20, NA. DISPOSITION & COMMUNICATION FOLLOW UP MAY 13 (REASON: SHOULDER AND BACK PAIN) ELECTRONICALLY SIGNED BY URSULA TOBIN ON 05/01/2020 AT 08:08 AM EDT DISCLAIMER : THIS IS A VISIT SUMMARY EXTRACTED FROM THE [employer] CHART. IT IS NOT A COPY OF THE [employer] PROGRESS NOTE. MTDD
== END ==
LOC: M TMPAIN 10:00 → M PAIN 10:00
PROVIDERS: ATTEND Family Medicine
DX: M25.511 Pain in right shoulder (principal)

== ENCOUNTER 2020-06-08 16:49 | Emergency (ER) | payer OTHER ==
[2020-06-08] MEDS ORDERED: KETAMINE HCL 200 MG/20 ML VIAL ONE (18:05)
[2020-06-08] MEDS ORDERED: MORPHINE 4 MG/ML 1ML VIAL/SYRINGE (J2270) As Ordered ONE (18:05)
[2020-06-08] MEDS ORDERED: NORCO, ANEXSIA 5/325MG TABLET (HYDROcodone/ACETAMINOPHEN) ONE (18:05)
[2020-06-08] MEDS ORDERED: MORPHINE 4 MG/ML 1ML VIAL/SYRINGE (J2270) ONE (18:05)
[2020-06-08] MEDS ORDERED: propofoL 200 MG/20 ML VIAL ONE (18:05)
[2020-06-08] MEDS ORDERED: ONDANSETRON 4MG/2ML VIAL As Ordered ONE (18:05)
[2020-06-08] MEDS ORDERED: ONDANSETRON 4MG/2ML VIAL ONE (18:05)
[2020-06-08] MEDS ORDERED: propofoL 200 MG/20 ML VIAL As Ordered ONE (18:23)
[2020-06-08] MEDS ORDERED: KETAMINE HCL 200 MG/20 ML VIAL As Ordered ONE (18:23)
[2020-06-08] MEDS ORDERED: NORCO, ANEXSIA 5/325MG TABLET (HYDROcodone/ACETAMINOPHEN) As Ordered ONE (19:34)
[2020-07-14 21:36] LABS: HEMOGLOBIN 8.8 g/dl (12.0-15.5); MEAN CORPUSCULAR HGB CONC 28.4 g/dl (32.0-36.5); MEAN CORPUSCULAR VOLUME 70.3 fl (80.0-96.0); PLATELET COUNT, AUTOMATED 325 10^3/uL (150-450); RED BLOOD COUNT 4.41 10^6/uL (4.00-5.40); WHITE BLOOD COUNT 6.3 10^3/uL (4.0-10.0)
[2020-07-14 21:45] LABS: INR 0.96
[2020-08-18 11:49] LABS: BLOOD UREA NITROGEN 16 MG/DL (7-18); CALCIUM LEVEL 8.7 MG/DL (8.5-10.1); CARBON DIOXIDE LEVEL 25 MEQ/L (21-32); CHLORIDE LEVEL 112 MEQ/L (98-107); CREATININE FOR GFR 0.89 MG/DL (0.55-1.30); GLOMERULAR FILTRATION RATE > 60.0 (>60); GLUCOSE, FASTING 93 MG/DL (70-100); POTASSIUM SERUM 3.5 MEQ/L (3.5-5.1); SODIUM LEVEL 142 MEQ/L (136-145)
== END 2020-06-08 20:39 | disposition home or self-care (01) ==
LOC: M ED 16:49
DX: S52.591A Other fractures of lower end of right radius, initial encounter for closed fracture (principal); S52.611A Displaced fracture of right ulna styloid process, initial encounter for closed fracture; Y04.8XXA Assault by other bodily force, initial encounter; Y92.89 Other specified places as the place of occurrence of the external cause; D64.9 Anemia, unspecified; Z98.84 Bariatric surgery status; Z88.2 Allergy status to sulfonamides; Z79.899 Other long term (current) drug therapy
CPT/HCPCS: 25605; 73090; 73110; 80048; 85027; 85610; 85730; 86850; 86900; 86901; 96374; 96375; 99156; 99157; 99285; J2270; J2405

== ENCOUNTER → 2020-06-26 | Outpatient (CLI) | payer OTHER | LOC: M PAIN 08:15 | PROVIDERS: ATTEND Family Medicine | DX: M79.18 Myalgia, other site (principal) ==

== ENCOUNTER 2020-10-13 10:26 | Observation (INO) | payer OTHER ==
[~2020-10-13] VITALS: Ht 165.1 cm; Wt 82.0 kg
[2020-10-13] VITALS (11 sets, daily range): BP systolic 118–155; BP diastolic 62–82
[2020-10-13 11:16] LABS: BASO % 0.5 % (0.0-1.0); EOS % 0.5 % (0.0-3.0); HEMATOCRIT 25.7 % (36.0-47.0); LYMPH # 1.2 10^3/uL (1.5-5.0); LYMPH % 21.8 % (24.0-44.0); MEAN CORPUSCULAR HEMOGLOBIN 18.1 pg (27.0-33.0); MEAN CORPUSCULAR HGB CONC 25.7 g/dl (32.0-36.5); MEAN CORPUSCULAR VOLUME 70.4 fl (80.0-96.0); MONO # 0.4 10^3/uL (0.0-0.8); MONO % 6.3 % (0.0-5.0); NEUTROPHILS % 70.4 % (36.0-66.0); PLATELET COUNT, AUTOMATED 363 10^3/uL (150-450); RED BLOOD COUNT 3.65 10^6/uL (4.00-5.40); WHITE BLOOD COUNT 5.7 10^3/uL (4.0-10.0)
[2020-10-13 11:25] LABS: HEMOGLOBIN 6.6 g/dl (12.0-15.5)
[2020-10-13 11:42] LABS: ALBUMIN 3.3 GM/DL (3.2-5.2); ALT/SGPT 17 U/L (12-78); BILIRUBIN,DIRECT < 0.1 MG/DL (0.0-0.2); BILIRUBIN,TOTAL 0.2 MG/DL (0.2-1.0); BLOOD UREA NITROGEN 14 MG/DL (7-18); C REACTIVE PROTEIN QUANTITATIV 0.42 MG/DL (0.00-0.30); CALCIUM LEVEL 8.8 MG/DL (8.5-10.1); CARBON DIOXIDE LEVEL 28 MEQ/L (21-32); CHLORIDE LEVEL 111 MEQ/L (98-107); CREATININE FOR GFR 0.65 MG/DL (0.55-1.30); ERYTHROCYTE SEDIMENTATION RATE 84 mm/hr (0-20); GLOMERULAR FILTRATION RATE > 60.0 (>58); GLUCOSE, FASTING 82 MG/DL (70-100); POTASSIUM SERUM 3.7 MEQ/L (3.5-5.1); SODIUM LEVEL 143 MEQ/L (136-145); TOTAL PROTEIN 7.4 GM/DL (6.4-8.2)
[2020-10-13] MEDS ORDERED: GABA-1171 PO (11:51)
--- NOTE | 2020-10-13 11:53 | REP ---
INDICATION: post op complications. COMPARISON: Comparison radiographs June 08, 2020.. TECHNIQUE: Four views FINDINGS: There is moderate diffuse soft tissue swelling about the distal radius. There is lack of complete healing of the distal radial fracture. Screw plate fixation device is seen in place in the distal radius. There is irregular periosteal reaction along the screw plate device. An ununited ulnar styloid fracture is again noted. On the lateral radiograph there is a rounded area of radiolucency which could be erosive change. IMPRESSION: The findings are suspicious for osteomyelitis of the right distal radius with screw plate fixation device in place and incomplete fracture healing. Soft tissue swelling periosteal reaction and probable bony erosive changes are seen. <Electronically signed by Zaid Kulkarni > 10/13/20 [id number]
[2020-10-13] MEDS ORDERED: KETOROLAC 30 MG/ML 1ML VIAL IV ONE (12:15)
[2020-10-13] MEDS ORDERED: VANCOMYCIN HCL 1,000 MG, VIAL MATE ADAPTER 1 EACH in D5W 250 ML IV ONE (12:15)
[2020-10-13] MEDS ORDERED: VANCOMYCIN HCL 1,750 MG in D5W 250 ML IV ONE (12:15)
[2020-10-13] MEDS: NS 1,000 ML IV SCH (12:21)
[2020-10-13] MEDS ORDERED: ONDANSETRON 4MG/2ML VIAL IV ONE (12:30)
[2020-10-13] MEDS ORDERED: diphenhydrAMINE 50MG/ML VIAL (J1200) IV STA (13:01)
[2020-10-13] MEDS ORDERED: methylPREDNISolone 125MG 2ML VIAL IV ONE (13:15)
[2020-10-13] MEDS ORDERED: VANCOMYCIN HCL 750 MG, VIAL MATE ADAPTER 1 EACH in D5W 250 ML IV ONE (13:15)
[2020-10-13] MEDS ORDERED: FAMOTIDINE 20 MG TAB PO ONE (13:15)
[2020-10-13] MEDS ORDERED: TRAM50TA2 PO (13:59)
[2020-10-13] MEDS ORDERED: BACL1TAB9 PO (13:59)
[2020-10-13] MEDS ORDERED: KETOROLAC 30 MG/ML 1ML VIAL IV PRN (14:45)
--- NOTE | 2020-10-13 15:10 | HPEPDOC ---
General Date of Admission 10/13/20 Date of Service: Oct 13, 2020 Chief Complaint The patient is a 40-year-old female admitted with a reason for visit of Right Wrist Post Surgical Problem. Source: Patient History of Present Illness 40 year old female presented to ED for fatigued, and intermittent drainage from the surgical incision site at the right wrist for 1 week and increased pain at the wrist and hand and unable to move the fingers due to severe pain. Patient initially sustained right wrist fracture on 06/08/20 and underwent ORIF here however it did not heal so was referred to [facility] orthopedics for non healing fracture and underwent bone transplant and fixation with plate and screws on 08/08/20. In September she started having increased wrist pain so went to [place] [facility] and was diagnosed with Bone infection and she was put on 2 weeks of keflex. SHe then followed up with Dr Hanna her orthopedic surgeon at [facility] about 1 week into the antibiotic course and patient reported that he was not convinced that the bone was infected and told the patient could either finish the antibiotics or not finish it. Patient did finish the antibiotics 1 week ago last wednesday she noticed a bump in the incision line and went to [facility] ED . SHe had an US done there and a collection was seen which she was told was a hematoma . No antibiotics were prescribed. Then next day it burst open and patient reported that white pus came out . There was no blood. Today she complains of severe pain in her right wrist about 8/10 in intensity, sharp aching constant in nature and worsened by movement of the wrist and pain radiating int he 2 lateral fingers. Work up in the ED also showed severe anemia with Hb of 6.6. Wrist Xray : There is moderate diffuse soft tissue swelling about the distal radius. There is lack of complete healing of the distal radial fracture. Screw plate fixation device is seen in place in the distal radius. There is irregular periosteal reaction along the screw plate device. An ununited ulnar styloid fracture is again noted. On the lateral radiograph there is a rounded area of radiolucency which could be erosive change. [facility] was called by ED provider Lena Arreola but they refused to accept the patient even for ED to ED transfer as there is no space. She then called [facility] orthopedics and spoke with Dr Cancino and he advised to send the patient to office tomorrow as a walk in when Dr Hanna will be available and will be able to see her. Patient was admitted for symptomatic anemia and wrist osteomyelitis. Home Medications Scheduled Ferrous Sulfate (Iron) 325 Mg Tablet, 325 MG PO TID, (Reported) Gabapentin (Gabapentin) 100 Mg Capsule, 100 MG PO TID, (Reported) Scheduled PRN Acetaminophen/Diphenhydramine (Acetaminophen Pm Caplet) 1 Each Tablet, 1 TAB PO QHS PRN for SLEEP, (Reported) Baclofen (Baclofen) 20 Mg Tablet, 20 MG PO TID PRN for MUSCLE SPASMS, (Reported) Tramadol HCl (Tramadol HCl) 50 Mg Tablet, 100 MG PO Q8H PRN for PAIN, (Reported) Allergies Coded Allergies: Sulfa (Sulfonamide Antibiotics) (Verified Allergy, Intermediate, hives, 03/02/19) sulfamethoxazole (Verified Allergy, Intermediate, hives, 03/02/19) trimethoprim (Verified Allergy, Intermediate, hives, 03/02/19) Past Medical History Medical History Non healing right wrist fracture radius and ulna s/p donar bone tx on 08/08/20, Fracture sustained on 06/08/20 Chronic Anemia. Chronic back pain. Iron deficiency. Vit B12 def, Vit D def H/O morbid obesity s/p gastric bypass in 2009 Depression Surgical History Gastric bypass. 2. Family History Significant Family History: Hypertension (father) Mother stroke and depression Social History * Smoker: non-smoker Alcohol: rarely Drugs: denies A-FIB/CHADSVASC A-FIB History Current/History of A-Fib/PAF?: No Review of Systems Constitutional: Denies: Chills, Fever, Night Sweats Eyes: Denies: Pain, Vision change ENT: Denies: Head Aches, Ear Pain, Dysphagia Pulmonary: Denies: Dyspnea, Cough Cardiovascular: Denies: Chest Pain, Palpitations, Orthopnea, Paroxysmal Noc. Dyspnea, Lt Headedness Gastrointestinal: Denies: Nausea, Vomiting, Abdominal Pain, Diarrhea, Constipation, Melena, Hematochezia Genitourinary: Denies: Dysuria, Frequency, Incontinence, Retention Hematologic: Denies: Bruising, Bleeding Excessively Musculoskeletal: Reports: Hand Pain, Joint Pain; Denies: Neck Pain, Back Pain, Muscle Pain, Spasms Physical Examination General Exam: Positive: Alert, Cooperative, No Acute Distress Eye Exam: Positive: PERRLA, Conjunctiva & lids normal, EOMI; Negative: Sclera icteric ENT Exam: Positive: Atraumatic, Mucous membr. moist/pink, Pharynx Normal Neck Exam: Positive: Supple; Negative: JVD, thyromegaly Chest Exam: Positive: Clear to auscultation, Normal air movement Heart Exam: Positive: Rate Normal, Regular Rhythm, Normal S1, Normal S2; Negative: Murmurs, Rubs Abdomen Exam: Positive: Normal bowel sounds, Soft; Negative: Tenderness, Hepatospenomegaly Extremity Exam: Positive: Tenderness (of the right wrist with warmth.), Swelling, Other (small amouts of serosanguinous discharge from a point in the incision at rahul wrist. ); Negative: Clubbing, Cyanosis, Edema Neuro Exam: Positive: Normal Speech, Strength at 5/5 X4 ext, Normal Tone Psych Exam: Positive: Mental status NL, Memory Intact, Oriented x 3 Vital Signs Vital Signs Date Time Temp Pulse Resp B/P (MAP) Pulse Ox O2 Delivery O2 Flow Rate FiO2 10/13/20 14:18 98.9 63 16 130/62 100 Room Air Laboratory Data Labs 24H Laboratory Tests 2 10/13/20 11:01: Lactic Acid Level 0.8 10/13/20 11:02: Immature Granulocyte % (Auto) 0.5, Neutrophils (%) (Auto) 70.4H, Lymphocytes (%) (Auto) 21.8L, Monocytes (%) (Auto) 6.3H, Eosinophils (%) (Auto) 0.5, Basophils (%) (Auto) 0.5, Neutrophils # (Auto) 4.0, Lymphocytes # (Auto) 1.2L, Monocytes # (Auto) 0.4, Eosinophils # (Auto) 0.0, Basophils # (Auto) 0.0, Nucleated Red Blood Cells % (auto) 0.0, Erythrocyte Sedimentation Rate 84H, Anion Gap 4L, Glomerular Filtration Rate > 60.0, Calcium Level 8.8, Total Bilirubin 0.2, Direct Bilirubin < 0.1, Aspartate Amino Transf (AST/SGOT) 11, Alanine Aminotransferase (ALT/SGPT) 17, Alkaline Phosphatase 122H, C-Reactive Protein, Quantitative 0.42H, Total Protein 7.4, Albumin 3.3, Albumin/Globulin Ratio 0.8L 10/13/20 13:51: CBC/BMP Laboratory Tests 10/13/20 11:02 Microbiology Microbiology 10/13/20 Blood Culture, Received Pending 10/13/20 Gram Stain, Received Pending 10/13/20 Wound Culture, Received Pending 10/13/20 Blood Culture, Received Pending Assessment/Plan 40 year old female presented to ED for fatigued, and intermittent drainage from the surgical incision site at the right wrist for 1 week and increased pain at the wrist and hand and unable to move the fingers due to severe pain. Patient initially sustained right wrist fracture on 06/08/20 and underwent ORIF here however it did not heal so was referred to [facility] orthopedics for non healing fracture and underwent bone transplant and fixation with plate and screws on 08/08/20. Work up in the ED also showed severe anemia with Hb of 6.6. and wrist Osteomyelitis. [facility] was called by ED provider Lena Arreola but they refused to accept the patient even for ED to ED transfer as there is no space. She then called [facility] orthopedics and spoke with Dr Cancino and he advised to walk in to the office tomorrow when Dr Hanna will be available and will be able to see her. Patient was admitted for symptomatic anemia and wrist osteomyelitis. Wrist Osteomyelitis with chronic non healing fracture of the wrist with hardware in place. wound culture was sent from ED continue vancomycin MRSA pcr Patient complained of some itching after the antibiotics resolved with benadryl. Follow up with [facility] ortho at the earliest. pain control with tramadol dn toradol Symptomatic anemia Patient has h/o chronic anemia, severe iron def, B12 def , She reports this has been a problem after her gastric bypass surgery and she take iron 3 times a day but does not absorb much. will give 2 units of PRBC iron studies will give venofer 500 mg. Chronic back pain gabapentin and baclofen H/O Morbid obesity s/p gastric bypass surgery in 2009. Plan / VTE VTE Prophylaxis Ordered?: Yes YESENIA SINCLAIR MD Oct 13, 2020 15:10
[2020-10-13] MEDS ORDERED: VANCOMYCIN HCL 1,000 MG, VIAL MATE ADAPTER 1 EACH in D5W 250 ML IV SCH (16:00)
[2020-10-13 16:37] LABS: FERRITIN 3 NG/ML (8-252); IRON (FE) 13 UG/DL (50-170); PERCENT SATURATION 2.7 % (13.2-45.0); TOTAL IRON BINDING CAPACITY 490 UG/DL (250-450)
[2020-10-13] MEDS: GABAPENTIN 100 MG CAP PO SCH ×2 (16:47→20:48)
[2020-10-13] MEDS: BACLOFEN 10 MG TAB PO PRN (16:47)
[2020-10-13] MEDS: traMADol 50 MG TAB PO PRN (16:48)
[2020-10-13] MEDS ORDERED: FUROSEMIDE 40MG/4ML VIAL (J1940) IV ONE (17:00)
[2020-10-13] MEDS: diphenhydrAMINE 50MG/ML VIAL (J1200) IV PRN (19:56)
[2020-10-13] MEDS: VANCOMYCIN HCL 1,000 MG, VIAL MATE ADAPTER 1 EACH in D5W 250 ML IV SCH (20:49)
[2020-10-14] MEDS: NS 1,000 ML IV SCH ×3 (02:17→12:15)
[2020-10-14] MEDS: diphenhydrAMINE 50MG/ML VIAL (J1200) IV PRN (04:27)
[2020-10-14] MEDS: VANCOMYCIN HCL 1,000 MG, VIAL MATE ADAPTER 1 EACH in D5W 250 ML IV SCH ×2 (04:27→12:00)
[2020-10-14 06:00] VITALS: BP 100/58
[2020-10-14 07:08] LABS: HEMATOCRIT 27.5 % (36.0-47.0); HEMOGLOBIN 7.8 g/dl (12.0-15.5); MEAN CORPUSCULAR HEMOGLOBIN 20.6 pg (27.0-33.0); MEAN CORPUSCULAR HGB CONC 28.4 g/dl (32.0-36.5); MEAN CORPUSCULAR VOLUME 72.6 fl (80.0-96.0); RED BLOOD COUNT 3.79 10^6/uL (4.00-5.40); WHITE BLOOD COUNT 5.9 10^3/uL (4.0-10.0)
[2020-10-14 07:09] LABS: PLATELET COUNT, AUTOMATED 242 10^3/uL (150-450)
[2020-10-14 07:27] LABS: BLOOD UREA NITROGEN 13 MG/DL (7-18); CALCIUM LEVEL 8.1 MG/DL (8.5-10.1); CARBON DIOXIDE LEVEL 26 MEQ/L (21-32); CHLORIDE LEVEL 110 MEQ/L (98-107); CREATININE FOR GFR 0.65 MG/DL (0.55-1.30); GLOMERULAR FILTRATION RATE > 60.0 (>58); GLUCOSE, FASTING 98 MG/DL (70-100); POTASSIUM SERUM 3.8 MEQ/L (3.5-5.1); SODIUM LEVEL 140 MEQ/L (136-145)
[2020-10-14] MEDS ORDERED: IRON SUCROSE 500 MG in NS 250 ML IV ONE (09:00)
[2020-10-14] MEDS: GABAPENTIN 100 MG CAP PO SCH (09:06)
[2020-10-14] MEDS: traMADol 50 MG TAB PO PRN (09:06)
[2020-10-14] MEDS: BACLOFEN 10 MG TAB PO PRN (09:06)
[2020-10-14] MEDS ORDERED: LEVO750T13 PO (09:52)
[2020-10-14 10:17] LABS: VITAMIN B12 LEVEL 341 PG/ML (247-911)
--- NOTE | 2020-10-14 10:24 | DS.PDOC ---
Discharge Summary General Date of Admission Oct 13, 2020 at 10:27 Date of Discharge 10/14/20 Discharge Summary PROCEDURES PERFORMED DURING STAY: [None]. DISCHARGE DIAGNOSES: Symptomatic anemia Severe Iron deficiency Right wrist Osteomyelitis. SECONDARY DIAGNOSIS: Non healing right wrist fracture radius and ulna s/p donar bone tx on 08/08/20, Fracture sustained on 06/08/20 H/O morbid obesity s/p gastric bypass in 2009 Chronic anemia H/o Vit B12 def H/O vit D def. Iron deficiency. Vit B12 def, Vit D def Depression Chronic back pain. COMPLICATIONS/CHIEF COMPLAINT: Osteomyelitis,Symptomatic Anemia. HOSPITAL COURSE: 40 year old female presented to ED for fatigued, and intermittent drainage from the surgical incision site at the right wrist for 1 week and increased pain at the wrist and hand and unable to move the fingers due to severe pain. Patient initially sustained right wrist fracture on 06/08/20 and underwent ORIF here however it did not heal so was referred to [facility] orthopedics for non healing fracture and underwent bone transplant and fixation with plate and screws on 08/08/20. Work up in the ED also showed severe anemia with Hb of 6.6. and wrist Osteomyelitis. [facility] was called by ED provider Lena Arreola but they refused to accept the patient even for ED to ED transfer as there is no space. She then called [facility] orthopedics and spoke with Dr Cancino and he advised to walk in to the office tomorrow when Dr Hanna will be available and will be able to see her. Patient was admitted for symptomatic anemia and wrist osteomyelitis. Wrist Osteomyelitis with chronic non healing fracture of the wrist with hardware in place. wound culture was sent from ED given vancomycin in hospital MRSA pcr negative. Patient complained of some itching after the antibiotics resolved with benadryl. Follow up with [facility] orthopedics today Dr Hanna at 3:15 PM. pain control with tramadol will discharge with Levofloxacin. wound culture still pending. Symptomatic anemia Patient has h/o chronic anemia, severe iron def, B12 def , She reports this has been a problem after her gastric bypass surgery and she take iron 3 times a day but does not absorb much. will give 2 units of PRBC iron studies shows very low ferritin. Reports had colonoscopy and EGD before when she first started anemia after her bypass surgery and reported they were normal. venofer 500 mg. Guaiac in the ED was negative. Will refer to GI Chronic back pain gabapentin and baclofen H/O Morbid obesity s/p gastric bypass surgery in 2009. does not follow with anyone DISCHARGE MEDICATIONS: Please see below. ALLERGIES: Please see below. PHYSICAL EXAMINATION ON DISCHARGE: VITAL SIGNS: Please see below. General Exam: Positive: Alert, Cooperative, No Acute Distress Eye Exam: Positive: PERRLA, Conjunctiva & lids normal, EOMI; Negative: Sclera icteric ENT Exam: Positive: Atraumatic, Mucous membr. moist/pink, Pharynx Normal Neck Exam: Positive: Supple; Negative: JVD, thyromegaly Chest Exam: Positive: Clear to auscultation, Normal air movement Heart Exam: Positive: Rate Normal, Regular Rhythm, Normal S1, Normal S2; Negative: Murmurs, Rubs Abdomen Exam: Positive: Normal bowel sounds, Soft; Negative: Tenderness, Hepatospenomegaly Extremity Exam: Positive: Tenderness (of the right wrist with warmth.), Swelling, Other (small amounts of serosanguineous discharge from a point in the incision at the wrist. ); Negative: Clubbing, Cyanosis, Edema Neuro Exam: Positive: Normal Speech, Strength at 5/5 X4 ext, Normal Tone Psych Exam: Positive: Mental status NL, Memory Intact, Oriented x 3 LABORATORY DATA: Please see below. ACTIVITY: [As tolerated]. DISPOSITION: Home DISCHARGE INSTRUCTIONS: Follow with [facility] orthopedics today. Follow up with PMD in 1 to 2 weeks Referral to GI. ITEMS TO FOLLOWUP ON ON OUTPATIENT: Final wound cultures from the wrist joint. DISCHARGE CONDITION: [Stable]. TIME SPENT ON DISCHARGE: 35 minutes. Vital Signs/I&Os Vital Signs Date Time Temp Pulse Resp B/P (MAP) Pulse Ox O2 Delivery O2 Flow Rate FiO2 10/14/20 09:36 18 10/14/20 06:00 98.0 59 100/58 (72) Room Air 10/13/20 22:00 97 I&O- Last 24 Hours up to 6 AM 10/14/20 06:00 Intake Total 2357 ml Output Total 1750 ml Balance 607 ml Laboratory Data Labs 24H Laboratory Tests 2 10/13/20 11:01: Lactic Acid Level 0.8 10/13/20 11:02: Immature Granulocyte % (Auto) 0.5, Neutrophils (%) (Auto) 70.4H, Lymphocytes (%) (Auto) 21.8L, Monocytes (%) (Auto) 6.3H, Eosinophils (%) (Auto) 0.5, Basophils (%) (Auto) 0.5, Neutrophils # (Auto) 4.0, Lymphocytes # (Auto) 1.2L, Monocytes # (Auto) 0.4, Eosinophils # (Auto) 0.0, Basophils # (Auto) 0.0, Nucleated Red Blood Cells % (auto) 0.0, Erythrocyte Sedimentation Rate 84H, Anion Gap 4L, Glomerular Filtration Rate > 60.0, Calcium Level 8.8, Iron Level 13L, Total Iron Binding Capacity 490H, Transferrin % Saturation 2.7L, Ferritin 3L, Total Bilirubin 0.2, Direct Bilirubin < 0.1, Aspartate Amino Transf (AST/SGOT) 11, Alanine Aminotransferase (ALT/SGPT) 17, Alkaline Phosphatase 122H, C-Reactive Protein, Quantitative 0.42H, Total Protein 7.4, Albumin 3.3, Albumin/Globulin Ratio 0.8L 10/13/20 13:51: Coronavirus (COVID-19)(PCR) NEGATIVE 10/13/20 16:24: Methicillin-Resist S.aureus DNA PCR NOT DETECTED 10/14/20 06:41: Nucleated Red Blood Cells % (auto) 0.0, Anion Gap 4L, Glomerular Filtration Rate > 60.0, Calcium Level 8.1L CBC/BMP Laboratory Tests 10/13/20 11:02 10/14/20 06:41 Microbiology Microbiology 10/13/20 Blood Culture, Received Pending 10/13/20 Gram Stain - Final, Resulted 10/13/20 Wound Culture, Resulted Pending 10/13/20 Blood Culture, Received Pending Discharge Medications Scheduled Ferrous Sulfate (Iron) 325 Mg Tablet, 325 MG PO TID, (Reported) Gabapentin (Gabapentin) 100 Mg Capsule, 100 MG PO TID, (Reported) Levofloxacin (Levofloxacin) 750 Mg Tablet, 1 TAB PO DAILY Scheduled PRN Acetaminophen/Diphenhydramine (Acetaminophen Pm Caplet) 1 Each Tablet, 1 TAB PO QHS PRN for SLEEP, (Reported) Baclofen (Baclofen) 20 Mg Tablet, 20 MG PO TID PRN for MUSCLE SPASMS, (Reported) Tramadol HCl (Tramadol HCl) 50 Mg Tablet, 100 MG PO Q8H PRN for PAIN, (Reported) Allergies Coded Allergies: Sulfa (Sulfonamide Antibiotics) (Verified Allergy, Intermediate, hives, 03/02/19) sulfamethoxazole (Verified Allergy, Intermediate, hives, 03/02/19) trimethoprim (Verified Allergy, Intermediate, hives, 03/02/19) vancomycin (Verified Allergy, Intermediate, itchy at injection site & all over, 10/13/20) YESENIA SINCLAIR MD Oct 14, 2020 10:24
== END 2020-10-14 13:55 | disposition home or self-care (01) ==
LOC: M ED 10:26 → M ED INP 10:27 → ENRESERV 15:03 → M MS5PR 16:05
PROVIDERS: ADMIT Internal Medicine Nephrology; ATTEND Internal Medicine Nephrology
DX: D50.9 Iron deficiency anemia, unspecified (principal); M86.631 Other chronic osteomyelitis, right radius and ulna; S62.91XG Unspecified fracture of right hand, subsequent encounter for fracture with delayed healing; E55.9 Vitamin D deficiency, unspecified; Z98.84 Bariatric surgery status; Z79.899 Other long term (current) drug therapy; Z88.2 Allergy status to sulfonamides; Z88.1 Allergy status to other antibiotic agents; M54.9 Dorsalgia, unspecified; F32.9 Major depressive disorder, single episode, unspecified
CPT/HCPCS: 36415; 36430; 73110; 80048; 80076; 82607; 82728; 82746; 83550; 83605; 85025; 85027; 85652; 86140; 86850; 86900; 86901; 86920; 87040; 87070; 87205; 87641; 93041; 96361; 96365; 96366; 96375; 96376; 99285; J1200; J1756; J1885; J1940; J2930; J3370; P9016; U0002

== ENCOUNTER → 2020-11-18 | Outpatient (CLI) | payer OTHER ==
[~2020-11-18] MED LIST changes: +GABA-1171 PO; +LEVO750T13 PO
--- NOTE | 2020-11-20 23:58 | ECWPNPC ---
PATIENT NAME: OBED ANDERSON : 1980 GENDER: FEMALE VISIT DATE: 11/18/2020 DISCHARGE DATE: 11/18/20 1506 VISIT LOCKED DATE TIME: PHYSICIAN: KATE SEBASTIAN RESOURCE: KATE SEBASTIAN REASON FOR APPOINTMENT 1. NECK PAIN/UTOX HISTORY OF PRESENT ILLNESS DEPRESSION SCREENING: PHQ-2 (2015 EDITION) LITTLE INTEREST OR PLEASURE IN DOING THINGS?NOT AT ALL FEELING DOWN, DEPRESSED, OR HOPELESS?NOT AT ALL TOTAL SCORE0 40-YEAR-OLD FEMALE IN FOR CHRONIC PAIN FOLLOW-UP. SHE RATES HER PAIN CURRENTLY AT A 7 OUT OF 10 AND DESCRIBES IT TINGLING AND NUMBNESS. SHE FEELS HER MEDICATIONS ARE HELPFUL AND DENIES MED SIDE EFFECTS AT THIS TIME. GENERAL: - - -. FALL RISK SCREENING: SCREENING :ONE FALL WITH INJURY IN THE PAST YEAR 09/08/20 PATIENT WENT TO [facility] PAIN SCREENING: PATIENT HAS A COMPLAINT OF ACUTE OR CHRONIC PAIN :YES LOCATION OF PAIN:NECK, UPPER BACK INTENSITY OF PAIN (SCALE OF 1 TO 10):7 WHAT DOES YOUR PAIN FEEL LIKE:INTERMITTENT TINGLING AND NUMBNESS DURATION:STEADY, ALL DAY, AWAKENS FROM SLEEP PAIN IS INCREASED BY:ACTIVITIES, OTHERS RESTING AND WHEN BODY STARTS TO RELAX. PAIN IS DECREASED BY:USE OF PAIN MEDICATIONS, OTHERS HEATING PAD, MUSCLE RUB, TRAMADOL AND BACLOFEN HELPS, TYLENOL PM NEEDED. TREATMENT/MEDICATIONS USED TO MANAGE PAIN:OTC PAIN RELIEVERS, OPIOIDS TRAMADOL, BACLOFEN LEVEL OF RELIEF FROM PAIN TREATMENTS IN THE PAST:50% NURSING NOTE: - - -. PAIN CENTER INTAKE QUESTIONS: DO YOU HAVE A HISTORY OF MRSA? :NO DO YOU TAKE A BLOOD THINNERS? :NO DO YOU HAVE ANY BLEEDING DISORDERS? :YES ANEMIA 10/2020 ANY NEW NUMBNESS OR WEAKNESS IN YOUR LEGS OR ARMS? :NO ANY PACEMAKER,DEFIBRILLATOR, OR DORSAL COLUMN STIMULATOR? :NO DO YOU HAVE ANY RASHES OR OPEN SORES? :NO ARE YOU ALLERGIC TO IV DYE? :NO ARE YOU DIABETIC? :NO ANY NEW PROBLEMS WITH YOUR MEDICATIONS? :NO HAVE YOU RECEIVED A VACCINE IN THE PAST 30 DAYS? :NO DO YOU PLAN TO RECEIVE A VACCINE IN THE NEXT 21 DAYS? :YES DO YOU NEED ANY PRESCRIPTION? :YES TRAMADOL AND BACLOFEN DO YOU TAKE ANY IMMUNOSUPPRESSIVE MEDICATIONS? :NO IS THERE A CHANCE YOU COULD BE ? :NO ARE YOU BREAST FEEDING? :NO CURRENT MEDICATIONS TAKING FERROUS SULFATE 325 (65 FE) MG TABLET 1 TABLET WITH MEAL ORALLY QID TAKING COLACE 100 MG CAPSULE 1 -2 CAPSULES NEEDED ORALLY ONCE A DAY TAKING TYLENOL PM EXTRA STRENGTH TAKING BACLOFEN 20 MG TABLET 1 TABLET WITH FOOD OR MILK ORALLY EVERY 8 HRS TAKING TRAMADOL HCL 50 MG TABLET 1-2 TAB ORALLY Q8H PRN MDD6 TAKING TRAZODONE HCL 50 MG TABLET 1 TABLET AT BEDTIME NEEDED ORALLY ONCE A DAY NOT-TAKING OMEPRAZOLE 40 MG CAPSULE DELAYED RELEASE 1 CAPSULE BEFORE MEAL ORALLY ONCE A DAY NOT-TAKING VITAMIN D 1000 UNIT TABLET 1 TABLET ORALLY ONCE A DAY NOT-TAKING TRAZODONE HCL 100 MG TABLET 1 TABLET AT BEDTIME ORALLY ONCE A DAY NOT-TAKING LORATADINE 10 MG TABLET 1 TABLET ORALLY ONCE A DAY MEDICATION LIST REVIEWED AND RECONCILED WITH THE PATIENT PAST MEDICAL HISTORY GASTROESOPHAGEAL REFLUX DISEASE, ESOPHAGITIS PRESENCE NOT SPECIFIED IRON DEFICIENCY ANEMIA, UNSPECIFIED IRON DEFICIENCY ANEMIA TYPE STATUS POST BARIATRIC SURGERY PRIMARY INSOMNIA VITAMIN D DEFICIENCY VITAMIN B12 DEFICIENCY NECK PAIN ALLERGIES BACTRIM DS: RASH/FEVER - ALLERGY BACLOFEN: CONFUSION - SIDE EFFECTS SURGICAL HISTORY GASTRIC BY PASS 2005 C- SECTION X2 2007,2011 2 BONE PLATES AND DONOR IN RIGHT WRIST 08/08/2020 FAMILY HISTORY FATHER: ALIVE, HISTORY UNKNOWN MOTHER: ALIVE, ANXIETY. DDD, DIAGNOSED WITH HYPERTENSION, OTHER SPECIFIED CONDITIONS INFLUENCING HEALTH STATUS SIBLINGS: ALIVE SON(S): ALIVE DAUGHTER(S): ALIVE SOCIAL HISTORY GENERAL: TOBACCO USE ARE YOU A:NONSMOKER LATEX QUESTIONNAIRE LATEX ALLERGY : HAVE YOU EVER DEVELOPED ANY TYPE OF REACTION AFTER HANDLING LATEX PRODUCTS SUCH RUBBER GLOVES, CONDOMS, DIAPHRAGMS, BALLOONS, SOCKS, OR UNDERWEAR?NO LATEX ALLERGY : HAVE YOU EVER DEVELOPED ANY TYPE OF REACTION DURING OR AFTER DENTAL APPOINTMENT, VAGINAL/RECTAL EXAMINATION, SURGICAL PROCEDURE, OR ANY OTHER EXPOSURE?NO LATEX RISK : HAVE YOU EVER HAD ANY DIFFICULTY BREATHING OR HIVES AFTER EATING OR HANDLING ANY FRUITS, OR VEGETABLES; SUCH KIWI, BANANAS, STONE FRUITS, OR CHESTNUTSNO LATEX RISK : DO YOU HAVE A PREVIOUS PERSONAL HISTORY OF MORE THAN NINE SURGERIES, SPINA BIFIDA, OR REPEATED CATHERIZATIONS? NO LATEX RISK : ARE YOU FREQUENTLY EXPOSED TO LATEX PRODUCTS IN YOUR OCCUPATION?NO DATE ASKED : 11/18/2020 ALCOHOL SCREENING DID YOU HAVE A DRINK CONTAINING ALCOHOL IN THE PAST YEAR?NO POINTS0 INTERPRETATIONNEGATIVE RECREATIONAL DRUG USE DRUG USE?NO CAFFEINE CAFFEINE USE? NO. SIKH NO PREFERENCE. LANGUAGE [place]. EDUCATION LEVEL OF EDUCATION:FINISHED HIGH SCHOOL LEARNING BARRIERS / SPECIAL NEEDS BARRIERS TO LEARNING?NO HEARING IMPAIRED?NO VISION IMPAIRED?YES COGNITIVELY IMPAIRED?NO :CORRECTIVE LENSES READINESS TO LEARN?YES LEARNING PREFERENCES?NO LEARNING CAPABILITIES PRESENT?YES EMOTIONAL BARRIERS?NO SPECIAL DEVICES?NO BAND LINING BANDER NEEDED?NO DOMESTIC VIOLENCE DO YOU FEEL SAFE IN YOUR ENVIRONMENT?YES DIET: NONE. EXERCISE: WALKS DAILY. MARITAL STATUS: . OTHERS AT HOME: MOTHER, SISTER AND CHILDREN. PAIN CLINIC PFS, CLERGY, PUBLIC HEALTH REFERRALS PFS REFERRAL NEEDED?NO CLERGY REFERRAL NEEDED?NO PUBLIC HEALTH REFERRAL NEEDED?NO WAS THE PROVIDER NOTIFIED OF ANY PERTINENT INFO?NO HAS THE PATIENT BEEN EDUCATED REGARDING HIS/HER PLAN OF CARE?YES HAS THE PATIENT BEEN EDUCATED REGARDING PAIN, THE RISK FOR PAIN, THE IMPORTANCE OF EFFECTIVE PAIN MANAGEMENT, AND THE PAIN ASSESSMENT PROCESS?YES ADVANCE DIRECTIVE ADVANCE DIRECTIVE DISCUSSED WITH PATIENT:YES PT DOES NOT HAVE ANY ADVANCED DIRECTIVES AND SHE DECLINED INFORMATION ON HCP AT THIS TIME. 11/18/20 JH. HOSPITALIZATION/MAJOR DIAGNOSTIC PROCEDURE SURGERIES LISTED ONLY HOSPITALIZATIONS AMS 06/2018 BONE INFECTION AND LOW IRON 10/17/2020 REVIEW OF SYSTEMS CONSTITUTIONAL: ANY RECENT FEVER NO . CHILLS NO . WEIGHT CHANGE OF UNKNOWN REASONS NO . GASTROENTEROLOGY: NEW UNEXPLAINABLE CHANGES IN BOWEL CONTROL NO . CONSTIPATION NO . GENITOURINARY: ANY NEW CHANGE IN BLADDER CONTROL? NO . NEUROLOGY: NEW ONSET DIZZINESS OR NEUROLOGICAL CHANGES NOT MENTIONED NO . NEW NUMBNESS OR PAIN PATTERNS NOT MENTIONED AND PERTINENT TO TODAY'S VISIT NO . CARDIOLOGY: NEW CHEST PRESSURE NO . NEW CHEST PAIN NO . RESPIRATORY: UNEXPLAINABLE COUGH NO . NEW SHORTNESS OF BREATH NO . VITAL SIGNS WT 177.6 LBS, HT 65 IN, BMI 29.55 INDEX, BP 152/80 MM HG, HR 68 /MIN, RR 16 /MIN, TEMP 97.6 F, OXYGEN SAT % 100%, NA INITIALS JS 1340, REVIEWED BY: RODERICK MAYEN MA. EXAMINATION GENERAL EXAMINATION: GENERALNO ACUTE DISTRESS, WELL NOURISHED AND HYDRATED. PSYCHAPPROPRIATE MOOD AND AFFECT . LUNGS:CLEAR TO AUSCULTATION BILATERALLY, NO WHEEZES, RHONCHI, RALES. HEART:NO MURMURS, REGULAR RATE AND RHYTHM. ASSESSMENTS CHRONIC RIGHT SHOULDER PAIN - M25.511 (PRIMARY) [facility] (CURRENT) USE OF OPIATE ANALGESIC - Z79.891 TREATMENT CHRONIC RIGHT SHOULDER PAIN NOTES: 40-YEAR-OLD FEMALE IN FOR CHRONIC PAIN FOLLOW-UP. GIVEN PRESENTING SYMPTOMS RECOMMEND CONTINUATION OF CURRENT MEDICATION REGIMEN WITH FOLLOW-UP IN 2 MONTHS. PATIENT WILL HAVE U TOX PERFORMED TODAY. PATIENT HAS EXPRESSED UNDERSTANDING OF AND WAS IN AGREEMENT WITH TREATMENT PLAN. GIVEN TIME TO ASK QUESTIONS AND EXPRESS CONCERNS. , ISTOP REGISTRY REVIEWED AND DEMONSTRATES COMPLLIANCE. (REF # [id number] ) BRINGS IN MEDICATIONS WHICH IS APPROPRIATE FOR WHAT WAS DISPENSED. RECENT URINE TOXICOLOGY REVIEWED. NO UNAUTHORIZED MEDICATIONS. NO ILLICIT SUBSTANCES AND PRESCRIBED MEDICATIONS WERE PRESENT. [facility] (CURRENT) USE OF OPIATE ANALGESIC LAB: PAIN CENTER URINE TOX (SEND OUT) DISPOSITION & COMMUNICATION FOLLOW UP 2 MONTHS (REASON: SHOULDER PAIN) ELECTRONICALLY SIGNED BY URSULA TOBIN ON 11/20/2020 AT 10:06 AM EST DISCLAIMER : THIS IS A VISIT SUMMARY EXTRACTED FROM THE [facility] [employer] CHART. IT IS NOT A COPY OF THE [employer] [facility] [employer] PROGRESS NOTE. CLARISSA
== END ==
LOC: M PAIN 13:30
PROVIDERS: ATTEND Family Medicine
DX: M25.511 Pain in right shoulder (principal); G89.29 Other chronic pain; D50.9 Iron deficiency anemia, unspecified; F51.01 Primary insomnia; Z98.84 Bariatric surgery status; Z88.1 Allergy status to other antibiotic agents; Z88.8 Allergy status to other drugs, medicaments and biological substances; Z79.891 Long term (current) use of opiate analgesic; Z79.899 Other long term (current) drug therapy

== ENCOUNTER → 2020-11-19 | Outpatient (REF) | payer OTHER, MEDICAID ==
[2020-11-19 16:20] LABS: BASO % 0.5 % (0.0-1.0); EOS # 0.1 10^3/uL (0.0-0.5); EOS % 1.3 % (0.0-3.0); HEMATOCRIT 37.7 % (36.0-47.0); HEMOGLOBIN 11.4 g/dl (12.0-15.5); LYMPH # 1.1 10^3/uL (1.5-5.0); LYMPH % 28.7 % (24.0-44.0); MEAN CORPUSCULAR HEMOGLOBIN 24.1 pg (27.0-33.0); MEAN CORPUSCULAR HGB CONC 30.2 g/dl (32.0-36.5); MEAN CORPUSCULAR VOLUME 79.7 fl (80.0-96.0); MONO # 0.2 10^3/uL (0.0-0.8); NEUTROPHILS # 2.5 10^3/uL (1.5-8.5); NEUTROPHILS % 63.2 % (36.0-66.0); PLATELET COUNT, AUTOMATED 325 10^3/uL (150-450); RED BLOOD COUNT 4.73 10^6/uL (4.00-5.40)
[2020-11-19 16:45] LABS: ALBUMIN 4.1 GM/DL (3.2-5.2); ALT/SGPT 15 U/L (12-78); BILIRUBIN,TOTAL 0.3 MG/DL (0.2-1.0); BLOOD UREA NITROGEN 8 MG/DL (7-18); CALCIUM LEVEL 8.9 MG/DL (8.5-10.1); CARBON DIOXIDE LEVEL 28 MEQ/L (21-32); CHLORIDE LEVEL 107 MEQ/L (98-107); CHOLESTEROL LEVEL 159 MG/DL (<200); CHOLESTEROL RISK RATIO 2.484 (<5); CREATININE FOR GFR 0.64 MG/DL (0.55-1.30); FERRITIN 21 NG/ML (8-252); GLOMERULAR FILTRATION RATE > 60.0 (>58); GLUCOSE, FASTING 109 MG/DL (70-100); HDL CHOLESTEROL 64 MG/DL (>40); IRON (FE) 36 UG/DL (50-170); LDL CHOLESTEROL 80 MG/DL (<100); NON-HDL-C 95 MG/DL; PERCENT SATURATION 9.3 % (13.2-45.0); POTASSIUM SERUM 3.7 MEQ/L (3.5-5.1); SODIUM LEVEL 142 MEQ/L (136-145); TOTAL IRON BINDING CAPACITY 389 UG/DL (250-450); TOTAL PROTEIN 7.3 GM/DL (6.4-8.2); TRIGLYCERIDES LEVEL 74 MG/DL (<150)
[2020-11-19 16:50] LABS: TOTAL 25(OH) VITAMIN D 16.6 NG/ML (30.0-100.0)
== END ==
LOC: M LAB REF 15:57
PROVIDERS: ATTEND Physician Assistant
DX: D50.9 Iron deficiency anemia, unspecified (principal); Z13.220 Encounter for screening for lipoid disorders; E55.9 Vitamin D deficiency, unspecified

== ENCOUNTER → 2021-01-07 | Outpatient (REF) | payer OTHER ==
[2021-01-07 16:28] LABS: C REACTIVE PROTEIN QUANTITATIV < 0.30 MG/DL (0.00-0.30)
[2021-01-07 16:53] LABS: VITAMIN B12 LEVEL 402 PG/ML
[2021-01-07 16:54] LABS: FOLATE 4.8 NG/ML
[2021-01-07 19:14] LABS: HEMOGLOBIN A1c 4.9 %
== END ==
LOC: M LAB REF 16:06
PROVIDERS: ATTEND Pediatrics
DX: M86.9 Osteomyelitis, unspecified (principal); R73.01 Impaired fasting glucose; Z98.84 Bariatric surgery status

== ENCOUNTER → 2021-01-31 | Outpatient (CLI) | payer OTHER ==
[~2021-01-31] MED LIST changes: +ACET-683 PO; +TRAZ-252
--- NOTE | 2021-02-04 01:57 | ECWPNPC ---
PATIENT NAME: OBED ANDERSON : 1980 GENDER: FEMALE VISIT DATE: 01/31/2021 DISCHARGE DATE: 01/31/21 1202 VISIT LOCKED DATE TIME: PHYSICIAN: KATE SEBASTIAN RESOURCE: KATE SEBASTIAN REASON FOR APPOINTMENT 1. 2 MONTH SHOULDER PAIN HISTORY OF PRESENT ILLNESS GENERAL: -40-YEAR-OLD FEMALE IN FOR CHRONIC PAIN FOLLOW-UP. SHE RATES HER PAIN CURRENTLY AT A 7 OUT OF 10 AND DESCRIBES IT SORE, AND SHOOTING. PATIENT DOES ADMIT TO PAIN IN HER RIGHT ARM STATUS POST SURGERY. SHE FEELS HER MEDICATIONS ARE HELPFUL AND DENIES MED SIDE EFFECTS AT THIS TIME. FALL RISK SCREENING: SCREENING : NO FALLS REPORTED IN THE LAST YEAR. PAIN SCREENING: PATIENT HAS A COMPLAINT OF ACUTE OR CHRONIC PAIN :YES LOCATION OF PAIN:RIGHT SHOULDER INTENSITY OF PAIN (SCALE OF 1 TO 10):7 WHAT DOES YOUR PAIN FEEL LIKE:SORE, SHOOTING DURATION:MAINLY DURING THE DAY PAIN IS INCREASED BY:ACTIVITIES PAIN IS DECREASED BY:USE OF PAIN MEDICATIONS NURSING NOTE: -. PAIN CENTER INTAKE QUESTIONS: DO YOU HAVE A HISTORY OF MRSA? :NO DO YOU TAKE A BLOOD THINNERS? :NO DO YOU HAVE ANY BLEEDING DISORDERS? :YES ANEMIA 10/2020 ANY NEW NUMBNESS OR WEAKNESS IN YOUR LEGS OR ARMS? :YES RIGHT ARM MORE WEAKNESS ANY PACEMAKER,DEFIBRILLATOR, OR DORSAL COLUMN STIMULATOR? :NO DO YOU HAVE ANY RASHES OR OPEN SORES? :NO ARE YOU ALLERGIC TO IV DYE? :NO ARE YOU DIABETIC? :NO ANY NEW PROBLEMS WITH YOUR MEDICATIONS? :NO HAVE YOU RECEIVED A VACCINE IN THE PAST 30 DAYS? :NO DO YOU PLAN TO RECEIVE A VACCINE IN THE NEXT 21 DAYS? :NO DO YOU NEED ANY PRESCRIPTION? :YES TRAMADOL AND BACLOFEN DO YOU TAKE ANY IMMUNOSUPPRESSIVE MEDICATIONS? :NO IS THERE A CHANCE YOU COULD BE ? :NO ARE YOU BREAST FEEDING? :NO CURRENT MEDICATIONS TAKING FERROUS SULFATE 325 (65 FE) MG TABLET 1 TABLET WITH MEAL ORALLY QID TAKING COLACE 100 MG CAPSULE 1 -2 CAPSULES NEEDED ORALLY ONCE A DAY TAKING TRAZODONE HCL 50 MG TABLET 1 TABLET AT BEDTIME NEEDED ORALLY ONCE A DAY TAKING BACLOFEN 20 MG TABLET 1 TABLET WITH FOOD OR MILK ORALLY EVERY 8 HRS TAKING TRAMADOL HCL 50 MG TABLET 1-2 TAB ORALLY Q8H PRN MDD6 NOT-TAKING TYLENOL PM EXTRA STRENGTH NOT-TAKING OMEPRAZOLE 40 MG CAPSULE DELAYED RELEASE 1 CAPSULE BEFORE MEAL ORALLY ONCE A DAY NOT-TAKING VITAMIN D 1000 UNIT TABLET 1 TABLET ORALLY ONCE A DAY NOT-TAKING TRAZODONE HCL 100 MG TABLET 1 TABLET AT BEDTIME ORALLY ONCE A DAY NOT-TAKING LORATADINE 10 MG TABLET 1 TABLET ORALLY ONCE A DAY MEDICATION LIST REVIEWED AND RECONCILED WITH THE PATIENT PAST MEDICAL HISTORY GASTROESOPHAGEAL REFLUX DISEASE, ESOPHAGITIS PRESENCE NOT SPECIFIED IRON DEFICIENCY ANEMIA, UNSPECIFIED IRON DEFICIENCY ANEMIA TYPE STATUS POST BARIATRIC SURGERY PRIMARY INSOMNIA VITAMIN D DEFICIENCY VITAMIN B12 DEFICIENCY NECK PAIN ALLERGIES BACTRIM DS: RASH/FEVER - ALLERGY BACLOFEN: CONFUSION - SIDE EFFECTS SURGICAL HISTORY GASTRIC BY PASS 2004 C- SECTION X2 2007,2011 2 BONE PLATES AND DONOR IN RIGHT WRIST 08/08/2020 SOCIAL HISTORY GENERAL: TOBACCO USE ARE YOU A:NONSMOKER LATEX QUESTIONNAIRE LATEX ALLERGY : HAVE YOU EVER DEVELOPED ANY TYPE OF REACTION AFTER HANDLING LATEX PRODUCTS SUCH RUBBER GLOVES, CONDOMS, DIAPHRAGMS, BALLOONS, SOCKS, OR UNDERWEAR?NO LATEX ALLERGY : HAVE YOU EVER DEVELOPED ANY TYPE OF REACTION DURING OR AFTER DENTAL APPOINTMENT, VAGINAL/RECTAL EXAMINATION, SURGICAL PROCEDURE, OR ANY OTHER EXPOSURE?NO LATEX RISK : HAVE YOU EVER HAD ANY DIFFICULTY BREATHING OR HIVES AFTER EATING OR HANDLING ANY FRUITS, OR VEGETABLES; SUCH KIWI, BANANAS, STONE FRUITS, OR CHESTNUTSNO LATEX RISK : DO YOU HAVE A PREVIOUS PERSONAL HISTORY OF MORE THAN NINE SURGERIES, SPINA BIFIDA, OR REPEATED CATHERIZATIONS? NO LATEX RISK : ARE YOU FREQUENTLY EXPOSED TO LATEX PRODUCTS IN YOUR OCCUPATION?NO DATE ASKED : 01/31/2021 ALCOHOL USE: NO. ALCOHOL SCREENING DID YOU HAVE A DRINK CONTAINING ALCOHOL IN THE PAST YEAR?NO POINTS0 INTERPRETATIONNEGATIVE RECREATIONAL DRUG USE DRUG USE?NO CAFFEINE CAFFEINE USE? NO. RESTORATIONISM NO PREFERENCE. LANGUAGE GUAMANIAN. EDUCATION LEVEL OF EDUCATION:FINISHED HIGH SCHOOL LEARNING BARRIERS / SPECIAL NEEDS CHANGE FROM LAST VISIT?NO BARRIERS TO LEARNING?NO HEARING IMPAIRED?NO VISION IMPAIRED?YES :CORRECTIVE LENSES COGNITIVELY IMPAIRED?NO READINESS TO LEARN?YES LEARNING PREFERENCES?NO LEARNING CAPABILITIES PRESENT?YES EMOTIONAL BARRIERS?NO SPECIAL DEVICES?NO SMALL MACHINE BINDERY OPERATOR NEEDED?NO DOMESTIC VIOLENCE DO YOU FEEL SAFE IN YOUR ENVIRONMENT?YES DIET: NONE. EXERCISE: WALKS DAILY. MARITAL STATUS: . OTHERS AT HOME: MOTHER, SISTER AND CHILDREN. - PFS REFERRAL NEEDED?NO CLERGY REFERRAL NEEDED?NO PUBLIC HEALTH REFERRAL NEEDED?NO WAS THE PROVIDER NOTIFIED OF ANY PERTINENT INFO?NO HAS THE PATIENT BEEN EDUCATED REGARDING HIS/HER PLAN OF CARE?YES HAS THE PATIENT BEEN EDUCATED REGARDING PAIN, THE RISK FOR PAIN, THE IMPORTANCE OF EFFECTIVE PAIN MANAGEMENT, AND THE PAIN ASSESSMENT PROCESS?YES ADVANCE DIRECTIVE ADVANCE DIRECTIVE DISCUSSED WITH PATIENT:YES PT DOES NOT HAVE ANY ADVANCED DIRECTIVES AND SHE DECLINED INFORMATION ON HCP AT THIS TIME. 11/18/20 JH. HOSPITALIZATION/MAJOR DIAGNOSTIC PROCEDURE SURGERIES LISTED ONLY HOSPITALIZATIONS AMS 06/2018 BONE INFECTION AND LOW IRON 10/17/2020 REVIEW OF SYSTEMS CONSTITUTIONAL: ANY RECENT FEVER NO . CHILLS NO . WEIGHT CHANGE OF UNKNOWN REASONS NO . GASTROENTEROLOGY: NEW UNEXPLAINABLE CHANGES IN BOWEL CONTROL NO . CONSTIPATION NO . GENITOURINARY: ANY NEW CHANGE IN BLADDER CONTROL? NO . NEUROLOGY: NEW ONSET DIZZINESS OR NEUROLOGICAL CHANGES NOT MENTIONED NO . NEW NUMBNESS OR PAIN PATTERNS NOT MENTIONED AND PERTINENT TO TODAY'S VISIT NO . CARDIOLOGY: NEW CHEST PRESSURE NO . PATIENT DENIES NO . RESPIRATORY: UNEXPLAINABLE COUGH NO . NEW SHORTNESS OF BREATH NO . VITAL SIGNS WT 191.4 LBS, HT 65 IN, BMI 31.85 INDEX, BP 153/108 MM HG, REPEAT BP 125/80 MANUAL, HR 109 /MIN, RR 18 /MIN, TEMP 97.2 F, OXYGEN SAT % 100%, NA INITIALS SC 11:33RN IS AWERE OF PT'S BP AND WILL RECHECK JR.EL KAM. EXAMINATION GENERAL EXAMINATION: GENERALNO ACUTE DISTRESS, WELL NOURISHED AND HYDRATED. PSYCHAPPROPRIATE MOOD AND AFFECT . NECK:POINT TENDER RIGHT SHOULDER, SURROUNDING SKIN SHOWS NO ERYTHEMA, ECCHYMOSIS, INCREASED WARMTH, AND/OR SKIN ERUPTIONS NOTED. BANDS OF RESTRICTIVE TISSUE NOTED OVER TRIGGER POINTS . LUNGS:CLEAR TO AUSCULTATION BILATERALLY, NO WHEEZES, RHONCHI, RALES. HEART:NO MURMURS, REGULAR RATE AND RHYTHM. ASSESSMENTS MYALGIA, OTHER SITE - M79.18 (PRIMARY), RISK: (NULL) TREATMENT MYALGIA, OTHER SITE NOTES: 40-YEAR-OLD FEMALE IN FOR CHRONIC PAIN FOLLOW-UP. GIVEN PRESENTING SYMPTOMS AND RESULTS OF PHYSICAL EXAMINATION RECOMMENDED TRIGGER POINT INJECTION TO THE RIGHT SHOULDER WITH POST PROCEDURE FOLLOW-UP. PATIENT WAS ENCOURAGED TO DISCUSS POSTOP PAIN WITH HER SURGEON WE TREAT HER CHRONIC PAIN NOT HER ACUTE PAIN. PATIENT HAS EXPRESSED UNDERSTANDING OF AND WAS IN AGREEMENT WITH TREATMENT PLAN. GIVEN TIME TO ASK QUESTIONS AND EXPRESS CONCERNS. , ISTOP REGISTRY REVIEWED AND DEMONSTRATES COMPLLIANCE. (REF # [id number] ) BRINGS IN MEDICATIONS WHICH IS APPROPRIATE FOR WHAT WAS DISPENSED. RECENT URINE TOXICOLOGY REVIEWED. NO UNAUTHORIZED MEDICATIONS. NO ILLICIT SUBSTANCES AND PRESCRIBED MEDICATIONS WERE PRESENT. PROCEDURE CODES FA211 ESTABILISHED PATIENT [facility] CHARGE DISPOSITION & COMMUNICATION FOLLOW UP POST PROCEDURE (REASON: TRIGGER POINT INJECTIONS RIGHT SHOULDER ) ELECTRONICALLY SIGNED BY URSULA TOBIN ON 02/03/2021 AT 08:29 AM EDT DISCLAIMER : THIS IS A VISIT SUMMARY EXTRACTED FROM THE [employer] CHART. IT IS NOT A COPY OF THE [facility] PROGRESS NOTE. MTDD
== END ==
LOC: M PAIN 11:15
PROVIDERS: ATTEND Family Medicine
DX: M79.18 Myalgia, other site (principal); K21.00 Gastro-esophageal reflux disease with esophagitis, without bleeding; D50.9 Iron deficiency anemia, unspecified; E55.9 Vitamin D deficiency, unspecified; E53.8 Deficiency of other specified B group vitamins; M54.2 Cervicalgia; G47.00 Insomnia, unspecified; Z98.84 Bariatric surgery status; Z79.891 Long term (current) use of opiate analgesic; Z79.899 Other long term (current) drug therapy; Z88.2 Allergy status to sulfonamides; Z88.8 Allergy status to other drugs, medicaments and biological substances

== ENCOUNTER 2021-02-03 16:06 | Emergency (ER) | payer OTHER ==
[~2021-02-03] VITALS: Ht 162.6 cm; Wt 88.0 kg
[~2021-02-03 16:06] MED LIST changes: -ACET-683 PO; -TRAZ-252
[2021-02-03 16:07] VITALS: BP 151/88
[2021-02-03] MEDS ORDERED: TRAZ-252 (16:19)
[2021-02-03] MEDS ORDERED: ACET-683 PO (16:19)
== END 2021-02-03 18:15 | disposition left against medical advice (07) ==
LOC: M ED 16:06
DX: Z53.21 Procedure and treatment not carried out due to patient leaving prior to being seen by health care provider (principal)

== ENCOUNTER 2021-03-04 08:19 | Emergency (ER) | payer OTHER ==
[~2021-03-04] VITALS: Ht 162.6 cm; Wt 87.7 kg
[~2021-03-04 08:19] MED LIST changes: +ACET-683 PO; +TRAZ-252 PO
[2021-03-04] MEDS ORDERED: TRAM50TA2 PO (08:27)
[2021-03-04] MEDS ORDERED: cloNIDine 0.2 MG TAB PO ONE (09:15)
[2021-03-04] MEDS ORDERED: CLONI1TA PO (11:18)
[2021-03-04 11:27] VITALS: BP 132/73
== END 2021-03-04 11:35 | disposition home or self-care (01) ==
LOC: M ED 08:19
DX: F11.13 Opioid abuse with withdrawal (principal); G89.29 Other chronic pain; K21.9 Gastro-esophageal reflux disease without esophagitis; Z88.2 Allergy status to sulfonamides; Z88.1 Allergy status to other antibiotic agents

== ENCOUNTER 2021-03-06 09:49 | Inpatient (IN) | payer OTHER ==
[~2021-03-06] VITALS: Ht 162.6 cm; Wt 84.3 kg
[~2021-03-06 09:49] MED LIST changes: +CLONI1TA PO
[2021-03-06 11:14] LABS: HEMATOCRIT 35.7 % (36.0-47.0); HEMOGLOBIN 11.3 g/dl (12.0-15.5); MEAN CORPUSCULAR HEMOGLOBIN 27.3 pg (27.0-33.0); MEAN CORPUSCULAR HGB CONC 31.7 g/dl (32.0-36.5); MEAN CORPUSCULAR VOLUME 86.2 fl (80.0-96.0); PLATELET COUNT, AUTOMATED 338 10^3/uL (150-450); RED BLOOD COUNT 4.14 10^6/uL (4.00-5.40); WHITE BLOOD COUNT 4.7 10^3/uL (4.0-10.0)
[2021-03-06 11:51] LABS: AMPHETAMINES LEVEL URINE NEGATIVE (NEGATIVE); BARBITURATES URINE NEGATIVE (NEGATIVE); BENZODIAZEPINES URINE NEGATIVE (NEGATIVE); CANNABINOIDS URINE POSITIVE (NEGATIVE); COCAINE METABOLITE URINE NEGATIVE (NEGATIVE); METHADONE URINE NEGATIVE (NEGATIVE); OPIATES URINE NEGATIVE (NEGATIVE); PHENCYCLIDINE URINE NEGATIVE (NEGATIVE)
[2021-03-06 11:54] LABS: HCG, SERUM QUALITATIVE NEGATIVE (NEGATIVE)
[2021-03-06 11:55] LABS: ACETAMINOPHEN LEVEL < 2.0 UG/ML (10.0-30.0); ALBUMIN 4.1 GM/DL (3.2-5.2); ALT/SGPT 14 U/L (12-78); BILIRUBIN,DIRECT 0.2 MG/DL (0.0-0.2); BILIRUBIN,TOTAL 0.4 MG/DL (0.2-1.0); BLOOD UREA NITROGEN 9 MG/DL (7-18); CALCIUM LEVEL 9.7 MG/DL (8.5-10.1); CARBON DIOXIDE LEVEL 26 MEQ/L (21-32); CHLORIDE LEVEL 106 MEQ/L (98-107); CREATININE FOR GFR 0.74 MG/DL (0.55-1.30); ETHYL ALCOHOL (ETHANOL) < 0.003 % (0.000-0.010); GLOMERULAR FILTRATION RATE > 60.0 (>58); GLUCOSE, FASTING 87 MG/DL (70-100); POTASSIUM SERUM 3.2 MEQ/L (3.5-5.1); SALICYLATE LEVEL < 1.7 MG/DL (5.0-30.0); SODIUM LEVEL 141 MEQ/L (136-145); THYROID STIMULATING HORMONE 0.777 uIU/ML (0.358-3.740); TOTAL PROTEIN 7.5 GM/DL (6.4-8.2)
[2021-03-06 14:11] LABS: RSV AMPLIFICATION NEGATIVE (NEGATIVE)
[2021-03-06] MEDS ORDERED: POTASSIUM CHLORIDE 10 MEQ SR TABLET PO ONE (14:25)
[2021-03-06] MEDS ORDERED: MAALOX 30 ML SUSP *UDC PO PRN (14:35)
[2021-03-06] MEDS ORDERED: ACETAMINOPHEN TAB 650MG DOSE (2X325MG) PO PRN (14:35)
[2021-03-06] MEDS ORDERED: traZODone 50 MG TAB PO PRN (14:35)
[2021-03-06] MEDS ORDERED: MOM 30ML SUSPENSION UDC PO PRN (14:35)
[2021-03-06 15:21] VITALS: BP 165/86
[2021-03-06] MEDS ORDERED: CLON-412 PO (15:28)
[2021-03-07] MEDS ORDERED: OLANZapine ORAL DISINTEGRATING TAB 5MG PO ONE ×2 (01:35→05:10)
[2021-03-07] MEDS ORDERED: LORazepam 2 MG TAB PO ONE ×2 (02:45→04:00)
[2021-03-07] MEDS ORDERED: diphenhydrAMINE 50MG CAP PO ONE ×2 (02:45→04:00)
[2021-03-07] MEDS ORDERED: haloperidoL 5 MG TAB PO ONE ×3 (04:00→12:45)
[2021-03-07 04:59] VITALS: BP 146/92
[2021-03-07 05:45] VITALS: BP 156/86
[2021-03-07] MEDS ORDERED: OLANZapine ORAL DISINTEGRATING TAB 5MG PO STA (05:46)
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
[2021-03-07 06:15] VITALS: BP 136/83
[2021-03-07 06:30] VITALS: BP 122/80
[2021-03-07] MEDS ORDERED: LORazepam 1 MG TAB PO ONE (08:45)
[2021-03-07] MEDS ORDERED: BENZTROPINE MESYLATE 2MG/2ML VIAL IM ONE (10:05)
[2021-03-07 11:00] VITALS: BP 148/86
[2021-03-07 12:00] VITALS: BP 150/76
[2021-03-07 13:34] LABS: BASO # 0.1 10^3/uL (0.0-0.2); BASO % 0.7 % (0.0-1.0); EOS % 0.1 % (0.0-3.0); HEMATOCRIT 39.1 % (36.0-47.0); HEMOGLOBIN 11.4 g/dl (12.0-15.5); LYMPH # 1.6 10^3/uL (1.5-5.0); LYMPH % 17.8 % (24.0-44.0); MEAN CORPUSCULAR HEMOGLOBIN 26.8 pg (27.0-33.0); MEAN CORPUSCULAR HGB CONC 29.2 g/dl (32.0-36.5); MONO # 0.7 10^3/uL (0.0-0.8); MONO % 7.4 % (2.0-8.0); NEUTROPHILS # 6.6 10^3/uL (1.5-8.5); NEUTROPHILS % 73.6 % (36.0-66.0); PLATELET COUNT, AUTOMATED 388 10^3/uL (150-450); RED BLOOD COUNT 4.25 10^6/uL (4.00-5.40)
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
[2021-03-07] MEDS ORDERED: BACLOFEN 10 MG TAB PO ONE ×2 (14:05→18:00)
[2021-03-07 14:11] LABS: ALBUMIN 4.4 GM/DL (3.2-5.2); ALT/SGPT 15 U/L (12-78); BILIRUBIN,TOTAL 0.8 MG/DL (0.2-1.0); BLOOD UREA NITROGEN 10 MG/DL (7-18); CALCIUM LEVEL 9.7 MG/DL (8.5-10.1); CARBON DIOXIDE LEVEL 26 MEQ/L (21-32); CHLORIDE LEVEL 108 MEQ/L (98-107); GLOMERULAR FILTRATION RATE > 60.0 (>58); GLUCOSE, FASTING 94 MG/DL (70-100); POTASSIUM SERUM 3.1 MEQ/L (3.5-5.1); SODIUM LEVEL 144 MEQ/L (136-145); TOTAL PROTEIN 7.8 GM/DL (6.4-8.2)
--- NOTE | 2021-03-07 14:13 | HPEPDOC ---
[facility] Medical History & Physical Date of Admission Mar 06, 2021 Date of Service: Mar 07, 2021 History and Physical CHIEF COMPLAINT: psychosis HISTORY OF PRESENT ILLNESS: 40 yo female presents to ED with complaints that she ran out of Baclofen and Tramadol ten days ago. Found to be confused and agitated in the ED. PAST MEDICAL HISTORY: #GERD #NITO s/p bariatric surgery #insomnia ALLERGIES: Please see below. REVIEW OF SYSTEMS: Unable to obtain. HOME MEDICATIONS: Please see below. PHYSICAL EXAMINATION: VITAL SIGNS: See below, VSS General: visual hallucinations, restless, in restraints Unable to complete remainder of physical examination. LABORATORY DATA: See below. MICROBIOLOGY: Please see below. A/P: 40 yo female admitted for psychosis, appears to be secondary to Baclofen withdrawal #Baclofen withdrawal - discussed with neurology, and critical care - recommend resuming Baclofen, and then taper - starting Baclofen 20 TID, can use IM valium PRN - discussed at length with her mother Thank you for this consultation. We will continue to follow closely. Vital Signs Vital Signs Date Time Temp Pulse Resp B/P (MAP) Pulse Ox O2 Delivery O2 Flow Rate FiO2 03/07/21 12:00 97.9 64 16 150/76 95 Room Air Laboratory Data Labs 24H Laboratory Tests 2 03/07/21 13:09: Immature Granulocyte % (Auto) 0.4, Neutrophils (%) (Auto) 73.6H, Lymphocytes (%) (Auto) 17.8L, Monocytes (%) (Auto) 7.4, Eosinophils (%) (Auto) 0.1, Basophils (%) (Auto) 0.7, Neutrophils # (Auto) 6.6, Lymphocytes # (Auto) 1.6, Monocytes # (Auto) 0.7, Eosinophils # (Auto) 0.0, Basophils # (Auto) 0.1, Nucleated Red Blood Cells % (auto) 0.0 CBC/BMP Laboratory Tests 03/07/21 13:09 Home Medications Scheduled Clonidine HCl (Clonidine HCl) 0.1 Mg Tablet, 0.1 MG PO TID Ferrous Sulfate (Iron) 325 Mg Tablet, 325 MG PO TID Scheduled PRN Baclofen (Baclofen) 20 Mg Tablet, 20 MG PO TID PRN for MUSCLE SPASMS Tramadol HCl (Tramadol HCl) 50 Mg Tablet, 100 MG PO Q8H PRN for PAIN Trazodone HCl (Trazodone HCl) 50 Mg Tablet, 50 MG PO QHS PRN for SLEEP Allergies Coded Allergies: Sulfa (Sulfonamide Antibiotics) (Verified Allergy, Intermediate, hives, ) sulfamethoxazole (Verified Allergy, Intermediate, hives, 03/02/19) trimethoprim (Verified Allergy, Intermediate, hives, 03/02/19) vancomycin (Verified Allergy, Intermediate, itchy at injection site & all over, 10/13/20) A-FIB/CHADSVASC A-FIB History Current/History of A-Fib/PAF?: No JACKELIN RADER MD Mar 07, 2021 14:13
[2021-03-07] MEDS ORDERED: diazePAM 10MG/2ML SYRINGE (J3360 PER 5MG) IM ONE ×2 (15:00→18:00)
[2021-03-07 16:25] LABS: CPK CREATINE PHOSPHOKINASE 76 U/L (26-192)
[2021-03-07 16:51] LABS: CPK CREATINE PHOSPHOKINASE 409 U/L (26-192)
[2021-03-07] MEDS ORDERED: BACLOFEN 10 MG TAB PO SCH (21:00)
--- NOTE | 2021-03-09 09:12 | MHDS ---
DISCHARGE SUMMARY DATE OF ADMISSION: 03/06/2021 DATE OF DISCHARGE: 03/07/2021 DIAGNOSES: 1. Delirium secondary to baclofen withdrawal. 2. Baclofen use disorder. 3. Opiate use disorder It should be noted I did not see the patient. This is based on hospital records and I happen to be outpatient receptionist when the patient was being transferred and discharged to the hospitalist service. HISTORY OF PRESENT ILLNESS: This is a 40-year-old female who came to the emergency room. She indicated to me she had run out of tramadol and baclofen 10 days prior to coming to the hospital. Please see the admission summary by Mary Jo Dykes for details related to circumstances leading up to the patient's hospitalization, background information, past history and mental status examination at the time of admission. HOSPITAL COURSE: She was noted to be confused, agitated and apparently had a hard time in maintaining attention. Hospitalist service was called, which she was seen very kindly by Dr. Do, and she was recommended to be transferred to the hospitalist service, the ICU for further management. I was outpatient receptionist. I was informed about this. The patient was transferred.
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
== END 2021-03-07 18:36 | disposition short-term general hospital (02) | DRG 751 ==
LOC: M ED 09:49 → M ED INP 14:31 → M PSY 15:42
PROVIDERS: ADMIT Psychiatry & Neurology Psychiatry; ATTEND Psychiatry & Neurology Psychiatry
DX: F29 Unspecified psychosis not due to a substance or known physiological condition (principal); F11.259 Opioid dependence with opioid-induced psychotic disorder, unspecified; D50.9 Iron deficiency anemia, unspecified; K21.9 Gastro-esophageal reflux disease without esophagitis; R41.0 Disorientation, unspecified; Z98.84 Bariatric surgery status; G47.00 Insomnia, unspecified; Z91.138 Patient's unintentional underdosing of medication regimen for other reason; T42.8X6A Underdosing of antiparkinsonism drugs and other central muscle-tone depressants, initial encounter

== ENCOUNTER 2021-03-07 18:11 | Inpatient (IN) | payer OTHER ==
[~2021-03-07] VITALS: Ht 162.6 cm; Wt 81.1 kg
[~2021-03-07 18:11] MED LIST changes: +CLON-412 PO
--- NOTE | 2021-03-07 18:40 | HPEPDOC ---
[facility] Medical History & Physical Date of Admission Mar 07, 2021 Date of Service: Mar 07, 2021 History and Physical [facility] COMPLAINT: psychosis HISTORY OF PRESENT ILLNESS: 40 yo female presents to ED with complaints that she ran out of Baclofen and Tramadol ten days ago. Found to be confused and agitated in the ED. PAST MEDICAL HISTORY: #GERD #NITO s/p bariatric surgery #insomnia #substance abuse #psychiatric history ALLERGIES: Please see below. REVIEW OF SYSTEMS: Unable to obtain. HOME MEDICATIONS: Please see below. PHYSICAL EXAMINATION: VITAL SIGNS: See below, VSS General: visual hallucinations, restless, in restraints Unable to complete remainder of physical examination. LABORATORY DATA: See below. MICROBIOLOGY: Please see below. A/P: 40 yo female admitted for psychosis, appears to be secondary to Baclofen withdrawal #Baclofen withdrawal - IV fluids - discussed with neurology, and critical care - will resume Baclofen, and then taper when stabilized - starting Baclofen 20 TID, can use IM valium PRN - discussed at length with her mother #DVT prophylaxis - mechanical Home Medications Scheduled Clonidine HCl (Clonidine HCl) 0.1 Mg Tablet, 0.1 MG PO TID Ferrous Sulfate (Iron) 325 Mg Tablet, 325 MG PO TID Scheduled PRN Baclofen (Baclofen) 20 Mg Tablet, 20 MG PO TID PRN for MUSCLE SPASMS Tramadol HCl (Tramadol HCl) 50 Mg Tablet, 100 MG PO Q8H PRN for PAIN Trazodone HCl (Trazodone HCl) 50 Mg Tablet, 50 MG PO QHS PRN for SLEEP Allergies Coded Allergies: Sulfa (Sulfonamide Antibiotics) (Verified Allergy, Intermediate, hives, 03/02/19) sulfamethoxazole (Verified Allergy, Intermediate, hives, 03/02/19) trimethoprim (Verified Allergy, Intermediate, hives, 03/02/19) vancomycin (Verified Allergy, Intermediate, itchy at injection site & all over, 10/13/20) A-FIB/CHADSVASC A-FIB History Current/History of A-Fib/PAF?: No JACKELIN RADER MD Mar 07, 2021 18:40
[2021-03-07 18:51] VITALS: BP 133/69
[2021-03-07 20:00] VITALS: BP 124/57
[2021-03-07] MEDS: NS 1,000 ML IV SCH (21:16)
[2021-03-07] MEDS: BACLOFEN 10 MG TAB PO SCH (21:16)
[2021-03-08] VITALS: BP 115/61
[2021-03-08 04:00] VITALS: BP 120/58
[2021-03-08 04:47] LABS: HEMATOCRIT 33.7 % (36.0-47.0); HEMOGLOBIN 10.3 g/dl (12.0-15.5); MEAN CORPUSCULAR HEMOGLOBIN 26.8 pg (27.0-33.0); MEAN CORPUSCULAR HGB CONC 30.6 g/dl (32.0-36.5); MEAN CORPUSCULAR VOLUME 87.5 fl (80.0-96.0); RED BLOOD COUNT 3.85 10^6/uL (4.00-5.40); WHITE BLOOD COUNT 4.9 10^3/uL (4.0-10.0)
[2021-03-08 04:51] LABS: PLATELET COUNT, AUTOMATED 276 10^3/uL (150-450)
[2021-03-08 05:08] LABS: BLOOD UREA NITROGEN 11 MG/DL (7-18); CARBON DIOXIDE LEVEL 29 MEQ/L (21-32); CHLORIDE LEVEL 112 MEQ/L (98-107); CREATININE FOR GFR 0.62 MG/DL (0.55-1.30); GLOMERULAR FILTRATION RATE > 60.0 (>58); GLUCOSE, FASTING 69 MG/DL (70-100); MAGNESIUM LEVEL 2.2 MG/DL (1.8-2.4); SODIUM LEVEL 145 MEQ/L (136-145)
[2021-03-08] MEDS: NS 1,000 ML IV SCH (06:43)
[2021-03-08 08:00] VITALS: BP 134/64
[2021-03-08] MEDS: BACLOFEN 10 MG TAB PO SCH ×4 (08:38→20:41)
[2021-03-08] MEDS ORDERED: ENOXAPARIN 40MG/0.4ML SYRINGE (J1650 PER 10MG) SC SCH (09:00)
[2021-03-08] MEDS ORDERED: POTASSIUM CHLORIDE 10 MEQ SR TABLET PO ONE (09:00)
[2021-03-08 11:51] VITALS: BP 129/77
[2021-03-08 16:07] VITALS: BP 151/71
[2021-03-08] MEDS: FERROUS SULFATE 325MG TAB PO SCH ×2 (17:28→20:41)
[2021-03-08 20:41] VITALS: BP 126/65
[2021-03-08] MEDS ORDERED: traMADol 50 MG TAB PO ONE (20:55)
[2021-03-09 02:13] VITALS: BP 118/58
[2021-03-09 05:20] LABS: HEMATOCRIT 34.5 % (36.0-47.0); HEMOGLOBIN 10.7 g/dl (12.0-15.5); MEAN CORPUSCULAR HEMOGLOBIN 27.2 pg (27.0-33.0); MEAN CORPUSCULAR VOLUME 87.6 fl (80.0-96.0); PLATELET COUNT, AUTOMATED 287 10^3/uL (150-450); RED BLOOD COUNT 3.94 10^6/uL (4.00-5.40); WHITE BLOOD COUNT 3.8 10^3/uL (4.0-10.0)
[2021-03-09 05:45] LABS: ALBUMIN 3.2 GM/DL (3.2-5.2); ALT/SGPT 17 U/L (12-78); BILIRUBIN,TOTAL 0.4 MG/DL (0.2-1.0); BLOOD UREA NITROGEN 9 MG/DL (7-18); CALCIUM LEVEL 8.3 MG/DL (8.5-10.1); CARBON DIOXIDE LEVEL 31 MEQ/L (21-32); CHLORIDE LEVEL 111 MEQ/L (98-107); CREATININE FOR GFR 0.51 MG/DL (0.55-1.30); GLOMERULAR FILTRATION RATE > 60.0 (>58); GLUCOSE, FASTING 84 MG/DL (70-100); MAGNESIUM LEVEL 2.2 MG/DL (1.8-2.4); POTASSIUM SERUM 3.3 MEQ/L (3.5-5.1); SODIUM LEVEL 145 MEQ/L (136-145); TOTAL PROTEIN 6.5 GM/DL (6.4-8.2)
[2021-03-09] MEDS ORDERED: POTASSIUM CHLORIDE 10 MEQ SR TABLET PO ONE (06:30)
[2021-03-09] MEDS ORDERED: BACL1TAB9 PO (08:42)
--- NOTE | 2021-03-09 08:49 | MHIPN ---
[facility], LATER [facility] PROGRESS NOTE DATE: 03/08/2021 She was transferred from inpatient Psychiatry to the Hospitalist Service, as she was thought to be undergoing withdrawal from Baclofen, which she misuses. Dr. Do, Hospitalist, informed me this morning that Baclofen had been resumed, and the patient was at baseline, was not delirious, and not suicidal, and at this point likely does not require inpatient psychiatric care. I called the ICU later, spoke with the nurse, she indicated the patient has been doing well, and there were essentially no concerns, no difficulties with cognition, she was not suicidal nor homicidal, and was at baseline. I spoke with Dr. Do again, and he agreed that I did not need to see the patient, the plan was to discharge her, by the Hospitalist. She ought to be referred to outpatient care for misuse of medicine, and her clinicians ought to be informed.
[2021-03-09] MEDS: BACLOFEN 10 MG TAB PO SCH (09:15)
[2021-03-09] MEDS: FERROUS SULFATE 325MG TAB PO SCH (09:15)
--- NOTE | 2021-03-09 13:04 | IPNPDOC ---
Text Note Date of Service The patient was seen on 03/08/21. NOTE Subjective: Patient seen and examined at bedside. No acute overnight events reported. Patient has no new medical complaints this morning. Objective: VSS General: NAD, lying comfortably in bed HEENT: NC/AT, EOMI Lungs: CTA B/L Heart: +S1S2, RRR Abd: soft, NT, +BS Ext: no edema Neuro: AAOx3, no gross focal deficits A/P: 40 yo female admitted for psychosis, appears to be secondary to Baclofen withdrawal #Baclofen withdrawal - resolved - continue Baclofen with taper as outpatient #hypokalemia - continue to follow and replete as needed #psych - psychiatry c/s pending #DVT prophylaxis - mechanical VS,Fishbone, I+O VS, Fishbone, I+O Laboratory Tests 03/09/21 04:47 Vital Signs Date Time Temp Pulse Resp B/P (MAP) Pulse Ox O2 Delivery O2 Flow Rate FiO2 03/09/21 02:13 97.8 69 20 118/58 (78) 96 Room Air I&O- Last 24 Hours up to 6 AM 03/09/21 06:00 Intake Total 2532 ml Output Total 0 ml Balance 2532 ml JACKELIN RADER MD March 09, 2021 13:04
--- NOTE | 2021-03-09 13:24 | DS.PDOC ---
Discharge Summary General Date of Admission Mar 07, 2021 at 18:42 Date of Discharge 03/09/21 Specialist/Consultants Involve psychiatry Discharge Summary PROCEDURES PERFORMED DURING STAY: [None]. DISCHARGE DIAGNOSES: 1. baclofen withdrawal 2. psychosis COMPLICATIONS/CHIEF COMPLAINT: Baclofen Withdrawal. HPI/Hospital Course: 40 yo female presents to ED with complaints that she ran out of Baclofen and Tramadol ten days ago. Found to be confused and agitated in the ED. Admitted to [facility], and continued to experience baclofen withdrawal with agitation and hallucinations. Admitted to ICU, Baclofen resumed, symptoms resolved. Hospital stay otherwise unremarkable. DISCHARGE MEDICATIONS: Please see below. ALLERGIES: Please see below. PHYSICAL EXAMINATION ON DISCHARGE: VITAL SIGNS: Please see below. GENERAL: NAD, lying comfortably in bed, in good spirits HEENT: NC/AT, EOMI Lungs: CTA B/L Heart: +S1S2, RRR Abd: soft, NT, +BS Ext: no edema Neuro: AAOx3, no gross focal deficits LABORATORY DATA: Please see below. ACTIVITY: [As tolerated]. DISPOSITION: Home, Self-Care. DISCHARGE INSTRUCTIONS: 1. Follow up with PCP in 1-3 days. 2. Avoid drug misuse/abuse. 3. Medications as directed DISCHARGE CONDITION: [Stable]. TIME SPENT ON DISCHARGE: 35 minutes. Vital Signs/I&Os Vital Signs Date Time Temp Pulse Resp B/P (MAP) Pulse Ox O2 Delivery O2 Flow Rate FiO2 03/09/21 02:13 97.8 69 20 118/58 (78) 96 Room Air I&O- Last 24 Hours up to 6 AM 03/09/21 06:00 Intake Total 2532 ml Output Total 0 ml Balance 2532 ml Laboratory Data Labs 24H Laboratory Tests 2 03/09/21 04:47: Nucleated Red Blood Cells % (auto) 0.0, Anion Gap 3L, Glomerular Filtration Rate > 60.0, Calcium Level 8.3L, Magnesium Level 2.2, Total Bilirubin 0.4, Aspartate Amino Transf (AST/SGOT) 24, Alanine Aminotransferase (ALT/SGPT) 17, Alkaline Phosphatase 89, Total Protein 6.5, Albumin 3.2#, Albumin/Globulin Ratio 1.0L CBC/BMP Laboratory Tests 03/09/21 04:47 Discharge Medications Scheduled Baclofen (Baclofen) 20 Mg Tablet, 1 TAB PO TID Ferrous Sulfate (Iron) 325 Mg Tablet, 325 MG PO TID, (Reported) Allergies Coded Allergies: Sulfa (Sulfonamide Antibiotics) (Verified Allergy, Intermediate, hives, 03/02/19) sulfamethoxazole (Verified Allergy, Intermediate, hives, 03/02/19) trimethoprim (Verified Allergy, Intermediate, hives, 03/02/19) vancomycin (Verified Allergy, Intermediate, itchy at injection site & all over, 10/13/20) JACKELIN RADER MD March 09, 2021 13:24
== END 2021-03-09 09:45 | disposition home or self-care (01) | DRG 773 ==
LOC: M ICU 18:42
PROVIDERS: ADMIT Internal Medicine; ATTEND Internal Medicine
DX: F19.131 Other psychoactive substance abuse with withdrawal delirium (principal); F11.10 Opioid abuse, uncomplicated; Z78.1 Physical restraint status; K21.9 Gastro-esophageal reflux disease without esophagitis; D50.9 Iron deficiency anemia, unspecified; R44.1 Visual hallucinations; G47.00 Insomnia, unspecified; E87.6 Hypokalemia; Z79.899 Other long term (current) drug therapy; Z88.1 Allergy status to other antibiotic agents; Z88.2 Allergy status to sulfonamides; Z88.8 Allergy status to other drugs, medicaments and biological substances

== ENCOUNTER 2021-08-13 19:40 | Emergency (ER) | payer OTHER, SELFPAY ==
[~2021-08-13] VITALS: Ht 165.1 cm; Wt 92.1 kg
[2021-08-13 19:40] VITALS: BP 178/97
[~2021-08-13 19:40] MED LIST changes: +OMEP40CA4 PO; -OMEP40CA97 PO
== END 2021-08-14 00:10 | disposition left against medical advice (07) ==
LOC: M ED 19:40
DX: Z53.29 Procedure and treatment not carried out because of patient's decision for other reasons (principal)

== ENCOUNTER 2021-09-13 19:05 | Emergency (ER) | payer MEDICAID, SELFPAY ==
[~2021-09-13] VITALS: Ht 162.6 cm; Wt 90.9 kg
[2021-09-13 22:28] LABS: BASO % 0.4 % (0.0-1.0); HEMATOCRIT 37.9 % (36.0-47.0); HEMOGLOBIN 11.3 g/dl (12.0-15.5); LYMPH # 0.4 10^3/uL (1.5-5.0); LYMPH % 4.9 % (24.0-44.0); MEAN CORPUSCULAR HEMOGLOBIN 22.3 pg (27.0-33.0); MEAN CORPUSCULAR HGB CONC 29.8 g/dl (32.0-36.5); MEAN CORPUSCULAR VOLUME 74.8 fl (80.0-96.0); MONO # 0.2 10^3/uL (0.0-0.8); MONO % 2.4 % (2.0-8.0); NEUTROPHILS # 6.9 10^3/uL (1.5-8.5); NEUTROPHILS % 91.9 % (36.0-66.0); PLATELET COUNT, AUTOMATED 364 10^3/uL (150-450); RED BLOOD COUNT 5.07 10^6/uL (4.00-5.40); WHITE BLOOD COUNT 7.5 10^3/uL (4.0-10.0)
[2021-09-13] MEDS ORDERED: ONDANSETRON 4MG/2ML VIAL IV ONE (22:30)
[2021-09-13] MEDS ORDERED: MORPHINE 4 MG/ML 1ML VIAL/SYRINGE (J2270) IV PRN (22:30)
[2021-09-13] MEDS: GASTROGRAFIN SOLUTION 30ML PO SCH ×2 (22:40→23:30)
[2021-09-13 23:00] LABS: ALBUMIN 4.5 GM/DL (3.2-5.2); BILIRUBIN,DIRECT 0.1 MG/DL (0.0-0.2); BILIRUBIN,TOTAL 0.4 MG/DL (0.2-1.0); TOTAL PROTEIN 8.8 GM/DL (6.4-8.2)
[2021-09-14] MEDS ORDERED: ISOVUE-370 76% 100ML VIAL As Ordered ONE (00:15)
--- NOTE | 2021-09-14 01:03 | REPVR ---
PROCEDURE INFORMATION: Exam: CT Abdomen And Pelvis With Contrast Exam date and time: 09/13/2021 12:24 AM Age: 41 years old Clinical indication: Abdominal pain; Localized; Left upper quadrant (luq); Additional info: Luq abd pain, HX of gastric bypass TECHNIQUE: Imaging protocol: Computed tomography of the abdomen and pelvis with contrast. Radiation optimization: All CT scans at this facility use at least one of these dose optimization techniques: automated exposure control; mA and/or kV adjustment per patient size (includes targeted exams where dose is matched to clinical indication); or iterative reconstruction. Contrast material: ISOVUE 370; Contrast volume: 100 ml; Contrast route: INTRAVENOUS (IV); COMPARISON: 1. CR Spine. Lumbosacral, complete 2015-10-13 09:14 2. CR Spine. Lumbosacral, complete 2015-04-03 13:16 FINDINGS: Limitations: Limited by patient's body habitus. Lungs: Dependent subsegmental pulmonary atelectasis. Liver: Normal. No mass. Gallbladder and bile ducts: Gallbladder distension. No stones. Nonspecific mild prominence of the common biliary duct measuring 11 mm in the upper aspect of the pancreatic head, and more distal not visible. Gallbladder distended. No radiopaque calculi. Pancreas: A portion of the excluded comes in close proximity to the pancreas. No pancreatic inflammation. No acute abnormality. Spleen: Normal. No splenomegaly. Adrenal glands: Normal. No mass. Kidneys and ureters: Normal. No hydronephrosis. Stomach and bowel: Daniela-en-Y gastric bypass surgical changes in the left upper abdomen. Appendix: No evidence of appendicitis. Intraperitoneal space: Unremarkable. No free air. No significant fluid collection. Vasculature: Unremarkable. No abdominal aortic aneurysm. Lymph nodes: Unremarkable. No enlarged lymph nodes. Urinary bladder: Unremarkable as visualized. Reproductive: Clips in the left adnexa, presumably from salpingo-oophorectomy. Bones/joints: Mild lumbar spondylosis. Soft tissues: Unremarkable. IMPRESSION: 1. Daniela-en-Y gastric bypass surgical changes in the left upper abdomen. A portion of the excluded comes in close proximity to the pancreas. No pancreatic inflammation. No acute abnormality. 2. Nonspecific mild prominence of the common biliary duct measuring 11 mm in the upper aspect of the pancreatic head, and more distal not visible. Gallbladder distended. No radiopaque calculi. The Electronically signed by: Eulogio Hussein On 09/14/2021 01:03:17 AM
[2021-09-14 01:45] VITALS: BP 192/84
== END 2021-09-14 02:18 | disposition home or self-care (01) ==
LOC: M ED 19:05
DX: R10.9 Unspecified abdominal pain (principal); R11.2 Nausea with vomiting, unspecified; K21.9 Gastro-esophageal reflux disease without esophagitis; F99 Mental disorder, not otherwise specified; F19.10 Other psychoactive substance abuse, uncomplicated; Z88.1 Allergy status to other antibiotic agents; Z88.2 Allergy status to sulfonamides; Z88.8 Allergy status to other drugs, medicaments and biological substances; Z98.84 Bariatric surgery status
CPT/HCPCS: 74177; 80047; 80076; 81001; 83690; 84702; 85025; 96374; 99284; J2405; Q9963; Q9967

== ENCOUNTER → 2021-11-14 | Outpatient (CLI) | payer BC ==
[~2021-11-14] MED LIST changes: +HYDR50TA70 PO; +IRON27TA2 PO; +TIZA10TA PO; -TIZA4TAB4 PO
== END ==
LOC: M LABSMTC 11:10
PROVIDERS: ATTEND Anesthesiology
DX: Z01.818 Encounter for other preprocedural examination (principal); Z11.52 Encounter for screening for COVID-19

== ENCOUNTER → 2022-09-14 | Outpatient (CLI) | payer MEDICAID ==
[~2022-09-14] MED LIST changes: +LEVO1TAB40 PO; -LEVO750T13 PO
== END ==
LOC: M RAD 15:18
PROVIDERS: ATTEND Physician Assistant Medical
DX: M79.604 Pain in right leg (principal)

== ENCOUNTER 2022-10-22 10:48 | Emergency (ER) | payer MEDICAID ==
[~2022-10-22] VITALS: Ht 162.6 cm; Wt 108.5 kg
[2022-10-22] MEDS ORDERED: CYCL-707 (11:00)
[2022-10-22] MEDS ORDERED: KETOROLAC 30 MG/ML 1ML VIAL IM ONE (12:25)
[2022-10-22] MEDS ORDERED: LIDOCAINE 5% (LIDODERM) PATCH TD ONE (12:25)
[2022-10-22] MEDS ORDERED: methocarbamoL 500 MG TAB PO ONE (12:25)
[2022-10-22] MEDS ORDERED: METH-1164 PO (12:28)
[2022-10-22 12:47] VITALS: BP 133/66
== END 2022-10-22 12:50 | disposition home or self-care (01) ==
LOC: M ED 10:48
DX: G89.29 Other chronic pain (principal); M54.41 Lumbago with sciatica, right side; R60.9 Edema, unspecified; F32.A Depression, unspecified; F41.9 Anxiety disorder, unspecified; E55.9 Vitamin D deficiency, unspecified; Z98.84 Bariatric surgery status; K21.9 Gastro-esophageal reflux disease without esophagitis; K57.30 Diverticulosis of large intestine without perforation or abscess without bleeding; Z88.1 Allergy status to other antibiotic agents; Z88.2 Allergy status to sulfonamides; Z88.8 Allergy status to other drugs, medicaments and biological substances; Z79.899 Other long term (current) drug therapy
CPT/HCPCS: 96372; 99283; J1885

== ENCOUNTER 2025-01-14 10:16 | Inpatient (IN) | payer OTHER ==
[2025-01-14] VITALS (7 sets, daily range): BP systolic 124–148; BP diastolic 67–96; TEMP 97.2–97.9; O2SAT 95–100
[~2025-01-14] VITALS: Ht 162.6 cm; Wt 103.6 kg
[~2025-01-14 10:16] MED LIST changes: +CYCL-707; +METH-1164 PO; +ONDA-282 PO; -ONDA4TAB6 PO
[2025-01-14] MEDS: KETOROLAC 60MG 2ML VIAL IM ONE (13:34)
[2025-01-14] MEDS: methocarbamoL 500 MG TAB PO ONE (13:44)
[2025-01-14 15:03] LABS: BASO % 0.5 % (0.0-1.0); HEMATOCRIT 25.2 % (36.0-47.0); LYMPH # 1.2 10^3/uL (1.5-5.0); LYMPH % 28.6 % (24.0-44.0); MEAN CORPUSCULAR HEMOGLOBIN 17.4 pg (27.0-33.0); MEAN CORPUSCULAR HGB CONC 25.4 g/dl (32.0-36.5); MEAN CORPUSCULAR VOLUME 68.5 fl (80.0-96.0); MONO # 0.3 10^3/uL (0.0-0.8); MONO % 7.5 % (2.0-8.0); NEUTROPHILS # 2.6 10^3/uL (1.5-8.5); NEUTROPHILS % 62.2 % (36.0-66.0); PLATELET COUNT, AUTOMATED 250 10^3/uL (150-450); RED BLOOD COUNT 3.68 10^6/uL (4.00-5.40); WHITE BLOOD COUNT 4.1 10^3/uL (4.0-10.0)
[2025-01-14 15:05] LABS: HEMOGLOBIN 6.4 g/dl (12.0-15.5)
[2025-01-14 15:07] LABS: ERYTHROCYTE SEDIMENTATION RATE 69 mm/hr (0-20)
[2025-01-14 15:19] LABS: INR 0.98; PARTIAL THROMBOPLASTIN TIME 30.8 SECONDS (24.8-34.2); PROTHROMBIN TIME 13.3 SECONDS (12.5-14.5)
[2025-01-14 15:31] LABS: BLOOD UREA NITROGEN 7 MG/DL (9-23); C REACTIVE PROTEIN QUANTITATIV < 0.50 MG/DL (<1.0); CALCIUM LEVEL 9.1 MG/DL (8.5-10.1); CARBON DIOXIDE LEVEL 26 MMOL/L (20-31); CHLORIDE LEVEL 107 MMOL/L (98-107); CREATININE FOR GFR 0.53 MG/DL (0.55-1.30); GLOMERULAR FILTRATION RATE > 60.0 (>58); GLUCOSE, FASTING 87 MG/DL (60-100); POTASSIUM SERUM 3.9 MMOL/L (3.5-5.1); SODIUM LEVEL 142 MMOL/L (136-145)
[2025-01-14] MEDS ORDERED: MIRALAX *UNIT DOSE* 17GM PACKET PO PRN (16:00)
[2025-01-14] MEDS ORDERED: MORPHINE 4 MG/ML 1ML VIAL IV PRN (16:00)
[2025-01-14] MEDS ORDERED: oxyCODONE 5MG TAB PO PRN (16:00)
[2025-01-14] MEDS ORDERED: MOM 30ML SUSPENSION UDC PO PRN (16:00)
[2025-01-14] MEDS ORDERED: NALOXONE INJ 0.4MG/1ML VIAL IV PRN (16:00)
[2025-01-14 16:08] LABS: ALBUMIN 3.4 G/DL (3.2-5.2)
[2025-01-14 16:15] LABS: IRON (FE) 8 UG/DL (50-170); PERCENT SATURATION 1.8 % (13.2-45.0); TOTAL IRON BINDING CAPACITY 451 UG/DL (250-425)
[2025-01-14 16:17] LABS: FERRITIN 2.8 NG/ML (7.3-270.7)
[2025-01-14 16:18] LABS: TOTAL 25(OH) VITAMIN D 27.8 NG/ML (20.0-100.0)
[2025-01-14 16:59] LABS: SOURCE PERIPHERAL SMEAR
[2025-01-14] MEDS: oxyCODONE 5MG TAB PO ONE (17:00)
[2025-01-14] MEDS: BACLOFEN 10 MG TAB PO ONE (17:00)
[2025-01-14] MEDS: METOPROLOL TART 12.5 MG PER 1/2 TAB PO ONE (17:00)
[2025-01-14] MEDS: ACETAMINOPHEN 500 MG TAB PO SCH (17:18)
[2025-01-14] MEDS ORDERED: THERTAB52 PO (18:34)
[2025-01-14] MEDS ORDERED: PROHANCE 279.3MG/ML 5ML VIAL As Ordered ONE (18:36)
[2025-01-14] MEDS ORDERED: PROHANCE 279.3MG/ML 15ML VIAL As Ordered ONE (18:36)
[2025-01-14] MEDS ORDERED: HOME MED LIST COMPLETE! XX SCH (18:40)
[2025-01-14] MEDS: SUCRALFATE SUSP 1GM/10ML UD PO SCH (20:34)
[2025-01-15] VITALS (8 sets, daily range): BP systolic 122–136; BP diastolic 69–86; TEMP 97.3–97.5; O2SAT 94–97
[2025-01-15] MEDS: oxyCODONE 5MG TAB PO PRN (03:31)
[2025-01-15 03:32] LABS: HEMATOCRIT 27.5 % (36.0-47.0); HEMOGLOBIN 7.8 g/dl (12.0-15.5)
[2025-01-15 03:50] LABS: URINE PREG TEST NEGATIVE (NEGATIVE)
[2025-01-15 03:54] LABS: KETONE, URINE MANUAL REFLEX NEGATIVE (NEGATIVE); NITRITE, URINE MANUAL RFX NEGATIVE (NEGATIVE); PROTEIN, URINE MANUAL REFLEX NEGATIVE (NEGATIVE); SP GRAVITY,URINE MANUAL REFLEX 1.005 (1.002-1.035); UROBILINOGEN, UA MANUAL REFLEX NORMAL (NORMAL)
[2025-01-15 04:16] LABS: AMPHETAMINES LEVEL URINE NEGATIVE (NEGATIVE); BARBITURATES URINE NEGATIVE (NEGATIVE); BENZODIAZEPINES URINE NEGATIVE (NEGATIVE); CANNABINOIDS URINE NEGATIVE (NEGATIVE); COCAINE METABOLITE URINE NEGATIVE (NEGATIVE); METHADONE URINE NEGATIVE (NEGATIVE); PHENCYCLIDINE URINE NEGATIVE (NEGATIVE)
[2025-01-15 04:17] LABS: OPIATES URINE POSITIVE (NEGATIVE)
[2025-01-15 07:20] LABS: HEMATOCRIT 31.6 % (36.0-47.0); HEMOGLOBIN 8.9 g/dl (12.0-15.5); MEAN CORPUSCULAR HEMOGLOBIN 20.2 pg (27.0-33.0); MEAN CORPUSCULAR HGB CONC 28.2 g/dl (32.0-36.5); MEAN CORPUSCULAR VOLUME 71.7 fl (80.0-96.0); PLATELET COUNT, AUTOMATED 271 10^3/uL (150-450); RED BLOOD COUNT 4.41 10^6/uL (4.00-5.40); WHITE BLOOD COUNT 4.4 10^3/uL (4.0-10.0)
[2025-01-15 07:52] LABS: BLOOD UREA NITROGEN 7 MG/DL (9-23); CALCIUM LEVEL 8.8 MG/DL (8.5-10.1); CARBON DIOXIDE LEVEL 25 MMOL/L (20-31); CHLORIDE LEVEL 109 MMOL/L (98-107); CREATININE FOR GFR 0.62 MG/DL (0.55-1.30); GLOMERULAR FILTRATION RATE > 60.0 (>58); GLUCOSE, FASTING 76 MG/DL (60-100); POTASSIUM SERUM 4.1 MMOL/L (3.5-5.1); SODIUM LEVEL 144 MMOL/L (136-145)
[2025-01-15] MEDS: PANTOPRAZOLE 40MG TAB (PROTONIX) PO SCH (08:23)
[2025-01-15] MEDS: FERROUS SULFATE 300MG/5ML UDC LIQUID PO SCH (08:23)
[2025-01-15] MEDS: ASCORBIC ACID 500 MG TAB PO SCH (08:23)
[2025-01-15 08:31] LABS: HEMOGLOBIN A1c 4.9 % (4.0-6.0)
[2025-01-15] MEDS ORDERED: OMEPRAZOLE 20MG CAP PO SCH (09:00)
[2025-01-15] MEDS ORDERED: TRAM50TA2 PO (11:08)
[2025-01-15] MEDS ORDERED: ASCO50TA PO (11:08)
[2025-01-15] MEDS ORDERED: CARA1TAB6 PO (11:08)
[2025-01-15] MEDS ORDERED: PANT40TA29 PO (11:08)
[2025-01-15] MEDS ORDERED: ACET-683 PO (11:08)
[2025-01-15] MEDS ORDERED: PREG25CA PO ×2 (11:08→11:11)
[2025-01-15] MEDS ORDERED: FERR325T3 PO (11:08)
[2025-01-15] MEDS ORDERED: SENO8.6T10 PO (11:08)
[2025-01-15] MEDS ORDERED: traMADol 50 MG TAB PO PRN (11:15)
[2025-01-15] MEDS: PREGABALIN 25 MG CAP (LYRICA) PO ONE (13:06)
[2025-01-15] MEDS: traMADol 50 MG TAB PO ONE (13:08)
[2025-01-15] MEDS ORDERED: PREGABALIN 25 MG CAP (LYRICA) PO SCH (21:00)
[2025-01-16 14:53] LABS: T P ELECTROPHORESIS SO 6.3 g/dL (6.1-8.1)
== END 2025-01-15 15:00 | disposition home or self-care (01) | DRG 351 ==
LOC: M ED 10:16 → M ED INP 15:46 → M MS5PR 16:42
PROVIDERS: ADMIT General Practice; ATTEND General Practice
DX: M25.451 Effusion, right hip (principal); F11.20 Opioid dependence, uncomplicated; M16.11 Unilateral primary osteoarthritis, right hip; M48.061 Spinal stenosis, lumbar region without neurogenic claudication; G89.29 Other chronic pain; M54.50 Low back pain, unspecified; E66.9 Obesity, unspecified; D50.9 Iron deficiency anemia, unspecified; R26.89 Other abnormalities of gait and mobility; K21.00 Gastro-esophageal reflux disease with esophagitis, without bleeding; M65.951 Unspecified synovitis and tenosynovitis, right thigh; E55.9 Vitamin D deficiency, unspecified; E53.8 Deficiency of other specified B group vitamins; M54.2 Cervicalgia; M47.816 Spondylosis without myelopathy or radiculopathy, lumbar region; Z88.2 Allergy status to sulfonamides; Z88.1 Allergy status to other antibiotic agents; Z88.8 Allergy status to other drugs, medicaments and biological substances

== ENCOUNTER → 2025-01-18 | Outpatient (CLI) | payer OTHER ==
[~2025-01-18] MED LIST changes: +ASCO50TA PO; +CARA1TAB6 PO; +PANT40TA29 PO; +PREG25CA PO; +SENO8.6T10 PO; +THERTAB52 PO
== END ==
LOC: M SOG 14:13
PROVIDERS: ATTEND Orthopaedic Surgery
DX: M16.11 Unilateral primary osteoarthritis, right hip (principal)

== ENCOUNTER → 2025-02-20 | Outpatient (CLI) | payer OTHER | LOC: M SOG 07:52 | PROVIDERS: ATTEND Orthopaedic Surgery | DX: M25.562 Pain in left knee (principal); M25.561 Pain in right knee ==

== ENCOUNTER → 2025-05-16 | Outpatient (CLI) | payer OTHER ==
[~2025-05-16] MED LIST changes: -PREG25CA PO; +PREG25CA63 PO
== END ==
LOC: M SOG 07:10
PROVIDERS: ATTEND Orthopaedic Surgery
DX: M25.562 Pain in left knee (principal); M25.561 Pain in right knee

== ENCOUNTER → 2025-05-18 | Outpatient (CLI) | payer OTHER | LOC: M SOG 07:20 | PROVIDERS: ATTEND Orthopaedic Surgery | DX: M25.562 Pain in left knee (principal); M25.561 Pain in right knee ==

== ENCOUNTER → 2025-08-21 | Outpatient (CLI) | payer OTHER ==
[~2025-08-21] MED LIST changes: -IBUP-1022 PO; +IBUP600T42 PO
== END ==
LOC: M SOG 07:19
PROVIDERS: ATTEND Orthopaedic Surgery
DX: M87.051 Idiopathic aseptic necrosis of right femur (principal); M16.11 Unilateral primary osteoarthritis, right hip

== ENCOUNTER → 2025-08-24 | Outpatient (CLI) | payer OTHER ==
[2025-08-24 12:28] LABS: BASO # 0.0 10^3/uL (0.0-0.2); BASO % 0.4 % (0.0-1.0); EOS # 0.0 10^3/uL (0.0-0.5); EOS % 0.9 % (0.0-3.0); LYMPH # 1.0 10^3/uL (1.5-5.0); LYMPH % 20.4 % (24.0-44.0); MONO # 0.4 10^3/uL (0.0-0.8); MONO % 8.8 % (2.0-8.0); NEUTROPHILS # 3.2 10^3/uL (1.5-8.5); NEUTROPHILS % 69.3 % (36.0-66.0); PLATELET COUNT, AUTOMATED 202 10^3/uL (150-450)
[2025-08-24 13:02] LABS: IRON (FE) 19 UG/DL (50-170); PERCENT SATURATION 4.3 % (13.2-45.0)
[2025-08-24 13:03] LABS: ALT/SGPT 21 U/L (7.0-40); AST/SGOT 22 U/L (<34); CALCIUM LEVEL 8.7 MG/DL (8.5-10.1); CARBON DIOXIDE LEVEL 25 MMOL/L (20-31); CHLORIDE LEVEL 106 MMOL/L (98-107); CREATININE FOR GFR 0.61 MG/DL (0.55-1.30); GLOMERULAR FILTRATION RATE > 90.0 (>58); MAGNESIUM LEVEL 1.8 MG/DL (1.8-2.4); POTASSIUM SERUM 4.0 MMOL/L (3.5-5.1); SODIUM LEVEL 142 MMOL/L (136-145)
[2025-08-24 13:04] LABS: TOTAL 25(OH) VITAMIN D 20.7 NG/ML (20.0-100.0)
[2025-08-24 13:05] LABS: VITAMIN B12 LEVEL 1357 PG/ML (211-911)
== END ==
LOC: M LAB 11:37
PROVIDERS: ATTEND Nurse Practitioner Family
DX: K91.2 Postsurgical malabsorption, not elsewhere classified (principal); E55.9 Vitamin D deficiency, unspecified; D50.9 Iron deficiency anemia, unspecified; Z79.899 Other long term (current) drug therapy; Z98.84 Bariatric surgery status

== ENCOUNTER → 2025-09-27 | Outpatient (CLI) | payer OTHER | LOC: M SOG 07:42 | PROVIDERS: ATTEND Orthopaedic Surgery | DX: M87.051 Idiopathic aseptic necrosis of right femur (principal); M16.11 Unilateral primary osteoarthritis, right hip ==